=== PATIENT | female | born 1960 | race Caucasian/White ===

== ENCOUNTER 2016-06-29 11:10 | Inpatient (IN) | payer MEDICAID ==
[~2016-06-29] VITALS: Ht 165.1 cm; Wt 150.8 kg
[~2016-06-29 11:10] MED LIST: LANTUS100 U/ML SQ; MOTRIN 600600 MG/TAB PO; NORCO 325 MG-51 TAB PO; NOVOLOG 100U100 U/M1 SQ; PERCOCET 325 MG1 TA2 PO; PRINZIDE 12.5 M1 TA1 PO; ZOCOR 80MG80 MG PO
[2016-06-29 12:30] VITALS: BP 122/59; PULSE 83; TEMP 98.1
[2016-06-29] MEDS ORDERED: TOPROL XL 50MG50 MG PO (13:50)
[2016-06-29] MEDS ORDERED: LASIX 40MG TABL40 MG PO (13:51)
[2016-06-29] MEDS ORDERED: NORVASC2.5 MG PO (13:51)
[2016-06-29 17:38] VITALS: BP 131/55; PULSE 89; TEMP 99.2
[2016-06-29 20:58] VITALS: BP 150/75; PULSE 93; TEMP 98.3
[2016-06-30] VITALS (370 sets, daily range): BP systolic 126–151; BP diastolic 50–67; PULSE 74–90; TEMP 98–99.7; O2SAT 85–100
[2016-06-30 08:50] LABS: ADJUSTED CALCIUM 9.1 mg/dL (8.4-10.2); ALBUMIN 3.3 gm/dL (3.5-5.0); BILIRUBIN,TOTAL 0.5 mg/dL (0.0-1.0); CALCIUM 8.5 mg/dL (8.4-10.2); CREATININE, serum 2.6 mg/dL (0.52-1.25); TOTAL PROTEIN 6.7 gm/dL (6.4-8.2)
[2016-06-30 09:26] LABS: MAGNESIUM 2.1 mg/dL (1.6-2.3); PHOSPHOROUS 7.6 mg/dL (2.5-4.5)
[2016-06-30 09:53] LABS: ARTERIAL BLD GAS TCO2 CT 37.3; ARTERIAL BLOOD GAS HCO3 34.2 meq/L (22-26); ARTERIAL BLOOD GAS PO2 63.9 mmHg (80-100); ARTERIAL BLOOD GAS PO2T 63.9 (80-100); OXYHEMOGLOBIN 86.9 %
[2016-06-30 09:54] LABS: ALLEN TEST NO; ARTERIAL BLOOD GAS PHT 7.14 C (7.35-7.45); ARTERIAL BLOOD GAS pH 7.14 (7.35-7.45); ATS? YES
[2016-06-30 11:04] LABS: ARTERIAL BLD GAS O2 SATURATION 92.4 % (92-100); ARTERIAL BLD GAS TCO2 CT 39.7; ARTERIAL BLOOD GAS BASE EXCESS 4.4 (-2-2); ARTERIAL BLOOD GAS HCO3 36.4 meq/L (22-26); ARTERIAL BLOOD GAS PO2 74.2 mmHg (80-100); ARTERIAL BLOOD GAS PO2T 74.2 (80-100); OXYHEMOGLOBIN 90.5 %
[2016-06-30 11:05] LABS: ARTERIAL BLOOD GAS PHT 7.16 C (7.35-7.45); ARTERIAL BLOOD GAS pH 7.16 (7.35-7.45); ATS? YES
[2016-06-30 14:10] LABS: HEMATOCRIT 41.5 % (37.0-47.0); MEAN CELL VOLUME 93 fl (80.0-100.0); MEAN CORPUSCULAR HEMOGLOBIN 25 pg (27.0-31.0); MEAN CORPUSCULAR HGB CONC 27 g/dl (33.0-37.0); MEAN PLATELET VOLUME 11.1 fl (7.4-10.4); PLATELET COUNT 181 K/mm3 (130-400); RED BLOOD COUNT 4.46 M/mm3 (4.10-5.30); REDCELL DISTRIBUTION WIDTH-CV 17.6 % (11.5-14.5); WHITE BLOOD COUNT 11.7 K/mm3 (4.8-10.8)
[2016-06-30 14:36] LABS: ADD PATHOLOGY DIFF REVIEW NO
[2016-06-30 14:52] LABS: NEUTROPHILS 67 % (42.0-75.2)
[2016-06-30 14:53] LABS: ANISOCYTOSIS 1+; HYPOCHROMIA 1+; PLATELET ESTIMATE NORMAL (NORMAL)
[2016-06-30 14:58] LABS: BAND 11 % (0-10); EOSINOPHIL 1 % (0-4); TOTAL CELLS COUNTED 100
[2016-06-30 16:55] LABS: ARTERIAL BLD GAS O2 SATURATION 98.5 % (92-100); ARTERIAL BLD GAS TCO2 CT 32.6; ARTERIAL BLOOD GAS BASE EXCESS 5.5 (-2-2); ARTERIAL BLOOD GAS HCO3 31.1 meq/L (22-26); ARTERIAL BLOOD GAS PHT 7.42 C (7.35-7.45); ARTERIAL BLOOD GAS pH 7.42 (7.35-7.45); OXYHEMOGLOBIN 96.7 %
[2016-06-30 16:56] LABS: ARTERIAL BLOOD GAS PO2 128.7 mmHg (80-100); ARTERIAL BLOOD GAS PO2T 128.7 (80-100); ATS? NO
[2016-07-01] VITALS (766 sets, daily range): BP systolic 120–129; BP diastolic 54–66; PULSE 93–99; TEMP 98.2–100.5; O2SAT 82–99
[2016-07-01 00:45] LABS: BRONCH WASH FLUID MONONUCLEAR 100 % (0-75); BRONCH WASH POLY - PMN 0 % (0-25)
[2016-07-01 04:23] LABS: ARTERIAL BLD GAS O2 SATURATION 95.6 % (92-100); ARTERIAL BLD GAS TCO2 CT 29.4; ARTERIAL BLOOD GAS HCO3 28.2 meq/L (22-26); ARTERIAL BLOOD GAS PO2 79.7 mmHg (80-100); ARTERIAL BLOOD GAS pH 7.46 (7.35-7.45); OXYHEMOGLOBIN 94.7 %
[2016-07-01 04:24] LABS: ALLEN TEST NO; ATS? NO
[2016-07-01 05:31] LABS: MEAN CORPUSCULAR HGB CONC 30 g/dl (33.0-37.0); MEAN PLATELET VOLUME 10.6 fl (7.4-10.4); PLATELET COUNT 171 K/mm3 (130-400); RED BLOOD COUNT 4.37 M/mm3 (4.10-5.30); REDCELL DISTRIBUTION WIDTH-CV 17.7 % (11.5-14.5); WHITE BLOOD COUNT 12.8 K/mm3 (4.8-10.8)
[2016-07-01 05:43] LABS: HEMATOCRIT 36.2 % (37.0-47.0); HEMOGLOBIN 10.7 g/dl (12.5-16.0); MEAN CELL VOLUME 83 fl (80.0-100.0); MEAN CORPUSCULAR HEMOGLOBIN 24 pg (27.0-31.0)
[2016-07-01 05:44] LABS: ADD PATHOLOGY DIFF REVIEW NO
[2016-07-01 05:46] LABS: ADJUSTED CALCIUM 9.7 mg/dL (8.4-10.2); ALBUMIN 2.8 gm/dL (3.5-5.0); BILIRUBIN,TOTAL 0.6 mg/dL (0.0-1.0); CALCIUM 8.7 mg/dL (8.4-10.2); CREATININE, serum 2.49 mg/dL (0.52-1.25); MAGNESIUM 1.8 mg/dL (1.6-2.3); PHOSPHOROUS 4.8 mg/dL (2.5-4.5); POTASSIUM 3.5 mmol/L (3.4-5.0); TOTAL PROTEIN 6.1 gm/dL (6.4-8.2)
[2016-07-01 09:02] LABS: ARTERIAL BLD GAS O2 SATURATION 96.1 % (92-100); ARTERIAL BLD GAS TCO2 CT 29.5; ARTERIAL BLOOD GAS HCO3 28.2 meq/L (22-26); ARTERIAL BLOOD GAS PHT 7.46 C (7.35-7.45); ARTERIAL BLOOD GAS PO2 86.4 mmHg (80-100); ARTERIAL BLOOD GAS PO2T 86.4 (80-100); ARTERIAL BLOOD GAS pH 7.46 (7.35-7.45); OXYHEMOGLOBIN 95.1 %
[2016-07-01 09:03] LABS: ABG VENTILATOR TIDAL VOLUME 420 mL; ALLEN TEST NO; ATS? NO
[2016-07-01 09:41] LABS: ANISOCYTOSIS 2+; BAND 7 % (0-10); NEUTROPHILS 82 % (42.0-75.2); PLATELET ESTIMATE NORMAL (NORMAL); POLYCHROMASIA 1+; TOTAL CELLS COUNTED 100
[2016-07-02] VITALS (1079 sets, daily range): BP systolic 130–151; BP diastolic 57–71; PULSE 82–96; TEMP 98.4–101.4; O2SAT 88–99
[2016-07-02 05:03] LABS: ARTERIAL BLD GAS O2 SATURATION 92.4 % (92-100); ARTERIAL BLD GAS TCO2 CT 27.9; ARTERIAL BLOOD GAS BASE EXCESS 2.2 (-2-2); ARTERIAL BLOOD GAS HCO3 26.7 meq/L (22-26); ARTERIAL BLOOD GAS PHT 7.43 C (7.35-7.45); ARTERIAL BLOOD GAS PO2 69.4 mmHg (80-100); ARTERIAL BLOOD GAS PO2T 69.4 (80-100); ARTERIAL BLOOD GAS pH 7.43 (7.35-7.45); OXYHEMOGLOBIN 91.6 %
[2016-07-02 05:04] LABS: ATS? NO
[2016-07-02 06:15] LABS: BASO % 0.1 % (0.0-2.0); GRAN # 8.3 (1.4-6.5); GRAN % 87.2 % (42.2-75.2); LYMPH # 0.5 (1.2-3.4); LYMPH % 4.8 % (20.0-51.0); MEAN CELL VOLUME 83 fl (80.0-100.0); MEAN CORPUSCULAR HEMOGLOBIN 25 pg (27.0-31.0); MEAN CORPUSCULAR HGB CONC 30 g/dl (33.0-37.0); MEAN PLATELET VOLUME 10.5 fl (7.4-10.4); MONO # 0.7 (0.1-0.6); MONO % 6.9 % (1.7-9.3); PLATELET COUNT 168 K/mm3 (130-400); RED BLOOD COUNT 4.44 M/mm3 (4.10-5.30); REDCELL DISTRIBUTION WIDTH-CV 17.7 % (11.5-14.5); WHITE BLOOD COUNT 9.5 K/mm3 (4.8-10.8)
[2016-07-02 06:16] LABS: HEMOGLOBIN 10.9 g/dl (12.5-16.0)
[2016-07-02 06:41] LABS: ADJUSTED CALCIUM 9.7 mg/dL (8.4-10.2); BILIRUBIN,TOTAL 0.6 mg/dL (0.0-1.0); CALCIUM 8.9 mg/dL (8.4-10.2); CREATININE, serum 2.15 mg/dL (0.52-1.25); PHOSPHOROUS 6.4 mg/dL (2.5-4.5); POTASSIUM 3.7 mmol/L (3.4-5.0); TOTAL PROTEIN 6.3 gm/dL (6.4-8.2)
[2016-07-03] VITALS (822 sets, daily range): BP systolic 142–177; BP diastolic 57–77; PULSE 64–80; TEMP 97.1–98.7; O2SAT 67–100
[2016-07-03 05:38] LABS: ARTERIAL BLD GAS TCO2 CT 33.4; ARTERIAL BLOOD GAS BASE EXCESS 7.2 (-2-2); ARTERIAL BLOOD GAS PHT 7.46 C (7.35-7.45); ARTERIAL BLOOD GAS PO2 72.6 mmHg (80-100); ARTERIAL BLOOD GAS PO2T 72.6 (80-100); ARTERIAL BLOOD GAS pH 7.46 (7.35-7.45); OXYHEMOGLOBIN 91.5 %
[2016-07-03 05:41] LABS: ALLEN TEST NO
[2016-07-03 05:43] LABS: MEAN CELL VOLUME 84 fl (80.0-100.0); MEAN CORPUSCULAR HEMOGLOBIN 24 pg (27.0-31.0); MEAN CORPUSCULAR HGB CONC 29 g/dl (33.0-37.0); MEAN PLATELET VOLUME 10.4 fl (7.4-10.4); PLATELET COUNT 158 K/mm3 (130-400); RED BLOOD COUNT 4.53 M/mm3 (4.10-5.30); REDCELL DISTRIBUTION WIDTH-CV 17.4 % (11.5-14.5); WHITE BLOOD COUNT 6.5 K/mm3 (4.8-10.8)
[2016-07-03 05:47] LABS: ADD PATHOLOGY DIFF REVIEW NO
[2016-07-03 05:56] LABS: ADJUSTED CALCIUM 9.7 mg/dL (8.4-10.2); ALBUMIN 3.1 gm/dL (3.5-5.0); BILIRUBIN,TOTAL 0.5 mg/dL (0.0-1.0); CREATININE, serum 1.94 mg/dL (0.52-1.25); MAGNESIUM 1.9 mg/dL (1.6-2.3); PHOSPHOROUS 6.5 mg/dL (2.5-4.5); TOTAL PROTEIN 6.3 gm/dL (6.4-8.2)
[2016-07-03 10:41] LABS: BAND 3 % (0-10); NEUTROPHILS 86 % (42.0-75.2); TOTAL CELLS COUNTED 100
[2016-07-03 10:42] LABS: ANISOCYTOSIS 1+; HYPOCHROMIA 1+; MICROCYTOSIS 1+; OVALOCYTES 1+; PLATELET ESTIMATE NORMAL (NORMAL); TEAR DROP CELLS 1+; TOXIC GRANULATION PRESENT
[2016-07-04] VITALS (1179 sets, daily range): BP systolic 151–173; BP diastolic 57–69; PULSE 74–96; TEMP 98.1–99.5; O2SAT 86–99
[2016-07-04 02:30] LABS: ARTERIAL BLD GAS O2 SATURATION 91.9 % (92-100); ARTERIAL BLOOD GAS BASE EXCESS 9.7 (-2-2); ARTERIAL BLOOD GAS HCO3 35.5 meq/L (22-26); ARTERIAL BLOOD GAS pH 7.44 (7.35-7.45)
[2016-07-04 02:31] LABS: ALLEN TEST NO; ARTERIAL BLD GAS TCO2 CT 37.1; ATS? NO
[2016-07-04 06:22] LABS: ARTERIAL BLD GAS O2 SATURATION 92.1 % (92-100); ARTERIAL BLD GAS TCO2 CT 36.9; ARTERIAL BLOOD GAS BASE EXCESS 10.3 (-2-2); ARTERIAL BLOOD GAS HCO3 35.4 meq/L (22-26); ARTERIAL BLOOD GAS PHT 7.47 C (7.35-7.45); ARTERIAL BLOOD GAS pH 7.47 (7.35-7.45); OXYHEMOGLOBIN 91.5 %
[2016-07-04 06:23] LABS: ALLEN TEST NO; ATS? NO
[2016-07-04 06:25] LABS: BASO % 0.1 % (0.0-2.0); GRAN # 6.2 (1.4-6.5); GRAN % 83.6 % (42.2-75.2); HEMATOCRIT 40.5 % (37.0-47.0); LYMPH # 0.6 (1.2-3.4); MEAN CELL VOLUME 85 fl (80.0-100.0); MEAN CORPUSCULAR HEMOGLOBIN 24 pg (27.0-31.0); MEAN CORPUSCULAR HGB CONC 28 g/dl (33.0-37.0); MEAN PLATELET VOLUME 10.7 fl (7.4-10.4); MONO # 0.6 (0.1-0.6); MONO % 7.8 % (1.7-9.3); PLATELET COUNT 167 K/mm3 (130-400); RED BLOOD COUNT 4.75 M/mm3 (4.10-5.30); REDCELL DISTRIBUTION WIDTH-CV 17.6 % (11.5-14.5); WHITE BLOOD COUNT 7.4 K/mm3 (4.8-10.8)
[2016-07-04 06:41] LABS: CALCIUM 9.1 mg/dL (8.4-10.2); CREATININE, serum 1.75 mg/dL (0.52-1.25); POTASSIUM 3.9 mmol/L (3.4-5.0)
[2016-07-04 06:46] LABS: HEMOGLOBIN 11.5 g/dl (12.5-16.0); LYMPH % 7.7 % (20.0-51.0)
[2016-07-05] VITALS (1196 sets, daily range): BP systolic 124–160; BP diastolic 45–68; PULSE 74–99; TEMP 97.5–99.4; O2SAT 83–100
[2016-07-05 06:10] LABS: BASO % 0.1 % (0.0-2.0); GRAN # 5.8 (1.4-6.5); GRAN % 79.4 % (42.2-75.2); HEMATOCRIT 41.7 % (37.0-47.0); HEMOGLOBIN 11.6 g/dl (12.5-16.0); LYMPH # 0.7 (1.2-3.4); LYMPH % 9.6 % (20.0-51.0); MEAN CELL VOLUME 87 fl (80.0-100.0); MEAN CORPUSCULAR HEMOGLOBIN 24 pg (27.0-31.0); MEAN CORPUSCULAR HGB CONC 28 g/dl (33.0-37.0); MEAN PLATELET VOLUME 9.7 fl (7.4-10.4); MONO # 0.8 (0.1-0.6); MONO % 10.4 % (1.7-9.3); PLATELET COUNT 148 K/mm3 (130-400); RED BLOOD COUNT 4.79 M/mm3 (4.10-5.30); REDCELL DISTRIBUTION WIDTH-CV 17.4 % (11.5-14.5); WHITE BLOOD COUNT 7.3 K/mm3 (4.8-10.8)
[2016-07-05 06:22] LABS: CALCIUM 9.1 mg/dL (8.4-10.2); CREATININE, serum 1.66 mg/dL (0.52-1.25); POTASSIUM 4.2 mmol/L (3.4-5.0)
[2016-07-05 09:35] LABS: ARTERIAL BLD GAS O2 SATURATION 94.6 % (92-100); ARTERIAL BLD GAS TCO2 CT 36.7; ARTERIAL BLOOD GAS BASE EXCESS 9.4 (-2-2); ARTERIAL BLOOD GAS PHT 7.43 C (7.35-7.45); ARTERIAL BLOOD GAS PO2 81.3 mmHg (80-100); ARTERIAL BLOOD GAS PO2T 81.3 (80-100); ARTERIAL BLOOD GAS pH 7.43 (7.35-7.45); OXYHEMOGLOBIN 93.7 %
[2016-07-06] VITALS (1363 sets, daily range): BP systolic 125–158; BP diastolic 45–80; PULSE 68–114; TEMP 97.8–99.5; O2SAT 86–100
[2016-07-06 05:46] LABS: BASO % 0.1 % (0.0-2.0); EOS % 0.1 % (0-4.0); GRAN # 8.7 (1.4-6.5); GRAN % 83.8 % (42.2-75.2); HEMATOCRIT 43.1 % (37.0-47.0); LYMPH # 0.8 (1.2-3.4); LYMPH % 7.4 % (20.0-51.0); MEAN CELL VOLUME 88 fl (80.0-100.0); MEAN CORPUSCULAR HEMOGLOBIN 24 pg (27.0-31.0); MEAN CORPUSCULAR HGB CONC 27 g/dl (33.0-37.0); MEAN PLATELET VOLUME 10.6 fl (7.4-10.4); MONO # 0.8 (0.1-0.6); MONO % 8.1 % (1.7-9.3); PLATELET COUNT 147 K/mm3 (130-400); RED BLOOD COUNT 4.89 M/mm3 (4.10-5.30); REDCELL DISTRIBUTION WIDTH-CV 17.3 % (11.5-14.5); WHITE BLOOD COUNT 10.4 K/mm3 (4.8-10.8)
[2016-07-06 05:49] LABS: HEMOGLOBIN 11.7 g/dl (12.5-16.0)
[2016-07-06 05:58] LABS: CALCIUM 8.9 mg/dL (8.4-10.2); CREATININE, serum 1.56 mg/dL (0.52-1.25); POTASSIUM 4.7 mmol/L (3.4-5.0)
[2016-07-06 10:57] LABS: ARTERIAL BLD GAS O2 SATURATION 92.8 % (92-100); ARTERIAL BLD GAS TCO2 CT 40.8; ARTERIAL BLOOD GAS BASE EXCESS 11.2 (-2-2); ARTERIAL BLOOD GAS HCO3 38.7 meq/L (22-26); ARTERIAL BLOOD GAS PHT 7.39 C (7.35-7.45); ARTERIAL BLOOD GAS PO2 70.7 mmHg (80-100); ARTERIAL BLOOD GAS PO2T 70.7 (80-100); ARTERIAL BLOOD GAS pH 7.39 (7.35-7.45); OXYHEMOGLOBIN 91.6 %
[2016-07-06 10:59] LABS: ATS? NO
[2016-07-06 11:00] LABS: ARTERIAL BLD GAS O2 SATURATION 92.5 % (92-100); ARTERIAL BLD GAS TCO2 CT 37.9; ARTERIAL BLOOD GAS BASE EXCESS 8.5 (-2-2); ARTERIAL BLOOD GAS HCO3 35.9 meq/L (22-26); ARTERIAL BLOOD GAS PHT 7.36 C (7.35-7.45); ARTERIAL BLOOD GAS pH 7.36 (7.35-7.45); OXYHEMOGLOBIN 91.7 %
[2016-07-06 11:02] LABS: ATS? NO
[2016-07-06 16:01] LABS: ATS? NO
[2016-07-07] VITALS (1181 sets, daily range): BP systolic 151–167; BP diastolic 68–97; PULSE 86–111; TEMP 97.5–98.6; O2SAT 86–100
[2016-07-07 05:22] LABS: EOS # 0.1 (0.0-0.7); EOS % 0.5 % (0-4.0); GRAN # 7.1 (1.4-6.5); GRAN % 72.4 % (42.2-75.2); HEMATOCRIT 40.9 % (37.0-47.0); LYMPH # 1.5 (1.2-3.4); LYMPH % 15.7 % (20.0-51.0); MEAN CELL VOLUME 86 fl (80.0-100.0); MEAN CORPUSCULAR HEMOGLOBIN 24 pg (27.0-31.0); MEAN CORPUSCULAR HGB CONC 28 g/dl (33.0-37.0); MEAN PLATELET VOLUME 11.2 fl (7.4-10.4); MONO # 1.1 (0.1-0.6); MONO % 11.1 % (1.7-9.3); PLATELET COUNT 159 K/mm3 (130-400); RED BLOOD COUNT 4.74 M/mm3 (4.10-5.30); REDCELL DISTRIBUTION WIDTH-CV 17.1 % (11.5-14.5); WHITE BLOOD COUNT 9.8 K/mm3 (4.8-10.8)
[2016-07-07 05:27] LABS: HEMOGLOBIN 11.5 g/dl (12.5-16.0)
[2016-07-07 05:35] LABS: ADJUSTED CALCIUM 9.7 mg/dL (8.4-10.2); ALBUMIN 2.9 gm/dL (3.5-5.0); BILIRUBIN,TOTAL 0.8 mg/dL (0.0-1.0); CALCIUM 8.8 mg/dL (8.4-10.2); CREATININE, serum 1.48 mg/dL (0.52-1.25); POTASSIUM 4.1 mmol/L (3.4-5.0); TOTAL PROTEIN 5.8 gm/dL (6.4-8.2)
[2016-07-07 05:36] LABS: ALLEN TEST YES; ARTERIAL BLD GAS O2 SATURATION 93.3 % (92-100); ARTERIAL BLD GAS TCO2 CT 41.9; ARTERIAL BLOOD GAS BASE EXCESS 13.5 (-2-2); ARTERIAL BLOOD GAS HCO3 40.1 meq/L (22-26); ARTERIAL BLOOD GAS PO2 68.2 mmHg (80-100); ARTERIAL BLOOD GAS pH 7.45 (7.35-7.45); ATS? YES
[2016-07-08] VITALS (455 sets, daily range): BP systolic 124–146; BP diastolic 52–79; PULSE 93–108; TEMP 97.5–99.3; O2SAT 82–100
[2016-07-08 05:47] LABS: CALCIUM 8.6 mg/dL (8.4-10.2); CREATININE, serum 1.45 mg/dL (0.52-1.25); POTASSIUM 3.7 mmol/L (3.4-5.0)
[2016-07-09 00:18] VITALS: BP 149/79; PULSE 104; TEMP 97.6
[2016-07-09 04:10] VITALS: BP 140/72; PULSE 102; TEMP 98
[2016-07-09 07:12] LABS: CALCIUM 8.3 mg/dL (8.4-10.2); CREATININE, serum 1.31 mg/dL (0.52-1.25)
[2016-07-09 10:11] VITALS: BP 119/83; PULSE 101; TEMP 98.7
[2016-07-09 15:43] VITALS: BP 142/72; PULSE 112; TEMP 98.4
[2016-07-09 19:46] VITALS: BP 156/77; PULSE 102; TEMP 97.6
[2016-07-09 23:03] VITALS: BP 143/75; PULSE 110; TEMP 98
[2016-07-10 04:09] VITALS: BP 154/81; PULSE 104; TEMP 97.9
[2016-07-10 08:42] VITALS: BP 136/74; PULSE 104; TEMP 98.6
[2016-07-10] MEDS ORDERED: IPRATROPIUM BROM3 M1 IH ×2 (11:09→11:10)
[2016-07-10] MEDS ORDERED: LIPITOR 40MG TA40 MG PO (11:10)
[2016-07-10] MEDS ORDERED: APRESOLINE 25MG25 MG PO (11:10)
[2016-07-10] MEDS ORDERED: LOPRESSOR 225 MG/TAB PO (11:11)
[2016-07-10] MEDS ORDERED: ZESTRIL 10MG10 MG PO (11:11)
[2016-07-10] MEDS ORDERED: ASPIRIN 81M81 MG/TA2 PO (11:11)
[2016-07-10] MEDS ORDERED: LASIX 20MG TABL20 MG PO (11:12)
[2016-07-10] MEDS ORDERED: PROTONIX 40MG T40 MG PO (11:12)
[2016-07-10] MEDS ORDERED: PREDNISONE20 MG PO (11:13)
[2016-07-10] MEDS ORDERED: NOVOLOG FLEX100 U/ML SQ ×2 (11:15)
[2016-07-10] MEDS ORDERED: LANTUS SOLOS100 U/ML SQ (11:15)
[2016-07-10] MEDS ORDERED: K-DUR 10 MEQ T10 MEQ PO (11:16)
[2016-07-10 11:44] VITALS: BP 116/50; PULSE 94; TEMP 97.9
[2016-07-10 13:20] VITALS: BP 116/50; PULSE 94; TEMP 97.9
== END 2016-07-10 14:45 | disposition swing bed (61) | DRG 163 ==
LOC: ICU 11:10 → SURG 11:10 → ICU 06-30 11:51 → MEDICAL 07-08 14:03
PROVIDERS: Family Medicine; Internal Medicine Nephrology; Internal Medicine Pulmonary Disease
PROC: 0BH17EZ Insertion of Endotracheal Airway into Trachea, Via Natural or Artificial Opening (ICD-10-PCS; principal; 2016-06-29)
PROC: 0B958ZZ Drainage of Right Middle Lobe Bronchus, Via Natural or Artificial Opening Endoscopic (ICD-10-PCS; 2016-06-30)
PROC: 0B968ZZ Drainage of Right Lower Lobe Bronchus, Via Natural or Artificial Opening Endoscopic (ICD-10-PCS; 2016-06-30)
PROC: 0B9B8ZZ Drainage of Left Lower Lobe Bronchus, Via Natural or Artificial Opening Endoscopic (ICD-10-PCS; 2016-06-30)
PROC: 5A1955Z Respiratory Ventilation, Greater than 96 Consecutive Hours (ICD-10-PCS; 2016-06-30)
PROC: 0B968ZZ Drainage of Right Lower Lobe Bronchus, Via Natural or Artificial Opening Endoscopic (ICD-10-PCS; 2016-07-02)
PROC: 0B9B8ZZ Drainage of Left Lower Lobe Bronchus, Via Natural or Artificial Opening Endoscopic (ICD-10-PCS; 2016-07-02)
PROC: 0B968ZZ Drainage of Right Lower Lobe Bronchus, Via Natural or Artificial Opening Endoscopic (ICD-10-PCS; 2016-07-03)
DX: J15.211 Pneumonia due to Methicillin susceptible Staphylococcus aureus (principal); I50.33 Acute on chronic diastolic (congestive) heart failure; J96.01 Acute respiratory failure with hypoxia; J96.02 Acute respiratory failure with hypercapnia; I13.0 Hypertensive heart and chronic kidney disease with heart failure and stage 1 through stage 4 chronic kidney disease, or unspecified chronic kidney disease; N18.4 Chronic kidney disease, stage 4 (severe); Z68.43 Body mass index [BMI] 50.0-59.9, adult; N17.9 Acute kidney failure, unspecified; E87.0 Hyperosmolality and hypernatremia; J69.0 Pneumonitis due to inhalation of food and vomit; E11.21 Type 2 diabetes mellitus with diabetic nephropathy; E11.65 Type 2 diabetes mellitus with hyperglycemia; E66.01 Morbid (severe) obesity due to excess calories; Z85.528 Personal history of other malignant neoplasm of kidney; Z79.4 Long term (current) use of insulin; E87.5 Hyperkalemia; Z90.5 Acquired absence of kidney; F17.210 Nicotine dependence, cigarettes, uncomplicated; I27.2 Other secondary pulmonary hypertension
CPT/HCPCS: 99222-AI; 99232-AI; 99233-AI; 99239; C1751; C9113; J0330; J0692; J1644; J1815; J1956; J2060; J2250; J2704; J2920; J2930; J3010; J3370; J3480; J7050; J7512

== ENCOUNTER → 2016-07-14 | Outpatient (REF) ==
[~2016-07-14] MED LIST changes: +APRESOLINE 25MG25 MG PO; +ASPIRIN 81M81 MG/TA2 PO; +IPRATROPIUM BROM3 M1 IH; +K-DUR 10 MEQ T10 MEQ PO; +LANTUS SOLOS100 U/ML SQ; +LASIX 20MG TABL20 MG PO; +LASIX 40MG TABL40 MG PO; +LIPITOR 40MG TA40 MG PO; +LOPRESSOR 225 MG/TAB PO; +NORVASC2.5 MG PO; +NOVOLOG FLEX100 U/ML SQ; +PREDNISONE20 MG PO; +PROTONIX 40MG T40 MG PO; +TOPROL XL 50MG50 MG PO; +ZESTRIL 10MG10 MG PO
[2016-07-14 12:28] LABS: THYROID STIMULATING HORMONE 0.148 uIU/mL (0.465-4.680)
== END ==
LOC: ZLAB.WCH 10:39
PROVIDERS: Internal Medicine
DX: Z01.89 Encounter for other specified special examinations (principal)

== ENCOUNTER → 2016-08-26 | Outpatient (REF) ==
[2016-08-26 11:40] LABS: TOTAL IRON BINDING CAPACITY 273 ug/dL (265-497)
[2016-08-26 12:04] LABS: FERRITIN 114 ng/mL (11-264)
== END ==
LOC: ZLAB.WCH 05:49
PROVIDERS: Internal Medicine
DX: Z01.89 Encounter for other specified special examinations (principal)

== ENCOUNTER → 2016-10-01 | Outpatient (REF) ==
[2016-10-01 12:06] LABS: THYROID STIMULATING HORMONE 0.157 uIU/mL (0.465-4.680)
== END ==
LOC: ZLAB.WCH 11:03
PROVIDERS: Internal Medicine Nephrology
DX: Z01.89 Encounter for other specified special examinations (principal)

== ENCOUNTER → 2016-11-16 | Outpatient (REF) ==
[2016-11-16 19:56] LABS: THYROID STIMULATING HORMONE 0.251 uIU/mL (0.465-4.680)
== END ==
LOC: ZLAB.WCH 18:36
PROVIDERS: Internal Medicine
DX: Z01.89 Encounter for other specified special examinations (principal)

== ENCOUNTER 2017-04-13 11:50 | Inpatient (IN) | payer MEDICAID ==
[2017-04-13] VITALS (408 sets, daily range): BP systolic 152–165; BP diastolic 69–79; PULSE 90–101; TEMP 97–99; O2SAT 87–100
[~2017-04-13] VITALS: Ht 165.1 cm; Wt 147.5 kg
[~2017-04-13 11:50] MED LIST changes: -APRESOLINE50 MG PO; -DESOXIMETASONE0.25% TP; -LOPRESSOR100 MG PO; -MIRALAX PA17 GM/Dose PO; -NYSTATIN POWDER30 GM TOP; -PLAVIX 75MG TAB75 MG PO; -PULMICORT0.5 MG/2 M IH; -VITAMIN D 50,1.25 MG PO
[2017-04-13] MEDS ORDERED: PULMICORT0.5 MG/2 M IH (12:49)
[2017-04-13] MEDS ORDERED: APRESOLINE50 MG PO (12:50)
[2017-04-13] MEDS ORDERED: LANTUS100 U/ML SQ (12:55)
[2017-04-13] MEDS ORDERED: LOPRESSOR100 MG PO (12:59)
[2017-04-13] MEDS ORDERED: NORCO 325 MG-51 TAB PO (13:01)
[2017-04-13] MEDS ORDERED: NYSTATIN POWDER30 GM TOP (13:04)
[2017-04-13] MEDS ORDERED: PLAVIX 75MG TAB75 MG PO (13:05)
[2017-04-13] MEDS ORDERED: DESOXIMETASONE0.25% TP ×2 (13:06→13:15)
[2017-04-13] MEDS ORDERED: VITAMIN D 50,1.25 MG PO (13:08)
[2017-04-13] MEDS ORDERED: MIRALAX PA17 GM/Dose PO (13:12)
[2017-04-13 13:53] LABS: ARTERIAL BLD GAS O2 SATURATION 92.6 % (92-100); ARTERIAL BLD GAS TCO2 CT 25.5; ARTERIAL BLOOD GAS BASE EXCESS -1.4 (-2-2); ARTERIAL BLOOD GAS HCO3 24.1 meq/L (22-26); ARTERIAL BLOOD GAS PO2 68.4 mmHg (80-100); ARTERIAL BLOOD GAS pH 7.36 (7.35-7.45); OXYHEMOGLOBIN 91.6 %
[2017-04-13 13:54] LABS: ALLEN TEST YES; ALLENS TEST RESULT PASS; ATS? YES
[2017-04-13 15:56] LABS: INFLUENZA A NEGATIVE; INFLUENZA B NEGATIVE
[2017-04-14] VITALS (444 sets, daily range): BP systolic 132–165; BP diastolic 57–78; PULSE 74–96; TEMP 97–98.3; O2SAT 76–100
[2017-04-14 05:53] LABS: MEAN CELL VOLUME 85 fl (80.0-100.0); MEAN CORPUSCULAR HGB CONC 31 g/dl (33.0-37.0); MEAN PLATELET VOLUME 10.9 fl (7.4-10.4); PLATELET COUNT 189 K/mm3 (130-400); RED BLOOD COUNT 3.72 M/mm3 (4.10-5.30)
[2017-04-14 05:57] LABS: HEMATOCRIT 31.5 % (37.0-47.0); HEMOGLOBIN 9.6 g/dl (12.5-16.0); MEAN CORPUSCULAR HEMOGLOBIN 26 pg (27.0-31.0)
[2017-04-14 05:58] LABS: ADD PATHOLOGY DIFF REVIEW NO
[2017-04-14 06:06] LABS: CALCIUM 8.9 mg/dL (8.4-10.2); CREATININE, serum 2.14 mg/dL (0.52-1.25); POTASSIUM 4.6 mmol/L (3.4-5.0)
[2017-04-14 06:08] LABS: BAND 3 % (0-10); EOSINOPHIL 2 % (0-4); LYMPHOCYTE 9 % (20.0-51.0); NEUTROPHILS 84 % (42.0-75.2); ROULEAUX 1+; TOTAL CELLS COUNTED 100; TOXIC GRANULATION PRESENT
[2017-04-14 06:09] LABS: POLYCHROMASIA 1+
[2017-04-14 06:10] LABS: ANISOCYTOSIS 1+; HYPOCHROMIA 1+; MICROCYTOSIS 1+; POIKILOCYTOSIS 1+; STOMATOCYTE 1+
[2017-04-15 03:39] VITALS: BP 147/79; PULSE 82; TEMP 98.3
[2017-04-15 06:51] LABS: CALCIUM 8.9 mg/dL (8.4-10.2); CREATININE, serum 2.11 mg/dL (0.52-1.25); MAGNESIUM 1.7 mg/dL (1.6-2.3); POTASSIUM 4.5 mmol/L (3.4-5.0)
[2017-04-15 07:28] VITALS: BP 161/71; PULSE 73; TEMP 98.2
[2017-04-15 11:22] VITALS: BP 155/54; PULSE 73; TEMP 98.1
[2017-04-15 15:02] VITALS: BP 136/56; PULSE 75; TEMP 98.1
[2017-04-15 19:25] VITALS: BP 155/66; PULSE 73; TEMP 97.8
[2017-04-16 00:19] VITALS: BP 172/83; PULSE 69; TEMP 97.7
[2017-04-16 04:09] VITALS: BP 128/43; PULSE 64; TEMP 97.4
[2017-04-16 06:23] LABS: MEAN CELL VOLUME 86 fl (80.0-100.0); MEAN CORPUSCULAR HGB CONC 30 g/dl (33.0-37.0); MEAN PLATELET VOLUME 10.6 fl (7.4-10.4); PLATELET COUNT 185 K/mm3 (130-400); RED BLOOD COUNT 3.61 M/mm3 (4.10-5.30); WHITE BLOOD COUNT 11.2 K/mm3 (4.8-10.8)
[2017-04-16 06:24] LABS: HEMATOCRIT 30.9 % (37.0-47.0); HEMOGLOBIN 9.4 g/dl (12.5-16.0); MEAN CORPUSCULAR HEMOGLOBIN 26 pg (27.0-31.0)
[2017-04-16 06:25] LABS: ADD PATHOLOGY DIFF REVIEW NO
[2017-04-16 06:50] LABS: CALCIUM 8.6 mg/dL (8.4-10.2); CREATININE, serum 2.06 mg/dL (0.52-1.25); MAGNESIUM 1.8 mg/dL (1.6-2.3); POTASSIUM 4.1 mmol/L (3.4-5.0)
[2017-04-16 07:02] LABS: BAND 2 % (0-10); LYMPHOCYTE 33 % (20.0-51.0); METAMYELOCYTE 3 % (0-0); NEUTROPHILS 57 % (42.0-75.2); PLATELET ESTIMATE NORMAL (NORMAL); TOTAL CELLS COUNTED 100
[2017-04-16] MEDS ORDERED: TRADJENTA5 MG PO (07:25)
[2017-04-16] MEDS ORDERED: LEVEMIR FLEX100 U/ML SQ (07:26)
[2017-04-16] MEDS ORDERED: NOVOLOG FLEX100 U/ML SQ (07:26)
[2017-04-16 07:32] VITALS: BP 167/69; PULSE 65; TEMP 97.3
[2017-04-16] MEDS ORDERED: HYDRALAZINE HC100 MG PO (08:52)
[2017-04-16] MEDS ORDERED: PREDNISONE20 MG PO (08:59)
[2017-04-16] MEDS ORDERED: JANUVIA25 MG PO (09:46)
== END 2017-04-16 11:29 | disposition home or self-care (01) | DRG 189 ==
LOC: ICU 11:50 → MEDICAL 11:50
PROVIDERS: Internal Medicine; Nurse Practitioner Family
DX: J96.21 Acute and chronic respiratory failure with hypoxia (principal); J44.1 Chronic obstructive pulmonary disease with (acute) exacerbation; I50.30 Unspecified diastolic (congestive) heart failure; E66.2 Morbid (severe) obesity with alveolar hypoventilation; N17.9 Acute kidney failure, unspecified; Z68.43 Body mass index [BMI] 50.0-59.9, adult; J96.22 Acute and chronic respiratory failure with hypercapnia; N18.9 Chronic kidney disease, unspecified; E11.65 Type 2 diabetes mellitus with hyperglycemia; E78.5 Hyperlipidemia, unspecified; Z85.528 Personal history of other malignant neoplasm of kidney; Z90.5 Acquired absence of kidney; Z79.4 Long term (current) use of insulin; Z87.891 Personal history of nicotine dependence; Z99.81 Dependence on supplemental oxygen
CPT/HCPCS: 99223-AI; 99232-AI; 99239; J0696; J1644; J1815; J2930; J7030; J7512

== ENCOUNTER → 2017-04-13 | Outpatient (REF) ==
[~2017-04-13] MED LIST changes: +APRESOLINE50 MG PO; +DESOXIMETASONE0.25% TP; +LOPRESSOR100 MG PO; +MIRALAX PA17 GM/Dose PO; +NYSTATIN POWDER30 GM TOP; +PLAVIX 75MG TAB75 MG PO; +PULMICORT0.5 MG/2 M IH; +VITAMIN D 50,1.25 MG PO
== END ==
LOC: ZLAB.WCH 18:03
DX: Z01.89 Encounter for other specified special examinations (principal)

== ENCOUNTER → 2017-05-20 | Outpatient (REF) ==
[~2017-05-20] MED LIST changes: +APRESOLINE50 MG PO; +DESOXIMETASONE0.25% TP; +HYDRALAZINE HC100 MG PO; +JANUVIA25 MG PO; +LEVEMIR FLEX100 U/ML SQ; +LOPRESSOR100 MG PO; +MIRALAX PA17 GM/Dose PO; +NYSTATIN POWDER30 GM TOP; +PLAVIX 75MG TAB75 MG PO; +PULMICORT0.5 MG/2 M IH; +TRADJENTA5 MG PO; +VITAMIN D 50,1.25 MG PO
[2017-05-20 18:38] LABS: IRON,SERUM 52 ug/dL (35-150)
[2017-05-20 18:47] LABS: TOTAL IRON BINDING CAPACITY 291 ug/dL (265-497)
[2017-05-20 19:14] LABS: FERRITIN 42 ng/mL (11-264)
== END ==
LOC: ZLAB.WCH 18:07
PROVIDERS: Internal Medicine
DX: Z01.89 Encounter for other specified special examinations (principal)

== ENCOUNTER → 2017-05-25 | Outpatient (REF) | LOC: ZLAB.WCH 18:05 | DX: Z01.89 Encounter for other specified special examinations (principal) ==

== ENCOUNTER 2017-06-08 17:10 | Inpatient (IN) | payer MEDICAID ==
[2017-06-08] VITALS (239 sets, daily range): BP systolic 123–149; BP diastolic 54–79; PULSE 81–86; TEMP 98–98.8; O2SAT 95–100
[~2017-06-08] VITALS: Ht 165.1 cm; Wt 148.0 kg
[2017-06-08] MEDS ORDERED: LASIX 20MG TABL20 MG PO (18:15)
[2017-06-08 21:33] LABS: ARTERIAL BLD GAS O2 SATURATION 97.1 % (92-100); ARTERIAL BLD GAS TCO2 CT 25.4; ARTERIAL BLOOD GAS PCO2 46.3 mmHg (35-45); ARTERIAL BLOOD GAS pH 7.33 (7.35-7.45)
[2017-06-09] VITALS (1052 sets, daily range): BP systolic 116–142; BP diastolic 7–75; PULSE 71–84; TEMP 97.6–98.9; O2SAT 88–100
[2017-06-09] MEDS ORDERED: DESYREL 100MG100 MG PO (02:39)
[2017-06-09] MEDS ORDERED: MEDROL 4MG DOSPA4 MG PO (02:40)
[2017-06-09] MEDS ORDERED: ANORO IH (02:41)
[2017-06-09] MEDS ORDERED: FERROUS SU325 MG/TAB PO (02:42)
[2017-06-09 05:49] LABS: MEAN CELL VOLUME 87 fl (80.0-100.0); MEAN CORPUSCULAR HGB CONC 29 g/dl (33.0-37.0); MEAN PLATELET VOLUME 10.2 fl (7.4-10.4); PLATELET COUNT 161 K/mm3 (130-400); RED BLOOD COUNT 3.28 M/mm3 (4.10-5.30); REDCELL DISTRIBUTION WIDTH-CV 15.9 % (11.5-14.5)
[2017-06-09 05:51] LABS: HEMATOCRIT 28.6 % (37.0-47.0); HEMOGLOBIN 8.4 g/dl (12.5-16.0); MEAN CORPUSCULAR HEMOGLOBIN 26 pg (27.0-31.0)
[2017-06-09 06:00] LABS: CALCIUM 8.2 mg/dL (8.4-10.2); CREATININE, serum 2.42 mg/dL (0.52-1.25); MAGNESIUM 1.7 mg/dL (1.6-2.3)
[2017-06-09 06:19] LABS: BAND 1 % (0-10); LYMPHOCYTE 4 % (20.0-51.0); NEUTROPHILS 93 % (42.0-75.2); POLYCHROMASIA 1+; ROULEAUX 2+
[2017-06-09 06:20] LABS: HYPOCHROMIA 1+; MICROCYTOSIS 1+; POIKILOCYTOSIS 1+
[2017-06-09 06:21] LABS: ANISOCYTOSIS 1+
[2017-06-09 06:24] LABS: ARTERIAL BLOOD GAS BASE EXCESS -4.1 (-2-2)
[2017-06-09 17:40] LABS: MAGNESIUM 1.7 mg/dL (1.6-2.3); PHOSPHOROUS 5.8 mg/dL (2.5-4.5); POTASSIUM 4.7 mmol/L (3.4-5.0)
[2017-06-10] VITALS (1097 sets, daily range): BP systolic 128–163; BP diastolic 57–87; PULSE 62–71; TEMP 97–97.9; O2SAT 82–100
[2017-06-10 05:54] LABS: MEAN CELL VOLUME 87 fl (80.0-100.0); MEAN CORPUSCULAR HGB CONC 30 g/dl (33.0-37.0); MEAN PLATELET VOLUME 10.7 fl (7.4-10.4); PLATELET COUNT 168 K/mm3 (130-400); RED BLOOD COUNT 3.31 M/mm3 (4.10-5.30); REDCELL DISTRIBUTION WIDTH-CV 15.9 % (11.5-14.5)
[2017-06-10 05:58] LABS: ARTERIAL BLD GAS O2 SATURATION 97.9 % (92-100); ARTERIAL BLD GAS TCO2 CT 22.2; ARTERIAL BLOOD GAS BASE EXCESS -5.4 (-2-2); ARTERIAL BLOOD GAS HCO3 20.9 meq/L (22-26); ARTERIAL BLOOD GAS pH 7.29 (7.35-7.45)
[2017-06-10 05:59] LABS: ARTERIAL BLOOD GAS PO2 130.6 mmHg (80-100)
[2017-06-10 06:06] LABS: HEMATOCRIT 28.7 % (37.0-47.0); HEMOGLOBIN 8.5 g/dl (12.5-16.0); MEAN CORPUSCULAR HEMOGLOBIN 26 pg (27.0-31.0)
[2017-06-10 06:08] LABS: CALCIUM 7.9 mg/dL (8.4-10.2); CREATININE, serum 2.62 mg/dL (0.52-1.25); MAGNESIUM 1.8 mg/dL (1.6-2.3); POTASSIUM 5.2 mmol/L (3.4-5.0)
[2017-06-10 07:52] LABS: ANISOCYTOSIS 1+; BAND 49 % (0-10); HYPOCHROMIA 1+; LYMPHOCYTE 11 % (20.0-51.0); NEUTROPHILS 38 % (42.0-75.2); PLATELET ESTIMATE NORMAL (NORMAL)
[2017-06-11] VITALS (555 sets, daily range): BP systolic 135–164; BP diastolic 60–88; PULSE 60–70; TEMP 97–98.7; O2SAT 89–100
[2017-06-11 08:22] LABS: BASO % 0.1 % (0.0-2.0); GRAN % 83.1 % (42.2-75.2); LYMPH # 0.8 (1.2-3.4); LYMPH % 7.9 % (20.0-51.0); MEAN CELL VOLUME 86 fl (80.0-100.0); MEAN CORPUSCULAR HGB CONC 30 g/dl (33.0-37.0); MEAN PLATELET VOLUME 10.4 fl (7.4-10.4); MONO # 0.6 (0.1-0.6); MONO % 6.4 % (1.7-9.3); PLATELET COUNT 182 K/mm3 (130-400); RED BLOOD COUNT 3.58 M/mm3 (4.10-5.30); REDCELL DISTRIBUTION WIDTH-CV 15.6 % (11.5-14.5)
[2017-06-11 08:23] LABS: HEMATOCRIT 30.8 % (37.0-47.0); HEMOGLOBIN 9.1 g/dl (12.5-16.0); MEAN CORPUSCULAR HEMOGLOBIN 25 pg (27.0-31.0)
[2017-06-11 08:32] LABS: ALBUMIN 3.1 gm/dL (3.5-5.0); BILIRUBIN,TOTAL 0.2 mg/dL (0.0-1.0); CALCIUM 8.4 mg/dL (8.4-10.2); CREATININE, serum 2.43 mg/dL (0.52-1.25)
[2017-06-12] VITALS (8 sets, daily range): BP systolic 129–154; BP diastolic 48–82; PULSE 60–71; TEMP 97–98.1
[2017-06-12 07:28] LABS: MEAN CELL VOLUME 86 fl (80.0-100.0); MEAN CORPUSCULAR HGB CONC 30 g/dl (33.0-37.0); MEAN PLATELET VOLUME 11.5 fl (7.4-10.4); PLATELET COUNT 173 K/mm3 (130-400); RED BLOOD COUNT 3.47 M/mm3 (4.10-5.30); REDCELL DISTRIBUTION WIDTH-CV 15.7 % (11.5-14.5)
[2017-06-12 07:38] LABS: HEMATOCRIT 29.8 % (37.0-47.0); HEMOGLOBIN 8.9 g/dl (12.5-16.0); MEAN CORPUSCULAR HEMOGLOBIN 26 pg (27.0-31.0)
[2017-06-12 07:40] LABS: ALBUMIN 2.9 gm/dL (3.5-5.0); BILIRUBIN,TOTAL 0.2 mg/dL (0.0-1.0); CALCIUM 8.2 mg/dL (8.4-10.2); CREATININE, serum 2.57 mg/dL (0.52-1.25); POTASSIUM 4.9 mmol/L (3.4-5.0); TOTAL PROTEIN 5.8 gm/dL (6.4-8.2)
[2017-06-12 09:17] LABS: BAND 6 % (0-10); LYMPHOCYTE 6 % (20.0-51.0); NEUTROPHILS 80 % (42.0-75.2); PLATELET ESTIMATE NORMAL (NORMAL)
[2017-06-12 09:18] LABS: HYPOCHROMIA 3+
[2017-06-13 03:09] VITALS: BP 149/65; PULSE 65; TEMP 97
[2017-06-13 07:42] LABS: MEAN CELL VOLUME 85 fl (80.0-100.0); MEAN CORPUSCULAR HGB CONC 30 g/dl (33.0-37.0); MEAN PLATELET VOLUME 10.9 fl (7.4-10.4); PLATELET COUNT 153 K/mm3 (130-400); RED BLOOD COUNT 3.34 M/mm3 (4.10-5.30); REDCELL DISTRIBUTION WIDTH-CV 15.5 % (11.5-14.5)
[2017-06-13 07:48] LABS: HEMATOCRIT 28.4 % (37.0-47.0); HEMOGLOBIN 8.6 g/dl (12.5-16.0); MEAN CORPUSCULAR HEMOGLOBIN 26 pg (27.0-31.0)
[2017-06-13 07:56] LABS: ALBUMIN 2.8 gm/dL (3.5-5.0); BILIRUBIN,TOTAL 0.1 mg/dL (0.0-1.0); CALCIUM 8.5 mg/dL (8.4-10.2); CREATININE, serum 2.5 mg/dL (0.52-1.25); TOTAL PROTEIN 5.4 gm/dL (6.4-8.2)
[2017-06-13 08:10] VITALS: BP 134/61; PULSE 58; TEMP 97.9
[2017-06-13 09:09] LABS: BAND 2 % (0-10); LYMPHOCYTE 31 % (20.0-51.0); METAMYELOCYTE 1 % (0-0); NEUTROPHILS 58 % (42.0-75.2); PLATELET ESTIMATE NORMAL (NORMAL)
[2017-06-13 09:10] LABS: HYPOCHROMIA 3+
[2017-06-13] MEDS ORDERED: LEVEMIR FLEX100 U/ML SQ (15:00)
[2017-06-13] MEDS ORDERED: NOVOLOG FLEX100 U/ML SQ (15:01)
[2017-06-13] MEDS ORDERED: PREDNISONE20 MG PO (15:09)
== END 2017-06-13 16:38 | disposition home or self-care (01) | DRG 193 ==
LOC: ICU 17:10 → MEDICAL 06-11 11:18 → ICU 06-11 11:18 → MEDICAL 06-13 16:38
PROVIDERS: Internal Medicine; Internal Medicine Pulmonary Disease
PROC: 02HV33Z Insertion of Infusion Device into Superior Vena Cava, Percutaneous Approach (ICD-10-PCS; principal; 2017-06-09)
DX: J10.1 Influenza due to other identified influenza virus with other respiratory manifestations (principal); J96.21 Acute and chronic respiratory failure with hypoxia; Z68.43 Body mass index [BMI] 50.0-59.9, adult; I13.0 Hypertensive heart and chronic kidney disease with heart failure and stage 1 through stage 4 chronic kidney disease, or unspecified chronic kidney disease; I50.32 Chronic diastolic (congestive) heart failure; E87.4 Mixed disorder of acid-base balance; N17.9 Acute kidney failure, unspecified; E66.01 Morbid (severe) obesity due to excess calories; N18.9 Chronic kidney disease, unspecified; E11.22 Type 2 diabetes mellitus with diabetic chronic kidney disease; E11.65 Type 2 diabetes mellitus with hyperglycemia; E11.21 Type 2 diabetes mellitus with diabetic nephropathy; Z85.520 Personal history of malignant carcinoid tumor of kidney; J44.9 Chronic obstructive pulmonary disease, unspecified; Z79.4 Long term (current) use of insulin; E87.5 Hyperkalemia; G89.29 Other chronic pain; I27.22 Pulmonary hypertension due to left heart disease; Z87.891 Personal history of nicotine dependence; D64.9 Anemia, unspecified
CPT/HCPCS: 99223-AI; 99232-AI; 99233-AI; 99239; C1751; J0692; J1644; J1815; J1956; J2920; J2930; J7030; J7120; J7512

== ENCOUNTER → 2017-06-18 | Outpatient (REF) ==
[~2017-06-18] MED LIST changes: +ANORO IH; +DESYREL 100MG100 MG PO; +FERROUS SU325 MG/TAB PO; +MEDROL 4MG DOSPA4 MG PO
[2017-06-18 19:50] LABS: IRON,SERUM 39 ug/dL (35-150)
[2017-06-18 19:59] LABS: TOTAL IRON BINDING CAPACITY 246 ug/dL (265-497)
[2017-06-18 20:28] LABS: FERRITIN 62 ng/mL (11-264)
== END ==
LOC: ZLAB.WCH 19:31
PROVIDERS: Internal Medicine
DX: Z01.89 Encounter for other specified special examinations (principal)

== ENCOUNTER → 2017-08-31 | Outpatient (REF) ==
[2017-08-31 15:27] LABS: IRON,SERUM 53 ug/dL (35-150)
[2017-08-31 15:36] LABS: TOTAL IRON BINDING CAPACITY 285 ug/dL (265-497)
[2017-08-31 16:05] LABS: FERRITIN 50 ng/mL (11-264)
== END ==
LOC: ZLAB.WCH 14:58
PROVIDERS: Internal Medicine
DX: Z01.89 Encounter for other specified special examinations (principal)

== ENCOUNTER 2017-09-13 09:40 | Inpatient (IN) | payer MEDICAID ==
[~2017-09-13] VITALS: Ht 162.6 cm; Wt 137.6 kg
[2017-09-13 10:46] VITALS: BP 143/53; PULSE 81; TEMP 97.8
[2017-09-13] MEDS ORDERED: NOVOLOG FLEX100 U/ML SQ (10:56)
[2017-09-13] MEDS ORDERED: LASIX 20MG TABL20 MG PO (11:04)
[2017-09-13 16:47] VITALS: BP 122/48; PULSE 79; TEMP 97.6
[2017-09-13 17:36] LABS: CALCIUM 7.8 mg/dL (8.4-10.2); POTASSIUM 4.3 mmol/L (3.4-5.0)
[2017-09-13 17:39] LABS: CREATININE, serum 4.47 mg/dL (0.52-1.25)
[2017-09-13 20:13] VITALS: BP 138/58; PULSE 78; TEMP 97.7
[2017-09-13 23:13] VITALS: BP 141/59; PULSE 79; TEMP 97.9
[2017-09-14 00:01] LABS: BUDDING YEAST Present /hpf; MUCOUS Present /lpf; PH 5 (5-8); SQUAMOUS EPITHELIAL 20-50 /hpf; URINE APPEARANCE Cloudy; URINE BACTERIA Many /hpf; URINE BILIRUBIN Negative (NEGATIVE); URINE BLOOD 2+ (NEGATIVE); URINE COLOR Yellow; URINE GLUCOSE 1+ (NEGATIVE); URINE KETONE Negative (NEGATIVE); URINE LEUKOCYTE ESTERASE 1+ (NEGATIVE); URINE NITRATE Negative (NEGATIVE); URINE PROTEIN(semi-quant) 2+ (NEGATIVE); URINE UROBILINOGEN Negative (NEGATIVE); URINE WBC 20-50 /hpf
[2017-09-14 00:07] LABS: COLLECTION METHOD CLEAN CATCH
[2017-09-14 00:26] LABS: URINE PROTEIN:CREAT RATIO 3.68 (0.00-0.14)
[2017-09-14 04:14] VITALS: BP 128/62; PULSE 79; TEMP 98.1
[2017-09-14 07:09] LABS: CALCIUM 8.1 mg/dL (8.4-10.2); MAGNESIUM 1.5 mg/dL (1.6-2.3); POTASSIUM 4.2 mmol/L (3.4-5.0)
[2017-09-14 07:11] LABS: MEAN CELL VOLUME 84 fl (80.0-100.0); MEAN CORPUSCULAR HGB CONC 30 g/dl (33.0-37.0); MEAN PLATELET VOLUME 10.7 fl (7.4-10.4); PLATELET COUNT 160 K/mm3 (130-400); RED BLOOD COUNT 3.33 M/mm3 (4.10-5.30); REDCELL DISTRIBUTION WIDTH-CV 16.9 % (11.5-14.5)
[2017-09-14 07:14] LABS: HEMATOCRIT 27.8 % (37.0-47.0); HEMOGLOBIN 8.4 g/dl (12.5-16.0); MEAN CORPUSCULAR HEMOGLOBIN 25 pg (27.0-31.0)
[2017-09-14 07:16] LABS: CREATININE, serum 4.55 mg/dL (0.52-1.25)
[2017-09-14 08:38] LABS: BAND 12 % (0-10); EOSINOPHIL 4 % (0-4); LYMPHOCYTE 31 % (20.0-51.0); METAMYELOCYTE 3 % (0-0); NEUTROPHILS 49 % (42.0-75.2)
[2017-09-14 08:39] LABS: PLATELET ESTIMATE NORMAL (NORMAL)
[2017-09-14 08:51] VITALS: BP 114/40; PULSE 74; TEMP 98.1
[2017-09-14 10:51] VITALS: BP 137/51; PULSE 69; TEMP 98
[2017-09-14 15:13] VITALS: BP 132/59; PULSE 74; TEMP 97.7
[2017-09-14 20:09] VITALS: BP 135/56; PULSE 71; TEMP 97.8
[2017-09-14 22:25] VITALS: BP 146/50; PULSE 74; TEMP 97.9
[2017-09-15 03:33] VITALS: BP 132/51; PULSE 65; TEMP 97.9
[2017-09-15 07:04] LABS: MEAN CELL VOLUME 83 fl (80.0-100.0); MEAN CORPUSCULAR HGB CONC 31 g/dl (33.0-37.0); MEAN PLATELET VOLUME 10.7 fl (7.4-10.4); PLATELET COUNT 163 K/mm3 (130-400); RED BLOOD COUNT 3.16 M/mm3 (4.10-5.30); REDCELL DISTRIBUTION WIDTH-CV 16.8 % (11.5-14.5)
[2017-09-15 07:10] LABS: HEMATOCRIT 26.3 % (37.0-47.0); HEMOGLOBIN 8.1 g/dl (12.5-16.0); MEAN CORPUSCULAR HEMOGLOBIN 26 pg (27.0-31.0)
[2017-09-15 07:27] LABS: CALCIUM 8.6 mg/dL (8.4-10.2); POTASSIUM 4.1 mmol/L (3.4-5.0)
[2017-09-15 07:33] LABS: CREATININE, serum 4.16 mg/dL (0.52-1.25)
[2017-09-15 07:45] VITALS: BP 142/53; PULSE 66; TEMP 98.7
[2017-09-15 08:57] LABS: ANISOCYTOSIS 1+; BAND 2 % (0-10); LYMPHOCYTE 31 % (20.0-51.0); NEUTROPHILS 61 % (42.0-75.2); PLATELET ESTIMATE NORMAL (NORMAL)
[2017-09-15 08:58] LABS: OVALOCYTES 1+
[2017-09-15] MEDS ORDERED: LASIX 20MG TABL20 MG PO (11:44)
[2017-09-15] MEDS ORDERED: LEVEMIR FLEX100 U/ML SQ (11:45)
[2017-09-15] MEDS ORDERED: NOVOLOG FLEX100 U/ML SQ (11:45)
[2017-09-15 13:08] VITALS: BP 151/55; PULSE 75; TEMP 97.5
== END 2017-09-15 15:55 | disposition home health service (06) | DRG 683 ==
LOC: MEDICAL 09:40
PROVIDERS: Internal Medicine; Nurse Practitioner Family; Physician Assistant
DX: N17.9 Acute kidney failure, unspecified (principal); I13.0 Hypertensive heart and chronic kidney disease with heart failure and stage 1 through stage 4 chronic kidney disease, or unspecified chronic kidney disease; I50.32 Chronic diastolic (congestive) heart failure; Z68.42 Body mass index [BMI] 45.0-49.9, adult; E87.2 Acidosis; E11.22 Type 2 diabetes mellitus with diabetic chronic kidney disease; E11.649 Type 2 diabetes mellitus with hypoglycemia without coma; N18.9 Chronic kidney disease, unspecified; E78.5 Hyperlipidemia, unspecified; E66.01 Morbid (severe) obesity due to excess calories; D63.1 Anemia in chronic kidney disease; J44.9 Chronic obstructive pulmonary disease, unspecified; R19.7 Diarrhea, unspecified; L29.9 Pruritus, unspecified; Z90.5 Acquired absence of kidney; Z85.528 Personal history of other malignant neoplasm of kidney; Z79.4 Long term (current) use of insulin
CPT/HCPCS: 99223-AI; 99232-AI; 99239; G8987-GO; G8988-GO; J0881-EA-EB-EC; J1644; J1815; J7030

== ENCOUNTER → 2017-11-26 | Outpatient (REF) ==
[2017-11-26 15:14] LABS: FERRITIN 28 ng/mL (11-264)
[2017-11-26 15:31] LABS: IRON,SERUM 53 ug/dL (35-150)
[2017-11-26 15:41] LABS: TOTAL IRON BINDING CAPACITY 352 ug/dL (265-497)
== END ==
LOC: ZLAB.WCH 14:28
PROVIDERS: Internal Medicine
DX: Z01.89 Encounter for other specified special examinations (principal)

== ENCOUNTER → 2017-12-31 | Outpatient (REF) ==
[2017-12-31 16:27] LABS: IRON,SERUM 45 ug/dL (35-150)
[2017-12-31 16:37] LABS: TOTAL IRON BINDING CAPACITY 334 ug/dL (265-497)
[2017-12-31 17:03] LABS: FERRITIN 30 ng/mL (11-264)
== END ==
LOC: ZLAB.WCH 16:15
PROVIDERS: Internal Medicine
DX: Z01.89 Encounter for other specified special examinations (principal)

== ENCOUNTER → 2018-03-31 | Outpatient (REF) ==
[2018-03-31 16:54] LABS: IRON,SERUM 50 ug/dL (35-150)
[2018-03-31 17:03] LABS: TOTAL IRON BINDING CAPACITY 337 ug/dL (265-497)
[2018-03-31 17:31] LABS: FERRITIN 45 ng/mL (11-264)
== END ==
LOC: ZLAB.WCH 16:43
PROVIDERS: Internal Medicine
DX: Z01.89 Encounter for other specified special examinations (principal)

== ENCOUNTER → 2018-07-14 | Outpatient (REF) | LOC: ZLAB.WCH 16:00 | DX: Z01.89 Encounter for other specified special examinations (principal) ==

== ENCOUNTER → 2018-09-20 | Outpatient (REF) | LOC: ZLAB.WCH 09:43 | DX: Z01.89 Encounter for other specified special examinations (principal) ==

== ENCOUNTER → 2018-10-20 | Outpatient (CLI) | payer MEDICARE | LOC: COL.VAS 11:00 | DX: N18.5 Chronic kidney disease, stage 5 (principal) | CPT/HCPCS: G0365 ==

== ENCOUNTER → 2018-11-02 | Outpatient (CLI) | payer MEDICARE | LOC: MC.RAD 08:12 | DX: R92.0 Mammographic microcalcification found on diagnostic imaging of breast (principal); N63.10 Unspecified lump in the right breast, unspecified quadrant ==

== ENCOUNTER 2019-01-13 21:36 | Inpatient (IN) | payer MEDICARE ==
[~2019-01-13] VITALS: Ht 162.6 cm; Wt 152.1 kg
[2019-01-14] VITALS (7 sets, daily range): BP systolic 124–146; BP diastolic 45–59; PULSE 68–81; TEMP 97.6–98.5
[2019-01-14 03:14] LABS: ALBUMIN 3.6 gm/dL (3.5-5.0); BILIRUBIN,TOTAL 0.3 mg/dL (0.0-1.0); CALCIUM 8.4 mg/dL (8.4-10.2); CREATININE, serum 5.86 (0.52-1.25); POTASSIUM 5.1 mmol/L (3.4-5.0); TOTAL PROTEIN 6.8 gm/dL (6.4-8.2)
[2019-01-14 03:14] LABS: COLLECTION METHOD CLEAN CATCH
[2019-01-14 03:15] LABS: HEMATOCRIT 25.5 % (37.0-47.0); HEMOGLOBIN 7.9 g/dl (12.5-16.0); MEAN CELL VOLUME 87 fl (80.0-100.0); MEAN CORPUSCULAR HEMOGLOBIN 27 pg (27.0-31.0); MEAN CORPUSCULAR HGB CONC 31 g/dl (33.0-37.0); MEAN PLATELET VOLUME 10.1 fl (7.4-10.4); PLATELET COUNT 187 K/mm3 (130-400); RED BLOOD COUNT 2.93 M/mm3 (4.10-5.30)
[2019-01-14 03:16] LABS: EOSINOPHIL 3 % (0-4); INR 0.9 (0.8-3.0); LYMPHOCYTE 20 % (20.0-51.0); MYELOCYTE 1 % (0-0); NEUTROPHILS 72 % (42.0-75.2); PLATELET ESTIMATE NORMAL (NORMAL); PROTHROMBIN TIME 10.7 SECONDS (9.7-12.8)
[2019-01-14 03:17] LABS: PH 5 (5-8); SQUAMOUS EPITHELIAL 0-2 /hpf; URINE APPEARANCE Clear; URINE BACTERIA Many /hpf; URINE BILIRUBIN Negative (NEGATIVE); URINE BLOOD 1+ (NEGATIVE); URINE COLOR Straw; URINE GLUCOSE 2+ (NEGATIVE); URINE KETONE Negative (NEGATIVE); URINE LEUKOCYTE ESTERASE Negative (NEGATIVE); URINE NITRATE Negative (NEGATIVE); URINE PROTEIN(semi-quant) 3+ (NEGATIVE); URINE UROBILINOGEN Negative (NEGATIVE)
[2019-01-14] MEDS ORDERED: NOVOLOG 100U100 U/M1 SQ (06:16)
[2019-01-14] MEDS ORDERED: LEVEMIR100 U/ML SQ (06:18)
[2019-01-14] MEDS ORDERED: NORVASC 5MG5 MG/TAB PO (06:23)
[2019-01-14] MEDS ORDERED: DEMADEX 20MG20 M1 PO (06:24)
[2019-01-14] MEDS ORDERED: ASPIRIN 81M81 MG/TA2 PO (06:25)
[2019-01-14] MEDS ORDERED: TOPROL XL100 MG PO (06:35)
[2019-01-14 16:38] LABS: URINE PROTEIN:CREAT RATIO 6.64 (0.00-0.14)
[2019-01-15 03:28] VITALS: BP 123/48; PULSE 72; TEMP 97.7
[2019-01-15 05:58] LABS: MEAN CELL VOLUME 88 fl (80.0-100.0); MEAN CORPUSCULAR HGB CONC 30 g/dl (33.0-37.0); MEAN PLATELET VOLUME 10.4 fl (7.4-10.4); PLATELET COUNT 168 K/mm3 (130-400); RED BLOOD COUNT 2.67 M/mm3 (4.10-5.30); REDCELL DISTRIBUTION WIDTH-CV 15.3 % (11.5-14.5)
[2019-01-15 06:02] LABS: HEMATOCRIT 23.4 % (37.0-47.0); MEAN CORPUSCULAR HEMOGLOBIN 26 pg (27.0-31.0)
[2019-01-15 06:06] LABS: ALBUMIN 3.2 gm/dL (3.5-5.0); CALCIUM 8.5 mg/dL (8.4-10.2); POTASSIUM 4.8 mmol/L (3.4-5.0)
[2019-01-15 06:08] LABS: CREATININE, serum 5.37 (0.52-1.25)
[2019-01-15 06:15] LABS: ANISOCYTOSIS 1+; EOSINOPHIL 1 % (0-4); HYPOCHROMIA 3+; LYMPHOCYTE 19 % (20.0-51.0); MYELOCYTE 1 % (0-0); NEUTROPHILS 72 % (42.0-75.2); PLATELET ESTIMATE NORMAL (NORMAL)
[2019-01-15 08:36] VITALS: BP 119/37; PULSE 73; TEMP 97.3
[2019-01-15 12:53] VITALS: BP 150/54; PULSE 74; TEMP 97.7
[2019-01-15 16:48] VITALS: BP 157/61; PULSE 77; TEMP 97.6
[2019-01-15 20:06] VITALS: BP 159/51; PULSE 81; TEMP 98.2
[2019-01-16] VITALS (10 sets, daily range): BP systolic 115–143; BP diastolic 51–65; PULSE 71–82; TEMP 97.5–98.7
[2019-01-16 05:44] LABS: BASO % 0.3 % (0.0-2.0); EOS # 0.2 (0.0-0.7); EOS % 2.7 % (0-4.0); GRAN % 63.9 % (42.2-75.2); LYMPH # 1.7 (1.2-3.4); LYMPH % 21.9 % (20.0-51.0); MEAN CELL VOLUME 87 fl (80.0-100.0); MEAN CORPUSCULAR HGB CONC 30 g/dl (33.0-37.0); MEAN PLATELET VOLUME 10.6 fl (7.4-10.4); MONO # 0.8 (0.1-0.6); MONO % 9.7 % (1.7-9.3); PLATELET COUNT 164 K/mm3 (130-400); RED BLOOD COUNT 2.78 M/mm3 (4.10-5.30); REDCELL DISTRIBUTION WIDTH-CV 15.4 % (11.5-14.5)
[2019-01-16 05:48] LABS: HEMATOCRIT 24.3 % (37.0-47.0); HEMOGLOBIN 7.2 g/dl (12.5-16.0); MEAN CORPUSCULAR HEMOGLOBIN 26 pg (27.0-31.0)
[2019-01-16 05:55] LABS: ALBUMIN 3.3 gm/dL (3.5-5.0); CALCIUM 9.3 mg/dL (8.4-10.2); CREATININE, serum 5.15 (0.52-1.25); PHOSPHOROUS 7.7 mg/dL (2.5-4.5); POTASSIUM 4.4 mmol/L (3.4-5.0)
[2019-01-17 00:32] LABS: HEPATITIS B CORE AB,TOTAL Negative (()); HEPATITIS B SURFACE ANTIBODY <2.0 (()); HEPATITIS B SURFACE ANTIGEN Negative (Negative); HEPATITIS C VIRUS ANTIBODY Negative (Negative)
[2019-01-17 04:21] VITALS: BP 122/40; PULSE 72; TEMP 98.2
[2019-01-17 05:55] LABS: KAPPA FREE LIGHT CHAIN-SERUM 76.31 mg/L (()); KAPPA LAMBDA RATIO 2.71 ratio (()); LAMDA FREE LIGHT CHAIN SERUM 28.16 mg/L (())
[2019-01-17 08:20] VITALS: BP 151/62; PULSE 72; TEMP 97.6
[2019-01-17 10:48] VITALS: BP 151/49; PULSE 73; TEMP 97.6
[2019-01-17 13:34] LABS: MEAN CELL VOLUME 87 fl (80.0-100.0); MEAN CORPUSCULAR HGB CONC 30 g/dl (33.0-37.0); MEAN PLATELET VOLUME 10.1 fl (7.4-10.4); PLATELET COUNT 161 K/mm3 (130-400); RED BLOOD COUNT 2.89 M/mm3 (4.10-5.30); REDCELL DISTRIBUTION WIDTH-CV 15.1 % (11.5-14.5)
[2019-01-17 13:35] LABS: HEMATOCRIT 25.2 % (37.0-47.0); HEMOGLOBIN 7.5 g/dl (12.5-16.0); MEAN CORPUSCULAR HEMOGLOBIN 26 pg (27.0-31.0)
[2019-01-17 13:43] LABS: ALBUMIN 3.5 gm/dL (3.5-5.0); CALCIUM 9.7 mg/dL (8.4-10.2); PHOSPHOROUS 5.6 mg/dL (2.5-4.5); POTASSIUM 4.3 mmol/L (3.4-5.0)
[2019-01-17 13:46] LABS: CREATININE, serum 4.21 (0.52-1.25)
[2019-01-17 13:48] LABS: EOSINOPHIL 2 % (0-4); LYMPHOCYTE 21 % (20.0-51.0); NEUTROPHILS 74 % (42.0-75.2)
[2019-01-17 13:49] LABS: OVALOCYTES 1+; PLATELET ESTIMATE NORMAL (NORMAL)
[2019-01-17 15:51] VITALS: BP 147/58; PULSE 72; TEMP 98.5
[2019-01-17 19:21] VITALS: BP 153/67; PULSE 77; TEMP 97.5
[2019-01-17 23:22] VITALS: BP 156/60; PULSE 75; TEMP 98.5
[2019-01-18 03:56] VITALS: BP 150/63; PULSE 76; TEMP 98
[2019-01-18 06:11] LABS: MEAN CELL VOLUME 88 fl (80.0-100.0); MEAN CORPUSCULAR HGB CONC 30 g/dl (33.0-37.0); MEAN PLATELET VOLUME 10.4 fl (7.4-10.4); PLATELET COUNT 171 K/mm3 (130-400); REDCELL DISTRIBUTION WIDTH-CV 15.1 % (11.5-14.5)
[2019-01-18 06:20] LABS: ALBUMIN 3.3 gm/dL (3.5-5.0); CALCIUM 9.9 mg/dL (8.4-10.2); PHOSPHOROUS 6.4 mg/dL (2.5-4.5); POTASSIUM 4.2 mmol/L (3.4-5.0)
[2019-01-18 06:21] LABS: CREATININE, serum 3.94 (0.52-1.25)
[2019-01-18 06:30] LABS: HEMATOCRIT 25.4 % (37.0-47.0); HEMOGLOBIN 7.5 g/dl (12.5-16.0); MEAN CORPUSCULAR HEMOGLOBIN 26 pg (27.0-31.0)
[2019-01-18 07:33] VITALS: BP 151/60; PULSE 72; TEMP 97.8
[2019-01-18 07:54] LABS: BAND 1 % (0-10); EOSINOPHIL 2 % (0-4); LYMPHOCYTE 9 % (20.0-51.0); NEUTROPHILS 86 % (42.0-75.2)
[2019-01-18 07:56] LABS: ANISOCYTOSIS 1+; HYPOCHROMIA 1+; PLATELET ESTIMATE NORMAL (NORMAL)
[2019-01-18 12:57] VITALS: BP 157/64; PULSE 73; TEMP 97.6
[2019-01-18] MEDS ORDERED: PHOSLO667 MG PO (14:46)
== END 2019-01-18 16:55 | disposition home health service (06) | DRG 674 ==
LOC: MEDICAL 21:36
PROVIDERS: ADMIT Internal Medicine Nephrology
PROC: 0JH63XZ Insertion of Tunneled Vascular Access Device into Chest Subcutaneous Tissue and Fascia, Percutaneous Approach (ICD-10-PCS; principal; 2019-01-16)
PROC: 02HV33Z Insertion of Infusion Device into Superior Vena Cava, Percutaneous Approach (ICD-10-PCS; 2019-01-16)
PROC: 5A1D70Z Performance of Urinary Filtration, Intermittent, Less than 6 Hours Per Day (ICD-10-PCS; 2019-01-17)
DX: N17.9 Acute kidney failure, unspecified (principal); I13.2 Hypertensive heart and chronic kidney disease with heart failure and with stage 5 chronic kidney disease, or end stage renal disease; I50.32 Chronic diastolic (congestive) heart failure; J96.11 Chronic respiratory failure with hypoxia; J96.12 Chronic respiratory failure with hypercapnia; N18.5 Chronic kidney disease, stage 5; E11.22 Type 2 diabetes mellitus with diabetic chronic kidney disease; D63.1 Anemia in chronic kidney disease; E66.01 Morbid (severe) obesity due to excess calories; J44.9 Chronic obstructive pulmonary disease, unspecified; E78.5 Hyperlipidemia, unspecified; R53.81 Other malaise; E11.319 Type 2 diabetes mellitus with unspecified diabetic retinopathy without macular edema; G89.29 Other chronic pain; M54.9 Dorsalgia, unspecified; G47.30 Sleep apnea, unspecified; E11.40 Type 2 diabetes mellitus with diabetic neuropathy, unspecified; Z79.4 Long term (current) use of insulin; Z85.528 Personal history of other malignant neoplasm of kidney; Z90.5 Acquired absence of kidney; Z99.81 Dependence on supplemental oxygen; Z79.02 Long term (current) use of antithrombotics/antiplatelets; Z79.51 Long term (current) use of inhaled steroids; Z79.82 Long term (current) use of aspirin; Z87.891 Personal history of nicotine dependence
CPT/HCPCS: C1876; J0881; J1644; J1815; J2250; J3010; J7030

== ENCOUNTER 2019-03-27 07:56 | Outpatient (CLI) | payer MEDICARE ==
[2019-03-27] VITALS (7 sets, daily range): BP systolic 137–163; BP diastolic 57–77; PULSE 67–82; TEMP 99.4
[~2019-03-27] VITALS: Ht 162.6 cm; Wt 145.0 kg
[~2019-03-27 07:56] MED LIST changes: +DEMADEX 20MG20 M1 PO; +LEVEMIR100 U/ML SQ; +NORVASC 5MG5 MG/TAB PO; +PHOSLO667 MG PO; +TOPROL XL100 MG PO
[2019-03-27] MEDS ORDERED: LIPITOR 40MG TA40 MG PO (08:29)
[2019-03-27] MEDS ORDERED: PROTONIX 40MG T40 MG PO (08:31)
[2019-03-27] MEDS ORDERED: PHOSLO667 MG PO (08:32)
[2019-03-27 10:11] LABS: MEAN CELL VOLUME 90 fl (80.0-100.0); MEAN CORPUSCULAR HGB CONC 30 g/dl (33.0-37.0); MEAN PLATELET VOLUME 10.6 fl (7.4-10.4); PLATELET COUNT 189 K/mm3 (130-400); RED BLOOD COUNT 3.62 M/mm3 (4.10-5.30); REDCELL DISTRIBUTION WIDTH-CV 16.1 % (11.5-14.5)
[2019-03-27 10:15] LABS: HEMATOCRIT 32.7 % (37.0-47.0); HEMOGLOBIN 9.8 g/dl (12.5-16.0); MEAN CORPUSCULAR HEMOGLOBIN 27 pg (27.0-31.0)
--- NOTE | 2019-03-27 10:15 | NUR ---
Pt returned to EU 10 per cart s/p BMBx. Pt resting well, sister at bedside.
--- NOTE | 2019-03-27 11:40 | NUR ---
Pt has ambulated, voided and shelli PO intake s n/v. PIV removed with catheter intact.
--- NOTE | 2019-03-27 11:50 | NUR ---
Pt discharged per w/c by nurse with sister.
[2019-03-27 12:54] LABS: BAND 12 % (0-10); EOSINOPHIL 1 % (0-4); LYMPHOCYTE 21 % (20.0-51.0); METAMYELOCYTE 1 % (0-0); MYELOCYTE 1 % (0-0); NEUTROPHILS 54 % (42.0-75.2); PLATELET ESTIMATE NORMAL (NORMAL); TEAR DROP CELLS 1+
[2019-03-27 12:55] LABS: ANISOCYTOSIS 1+
== END 2019-03-27 12:05 | disposition home or self-care (01) ==
LOC: SDCO 07:56
PROVIDERS: Pathology Anatomic Pathology & Clinical Pathology
DX: D47.2 Monoclonal gammopathy (principal); D63.1 Anemia in chronic kidney disease; E78.00 Pure hypercholesterolemia, unspecified; E11.22 Type 2 diabetes mellitus with diabetic chronic kidney disease; I13.0 Hypertensive heart and chronic kidney disease with heart failure and stage 1 through stage 4 chronic kidney disease, or unspecified chronic kidney disease; I50.9 Heart failure, unspecified; N18.9 Chronic kidney disease, unspecified; J44.9 Chronic obstructive pulmonary disease, unspecified; G47.33 Obstructive sleep apnea (adult) (pediatric); E78.5 Hyperlipidemia, unspecified; M19.90 Unspecified osteoarthritis, unspecified site; G89.29 Other chronic pain; M54.9 Dorsalgia, unspecified; Z99.2 Dependence on renal dialysis; Z90.710 Acquired absence of both cervix and uterus; Z79.82 Long term (current) use of aspirin; Z79.4 Long term (current) use of insulin
CPT/HCPCS: J2704; J7030

== ENCOUNTER 2019-05-22 12:10 | Outpatient (CLI) | payer MEDICARE, OTHER ==
[2019-05-22] VITALS (7 sets, daily range): BP systolic 160–204; BP diastolic 72–102; PULSE 76–86; TEMP 98.3
[~2019-05-22] VITALS: Ht 162.7 cm; Wt 184.0 kg
[2019-05-22] MEDS ORDERED: TYLENOL 500MG500 MG PO (13:49)
[2019-05-22] MEDS ORDERED: AURYXIA1 GM PO (13:50)
--- NOTE | 2019-05-22 14:22 | NUR ---
SEE MERGE FOR MEDICATION ADMINISTRATION TIMES AND INTRA/POST PROCEDURE SEDATION ASSESSMENTS.
--- NOTE | 2019-05-22 14:56 | NUR ---
Report from Dandre MENESES. Pt alert and oriented, denies pain at this time. Left forearm site with bandaid CD&I. VSS at baseline
--- NOTE | 2019-05-22 16:09 | NUR ---
1000 mg Tylenol given po per pt request. INT discontinued intact. VSS baseline
--- NOTE | 2019-05-22 16:18 | NUR ---
Discharge instructions given. Transferred to private car by libby
== END 2019-05-22 16:21 | disposition home or self-care (01) ==
LOC: COL.CAR 12:10
DX: T82.818A Embolism due to vascular prosthetic devices, implants and grafts, initial encounter (principal); Z90.5 Acquired absence of kidney; Z90.722 Acquired absence of ovaries, bilateral; Z87.891 Personal history of nicotine dependence
CPT/HCPCS: J1644; J2250; J3010

== ENCOUNTER 2019-06-06 10:40 | Observation (INO) | payer MEDICARE ==
[~2019-06-06] VITALS: Ht 165.1 cm; Wt 147.6 kg
[2019-06-06] VITALS (171 sets, daily range): BP systolic 150–165; BP diastolic 63–94; PULSE 76–80; TEMP 98–98.4; O2SAT 89–100
[~2019-06-06 10:40] MED LIST changes: +AURYXIA1 GM PO; -PULMICORT0.5 MG/2 M IH; +PULMICORT180 MCG/Ac IH; +TYLENOL 500MG500 MG PO
--- NOTE | 2019-06-06 12:45 | NUR ---
Pt arrived via EMS, AAOx4, VSS, 100% on BiPap, pt wishes to try nasal cannula - pt tolerating 2LNC well with SpO2>98% with no dyspnea or use of accessory muscles. TDC to right chest site clean, dry, minor redness at insertion site, and sutures not intact. RAC IV CDI flushes without difficulty. Limb alert and fall alert bands attached. Pt's 2 daughters at bedside ([id number]) stating pt "looks a lot better than she did this morning". MD Mariano notified at 3098
[2019-06-06] MEDS ORDERED: BENADRYL25 M2 PO (14:04)
[2019-06-06 15:33] LABS: BASO % 0.3 % (0.0-2.0); EOS % 0.5 % (0-4.0); GRAN # 6.9 (1.4-6.5); GRAN % 77.9 % (42.2-75.2); LYMPH # 1.2 (1.2-3.4); LYMPH % 13.3 % (20.0-51.0); MEAN CELL VOLUME 95 fl (80.0-100.0); MEAN CORPUSCULAR HGB CONC 31 g/dl (33.0-37.0); MEAN PLATELET VOLUME 10.5 fl (7.4-10.4); MONO # 0.6 (0.1-0.6); MONO % 6.6 % (1.7-9.3); PLATELET COUNT 157 K/mm3 (130-400); RED BLOOD COUNT 2.99 M/mm3 (4.10-5.30); REDCELL DISTRIBUTION WIDTH-CV 16.2 % (11.5-14.5)
[2019-06-06 15:34] LABS: HEMATOCRIT 28.5 % (37.0-47.0); HEMOGLOBIN 8.7 g/dl (12.5-16.0); MEAN CORPUSCULAR HEMOGLOBIN 29 pg (27.0-31.0)
[2019-06-06 15:49] LABS: ALBUMIN 3.5 gm/dL (3.5-5.0); BILIRUBIN,TOTAL 0.3 mg/dL (0.0-1.0); CALCIUM 8.4 mg/dL (8.4-10.2); CREATININE, serum 4.41 (0.52-1.25); POTASSIUM 4.8 mmol/L (3.4-5.0); TOTAL PROTEIN 6.4 gm/dL (6.4-8.2)
[2019-06-06 15:58] LABS: PH 5 (5-8); SQUAMOUS EPITHELIAL None Seen /hpf; URINE APPEARANCE Clear; URINE BACTERIA None Seen /hpf; URINE BILIRUBIN Negative (NEGATIVE); URINE BLOOD 1+ (NEGATIVE); URINE COLOR Straw; URINE GLUCOSE 3+ (NEGATIVE); URINE KETONE Negative (NEGATIVE); URINE LEUKOCYTE ESTERASE Negative (NEGATIVE); URINE NITRATE Negative (NEGATIVE); URINE PROTEIN(semi-quant) 2+ (NEGATIVE); URINE UROBILINOGEN Negative (NEGATIVE)
[2019-06-06 16:11] LABS: COLLECTION METHOD CLEAN CATCH
[2019-06-07 00:12] VITALS: BP 141/68; PULSE 75; TEMP 98.1
[2019-06-07 04:18] VITALS: BP 146/70; PULSE 68
[2019-06-07 05:43] LABS: ARTERIAL BLD GAS O2 SATURATION 93.6 % (92-100); ARTERIAL BLOOD GAS BASE EXCESS -5.4 (-2-2); ARTERIAL BLOOD GAS HCO3 19.8 meq/L (22-26); ARTERIAL BLOOD GAS PCO2 37.8 mmHg (35-45); ARTERIAL BLOOD GAS PO2 73.3 mmHg (80-100); ARTERIAL BLOOD GAS pH 7.34 (7.35-7.45)
[2019-06-07 06:20] LABS: MEAN CELL VOLUME 95 fl (80.0-100.0); MEAN CORPUSCULAR HGB CONC 30 g/dl (33.0-37.0); PLATELET COUNT 166 K/mm3 (130-400); RED BLOOD COUNT 3.03 M/mm3 (4.10-5.30); REDCELL DISTRIBUTION WIDTH-CV 16.2 % (11.5-14.5)
[2019-06-07 06:23] LABS: HEMATOCRIT 28.9 % (37.0-47.0); HEMOGLOBIN 8.7 g/dl (12.5-16.0); MEAN CORPUSCULAR HEMOGLOBIN 29 pg (27.0-31.0)
[2019-06-07 06:33] LABS: ALBUMIN 3.5 gm/dL (3.5-5.0); BILIRUBIN,TOTAL 0.4 mg/dL (0.0-1.0); CALCIUM 8.6 mg/dL (8.4-10.2); CREATININE, serum 4.43 (0.52-1.25); POTASSIUM 4.8 mmol/L (3.4-5.0); TOTAL PROTEIN 6.3 gm/dL (6.4-8.2)
[2019-06-07 06:49] LABS: BAND 5 % (0-10); LYMPHOCYTE 10 % (20.0-51.0); METAMYELOCYTE 3 % (0-0); MYELOCYTE 1 % (0-0); NEUTROPHILS 81 % (42.0-75.2); OVALOCYTES 1+
[2019-06-07 06:50] LABS: PLATELET ESTIMATE NORMAL (NORMAL)
--- NOTE | 2019-06-07 07:15 | NUR ---
Report received from ZAIRA Ghotra.
--- NOTE | 2019-06-07 08:00 | NUR ---
Pt sitting up on side of bed eating breakfast. Denies any pain. States she is feeling better today. VSS. Discussed plan of care with pt r/t medications, dr el and plans for dialysis today. Pt verbalized understanding. CAll light in reach.
[2019-06-07 08:11] VITALS: BP 123/84; PULSE 104; TEMP 98.3
[2019-06-07 08:12] VITALS: BP 132/76; PULSE 77; TEMP 98.3
--- NOTE | 2019-06-07 08:50 | NUR ---
Echo done at bedside.
--- NOTE | 2019-06-07 10:47 | NUR ---
Initial visit; Patient thanked Certified Technician for looking in on her and offering God's blessings. Patient has received Holy Communion yesterday by [facility].
[2019-06-07 12:00] VITALS: BP 145/70; PULSE 81; TEMP 98.1
--- NOTE | 2019-06-07 12:15 | NUR ---
Pt transferred to [facility] room 16 for dialysis via wheelchair. Pt transferred to chair with standy by assist. Steady gait. Pt denies any pain at this time. Pt will eat lunch after dialysis. Blood sugar will be checked and insulin given when pt is ready for lunch tray.
--- NOTE | 2019-06-07 15:44 | NUR ---
INSPECTOR TYPE student met with the patient to discuss discharge plan. The patient lives alone in [place]. The patient has a walker, if needed and reports independence with ADLs. The patient's PCP is Dr. Vanegas and patient receives medications from [facility] with no difficulties, she has them delivered. The patient has advanced directives in the EMR. The patient will return home at discharge with one of her daughters, Neha providing transportation. There are no addtional needs at this time.
[2019-06-07] MEDS ORDERED: PREDNISONE20 MG PO (15:47)
--- NOTE | 2019-06-07 15:55 | NUR ---
Pt arrived back to ICU bed 3 from dialysis via wheelchair. Stand by assist back to bed. Pt sitting on side of bed. VSS. Pt lunch tray set up. Discussed discharge orders received with pt. Call light in reach.
[2019-06-07 16:00] VITALS: BP 125/60; PULSE 79; TEMP 97.8
--- NOTE | 2019-06-07 17:10 | NUR ---
Discussed discharge paperwork with pt. Explained discharge orders, medications, follow up appointment with Dr Vanegas and education with pt. Answered pt's questions to her satisfaction. Pt signed discharge paperwork.
--- NOTE | 2019-06-07 17:10 | NUR ---
Follow up appointment with Dr sena on Jun 13 at 1000.
--- NOTE | 2019-06-07 17:25 | NUR ---
Pt discharged from ICU bed 3. Pt left unit via wheelchair to private vehicle driven by daughter.
== END 2019-06-07 17:25 | disposition home or self-care (01) ==
LOC: ICU 10:40
PROVIDERS: ADMIT Student in an Organized Health Care Education/Training Program
DX: J96.22 Acute and chronic respiratory failure with hypercapnia (principal); J44.9 Chronic obstructive pulmonary disease, unspecified; G47.33 Obstructive sleep apnea (adult) (pediatric); I25.10 Atherosclerotic heart disease of native coronary artery without angina pectoris; I13.2 Hypertensive heart and chronic kidney disease with heart failure and with stage 5 chronic kidney disease, or end stage renal disease; E11.22 Type 2 diabetes mellitus with diabetic chronic kidney disease; N18.6 End stage renal disease; I50.30 Unspecified diastolic (congestive) heart failure; E78.5 Hyperlipidemia, unspecified; G89.29 Other chronic pain; M54.9 Dorsalgia, unspecified; E66.01 Morbid (severe) obesity due to excess calories; D63.1 Anemia in chronic kidney disease; D47.2 Monoclonal gammopathy; I08.1 Rheumatic disorders of both mitral and tricuspid valves; E21.3 Hyperparathyroidism, unspecified; Z79.4 Long term (current) use of insulin; Z90.5 Acquired absence of kidney; Z99.81 Dependence on supplemental oxygen; Z90.722 Acquired absence of ovaries, bilateral; Z87.891 Personal history of nicotine dependence
CPT/HCPCS: G0378; G0379; J1644; J1815; J2916; J2930; J7030; J7512; Q5105

== ENCOUNTER 2019-06-17 16:08 | Inpatient (IN) | payer MEDICARE ==
[~2019-06-17] VITALS: Ht 162.6 cm; Wt 152.0 kg
[~2019-06-17 16:08] MED LIST changes: +BENADRYL25 M2 PO
[2019-06-17] MEDS ORDERED: PREDNISONE20 MG PO (16:36)
[2019-06-17 17:19] LABS: HEMOGLOBIN 11.2 g/dl (12.5-16.0); MEAN CELL VOLUME 94 fl (80.0-100.0); MEAN CORPUSCULAR HEMOGLOBIN 29 pg (27.0-31.0); MEAN CORPUSCULAR HGB CONC 31 g/dl (33.0-37.0); MEAN PLATELET VOLUME 10.8 fl (7.4-10.4); PLATELET COUNT 165 K/mm3 (130-400); RED BLOOD COUNT 3.89 M/mm3 (4.10-5.30); REDCELL DISTRIBUTION WIDTH-CV 15.8 % (11.5-14.5)
[2019-06-17 17:22] LABS: HEMATOCRIT 36.7 % (37.0-47.0)
[2019-06-17 17:30] LABS: ALBUMIN 3.9 gm/dL (3.5-5.0); BILIRUBIN,TOTAL 0.8 mg/dL (0.0-1.0); CREATININE, serum 2.97 (0.52-1.25); POTASSIUM 4.1 mmol/L (3.4-5.0); TOTAL PROTEIN 7.2 gm/dL (6.4-8.2)
[2019-06-17 17:43] LABS: TROPONIN-I 0.036 ng/mL (0.000-0.035)
[2019-06-17 18:52] LABS: BAND 14 % (0-10); LYMPHOCYTE 7 % (20.0-51.0); NEUTROPHILS 77 % (42.0-75.2)
[2019-06-17 18:57] LABS: HEMOGLOBIN 10.3 g/dl (12.5-16.0); MEAN CELL VOLUME 93 fl (80.0-100.0); MEAN CORPUSCULAR HEMOGLOBIN 29 pg (27.0-31.0); MEAN CORPUSCULAR HGB CONC 31 g/dl (33.0-37.0); PLATELET COUNT 162 K/mm3 (130-400); RED BLOOD COUNT 3.62 M/mm3 (4.10-5.30); REDCELL DISTRIBUTION WIDTH-CV 15.7 % (11.5-14.5)
[2019-06-17 18:57] LABS: PLATELET ESTIMATE NORMAL (NORMAL); TOXIC GRANULATION PRESENT
[2019-06-17 18:58] LABS: ANISOCYTOSIS 1+; HYPOCHROMIA 3+
[2019-06-17 19:55] LABS: HEMATOCRIT 33.7 % (37.0-47.0)
[2019-06-17] MEDS ORDERED: CELEBREX 200MG200 MG PO (20:53)
[2019-06-17] MEDS ORDERED: NYSTATIN POWDER15 GM TOP (20:54)
[2019-06-17 22:06] LABS: BAND 17 % (0-10); LYMPHOCYTE 2 % (20.0-51.0); NEUTROPHILS 77 % (42.0-75.2); PLATELET ESTIMATE NORMAL (NORMAL)
[2019-06-17 22:08] LABS: ANISOCYTOSIS 1+; HYPOCHROMIA 3+
[2019-06-17 22:16] VITALS: BP 119/44; PULSE 81; TEMP 98.6
--- NOTE | 2019-06-18 00:45 | NUR ---
PT is resting peacefully in bed with her BiPap on and her eyes closed. PT shows no s/s of pain and no s/s of distress noted. Will continue to monitor.
[2019-06-18 04:25] VITALS: BP 107/57; PULSE 87; TEMP 98.7
--- NOTE | 2019-06-18 04:45 | NUR ---
PT resting peacefully in bed with BiPap on and no s/s of distress noted. PT opens eyes as this press writer enters room. PT denies needs/wants at this time. Will continue to monitor.
--- NOTE | 2019-06-18 07:02 | NUR ---
PT report given to Brandin MENESES. PT had an episode of A-Fib with RVR at 0642 reported from telemetry. Pt resting in bed with BiPap on. PT states that she is ready to come off BiPap and start her day so this creative writer removed the Bipap mask. PT has difficulty talking D/T her sore throat. PT resting peacefully with no s/s of distress. PT denies chest pain, chest pressure, palpitations, SOA, or trouble breathing.
[2019-06-18 07:42] VITALS: BP 146/64; PULSE 84; TEMP 98.5
--- NOTE | 2019-06-18 09:54 | NUR ---
Pt awake and alert upon entry this morning, has C/O sore throat and shoulder pain, tolerable at this time, shift assessments complete, left Pt call light in reach, bed in lowest position.
[2019-06-18 12:07] LABS: COLLECTION METHOD CLEAN CATCH
[2019-06-18 12:20] VITALS: BP 133/59; PULSE 84; TEMP 99.2
[2019-06-18 12:52] LABS: BUDDING YEAST Present /hpf; PH 5 (5-8); SQUAMOUS EPITHELIAL 20-50 /hpf; URINE APPEARANCE Turbid; URINE BACTERIA Occasional /hpf; URINE BILIRUBIN Negative (NEGATIVE); URINE BLOOD 2+ (NEGATIVE); URINE COLOR Amber; URINE GLUCOSE 2+ (NEGATIVE); URINE KETONE Negative (NEGATIVE); URINE LEUKOCYTE ESTERASE 2+ (NEGATIVE); URINE NITRATE Negative (NEGATIVE); URINE PROTEIN(semi-quant) 3+ (NEGATIVE); URINE RBC >50 /hpf; URINE UROBILINOGEN Negative (NEGATIVE)
[2019-06-18 16:03] VITALS: BP 139/56; PULSE 82; TEMP 98
--- NOTE | 2019-06-18 18:08 | NUR ---
Pt has been resting in the bed today, has been up to the bedside commode several times during the day, Pt is a 2+ assist to the commode, has had C/O of pain during the day in her shoulder and left hand, , Pt has not been eating well, blood glucose readings have been high, VS have remained stable.
[2019-06-18 19:59] VITALS: BP 132/62; PULSE 79; TEMP 98.2
[2019-06-18 23:24] VITALS: BP 116/56; PULSE 76; TEMP 98.4
[2019-06-19 04:17] VITALS: BP 128/57; PULSE 81; TEMP 98.3
--- NOTE | 2019-06-19 06:00 | NUR ---
Patient has been doing well most the night. She slept most the night. Had increased pain at the beginning of the shift but minimal complaints since getting dilauded. Assiste with keeping her left arm elevated and repositioned as needed for comfort. No complaints of nausea this shift. No other changes at this time. Call light within reach.
[2019-06-19 06:33] LABS: BASO % 0.1 % (0.0-2.0); EOS # 0.1 (0.0-0.7); EOS % 0.4 % (0-4.0); GRAN % 83.7 % (42.2-75.2); LYMPH # 1.4 (1.2-3.4); MEAN CELL VOLUME 96 fl (80.0-100.0); MEAN CORPUSCULAR HGB CONC 30 g/dl (33.0-37.0); MEAN PLATELET VOLUME 11.3 fl (7.4-10.4); MONO # 1.1 (0.1-0.6); MONO % 6.4 % (1.7-9.3); PLATELET COUNT 168 K/mm3 (130-400); RED BLOOD COUNT 3.09 M/mm3 (4.10-5.30); REDCELL DISTRIBUTION WIDTH-CV 16.3 % (11.5-14.5)
[2019-06-19 06:47] LABS: HEMATOCRIT 29.7 % (37.0-47.0); HEMOGLOBIN 8.9 g/dl (12.5-16.0); MEAN CORPUSCULAR HEMOGLOBIN 29 pg (27.0-31.0)
[2019-06-19 06:55] LABS: CALCIUM 8.7 mg/dL (8.4-10.2); CREATININE, serum 6.78 (0.52-1.25); PHOSPHOROUS 6.7 mg/dL (2.5-4.5); POTASSIUM 4.1 mmol/L (3.4-5.0)
[2019-06-19 07:28] VITALS: BP 140/58; PULSE 83; TEMP 97.8
--- NOTE | 2019-06-19 10:04 | NUR ---
REPORT WAS RECIEVED FROM FISH NET STRINGER ABOUT PATIENT. PATIENT GOT DILAUTID X1 THROUGHOUT THE FISH NET STRINGER. PATIENT IS ASLEEP IN BED AT REPORT BUT AWOKEN TO TELL HER MY NAME. DURING ASSESSMENT, NO COMPLAINS OF DIZZINESS, SHORTNESS OF BREATH, NAUSEA, OR VOMITING. TOOK MORNING PILLS WITHOUT DIFFICULTY. LEVIMIR WAS GIVEN TO PATIENT BUT NOT THE NOVOLOG DUE TO A BLOOD GLUCOSE OF 100. PATIENT IS NOW RESTING IN BED.
--- NOTE | 2019-06-19 10:45 | NUR ---
SW met with the patient to discuss discharge plan. The patient lives alone in [place]. She states that her daughter, Anjana Mary (ph#[phone]), lives across the [place] from her. She reports independence with ADLs and has a FWW, nocturnal oxygen, and a trilogy from [facility]. The patient's PCP is Dr. Raimundo Vanegas and she receives her medications at [facility]. She reports no diffulties obtaining her meds. The patient's advanced directives are in EMR. Her DPOA-HC is her daughter, Sophia, and the alternate is her other daughter, Kaden. The patient reports that she has some concerns about her mobility. LEANDRO to request for PT/OT to be ordered. LEANDRO to continue to follow.
--- NOTE | 2019-06-19 10:55 | NUR ---
REPOSITIONED PATIENT TO HER LEFT SIDE. PATIENT DENIED THE NEED FOR THE BATHROOM AT THIS TIME.
[2019-06-19 11:32] VITALS: BP 127/52; PULSE 78; TEMP 98.2
--- NOTE | 2019-06-19 15:30 | NUR ---
PATIENT IS IN DIALYSIS AT THIS TIME.
--- NOTE | 2019-06-19 16:45 | NUR ---
DIALYSIS NURSE CALLED AND GAVE THIS NURSE REPORT THAT THEY TOOK OFF 3200 ML OF FLUID DURING HER RUN. SHE WOULD LIKE TO HAVE A WEIGHT CHECK DONE, COULD BE IN THE AM. PATIENT WILL BE RETURNING BACK TO THE UNIT SOON.
--- NOTE | 2019-06-19 17:33 | NUR ---
PATIENT WENT TO DIALYSIS TODAY AND THEY REMOVED 3200 ML OF FLUIDS. DIALYSIS NURSE WOULD LIKE A WEIGHT RECHECK AT SOME POINT BETWEEN NOW AND THE AM. SHE HAS AN EXTERNAL FEMALE CATETHER IN PLACE TO HELP WITH INCONTINENCE. PATIENTS BLOOD GLUCOSE WAS 81 SO THIS NURSE IS NOT COMFORTABLE GIVING HER 32 UNITS OF INSULIN AT THIS TIME. PATIENT WAS GIVEN SOME ORANGE JUICE AND GRAGHM CRACKERS WITH PEANUT BUTTER TO HELP BEFORE DINNER ARRIVES. PATIENT WAS GIVEN FRESH WATER. PATIENT HAS NO OTHER COMPLAINTS AT THIS TIME AND CALL LIGHT WITHIN REACH.
--- NOTE | 2019-06-19 18:45 | NUR ---
PT report received from Von MENESES. PT is resting in bed peacefully with no s/s of distress noted. PT requests to be repositioned in bed which this designer/writer and von MENESES perform. PT states that she is having some pain in her legs and requests that she be given her IV dialudid with her evening medications. PT states she does not need medication immediately and would prefer to wait so that her pain is resolved when she tries to sleep later. Will continue to monitor.
[2019-06-19 19:49] VITALS: BP 141/59; PULSE 88; TEMP 99.3
--- NOTE | 2019-06-19 20:30 | NUR ---
PT presents in bed with tv on and resting peacefully. PT continues to require assistance for repositioning and states that she is uncomfortable turned to her left and requests to have huyen wremoved from under her rightside and repositioned to her back which this service writer advisor assisted with another staff member due to assist x2. PT is A&Ox4, is able to make and needs known, shows no s/s of distress. Call light is on her chest and bedside table is at her side. Will continue to monitor.
[2019-06-19 23:28] VITALS: BP 125/55; PULSE 89; TEMP 100.3
--- NOTE | 2019-06-20 02:49 | NUR ---
PT resting in bed peacefully with her eyes closed and wearing her home BiPap. No s.s of distress nor pain noted. Will continue to monitor.
[2019-06-20 03:05] VITALS: BP 137/50; PULSE 87; TEMP 100.2
[2019-06-20 06:39] LABS: BASO % 0.2 % (0.0-2.0); EOS # 0.1 (0.0-0.7); EOS % 0.4 % (0-4.0); GRAN # 14.2 (1.4-6.5); GRAN % 83.1 % (42.2-75.2); LYMPH # 1.3 (1.2-3.4); LYMPH % 7.6 % (20.0-51.0); MEAN CELL VOLUME 97 fl (80.0-100.0); MEAN CORPUSCULAR HGB CONC 30 g/dl (33.0-37.0); MEAN PLATELET VOLUME 10.9 fl (7.4-10.4); MONO # 1.3 (0.1-0.6); MONO % 7.8 % (1.7-9.3); PLATELET COUNT 187 K/mm3 (130-400); RED BLOOD COUNT 3.11 M/mm3 (4.10-5.30); REDCELL DISTRIBUTION WIDTH-CV 16.3 % (11.5-14.5)
--- NOTE | 2019-06-20 06:40 | NUR ---
PT resting in bed with eyes closed. When woken up for am meds PT denies wants/needs or pain at this time.
[2019-06-20 06:46] LABS: HEMATOCRIT 30.1 % (37.0-47.0); HEMOGLOBIN 8.9 g/dl (12.5-16.0); MEAN CORPUSCULAR HEMOGLOBIN 29 pg (27.0-31.0)
[2019-06-20 06:50] LABS: ALBUMIN 3.1 gm/dL (3.5-5.0); CALCIUM 8.8 mg/dL (8.4-10.2); CREATININE, serum 5.76 (0.52-1.25); PHOSPHOROUS 5.9 mg/dL (2.5-4.5); POTASSIUM 4.4 mmol/L (3.4-5.0)
[2019-06-20 07:15] VITALS: BP 126/59; PULSE 85; TEMP 97.9
[2019-06-20 16:22] VITALS: BP 129/63; PULSE 91; TEMP 97.8
--- NOTE | 2019-06-20 16:32 | NUR ---
SW met with the patient to present Medicare.gov's list of SNFs in the patient's geographical location. The patient's first choice is [facility], second choice is [facility], and third choice [facility]. Referrals sent. Awaiting responses.
--- NOTE | 2019-06-20 19:15 | NUR ---
Received report from Haleigh. Seen patient awake, sitting on bed. She is alert and oriented. States she has some pain on her right leg and shoulder but a bit tolerable. She has INT on her right forearm. With dialysis catheter on right chest and fistula on left forearm.
--- NOTE | 2019-06-20 19:58 | NUR ---
PT WENT TO DIALYSIS AND TOOK 3300MLS OFF, PT STATED HAD LEG CRAMPING AND WAS UNABLE TO TOLERATE ANYMORE. THIS NURSE HELP PTS NOVOLOG THIS SHIFT DUE TO BLOOD SUGAR LEVELS BEING AROUND 100'S ADMINISTERED LEVIEMR, DID INFORM PROVIDER ABOUT THIS THIS AM. HAS NEEDED PAIN MEDS TODAY AND ADMINISTERED, DUE TO RT SHOULDER PAIN AND CONTINUED PAIN IN THERT LEG WELL.
[2019-06-20 22:04] VITALS: BP 135/59; PULSE 99; TEMP 98.4
--- NOTE | 2019-06-20 23:00 | NUR ---
Changed patient's brief and underpad. Applied external catheter. Repositioned patient as well.
[2019-06-21 03:29] VITALS: BP 133/56; PULSE 87; TEMP 99.9
--- NOTE | 2019-06-21 03:30 | NUR ---
Patient complains of pain on her sholuder with pain score of 8/10. Dilaudid PRN given.
[2019-06-21 07:01] LABS: MEAN CELL VOLUME 97 fl (80.0-100.0); MEAN CORPUSCULAR HGB CONC 29 g/dl (33.0-37.0); MEAN PLATELET VOLUME 10.6 fl (7.4-10.4); PLATELET COUNT 217 K/mm3 (130-400); RED BLOOD COUNT 3.25 M/mm3 (4.10-5.30); REDCELL DISTRIBUTION WIDTH-CV 16.5 % (11.5-14.5)
[2019-06-21 07:12] LABS: HEMATOCRIT 31.4 % (37.0-47.0); HEMOGLOBIN 9.1 g/dl (12.5-16.0); MEAN CORPUSCULAR HEMOGLOBIN 28 pg (27.0-31.0)
[2019-06-21 07:14] LABS: ALBUMIN 3.4 gm/dL (3.5-5.0); CALCIUM 9.2 mg/dL (8.4-10.2); PHOSPHOROUS 8.1 mg/dL (2.5-4.5); POTASSIUM 4.8 mmol/L (3.4-5.0)
--- NOTE | 2019-06-21 07:16 | NUR ---
Endorsed patient to [facility]. Patient still on trilogy machine. Repositioned patient. Still complains of right shoulder pain.
[2019-06-21 07:20] LABS: CREATININE, serum 5.77 (0.52-1.25)
[2019-06-21 07:26] VITALS: BP 148/68; PULSE 96; TEMP 98.5
--- NOTE | 2019-06-21 07:30 | NUR ---
Assessment completed as charted. Patient found sleeping in bed with Trilogy on and on 2 liters of oxygen. Patient on room air while awake and oxygen saturation is 95 percent. Telemetry on. Dialysis catheter in right subclavian covered my gauze. No bleeding or redness at site. INT in right atecubital, no bleeding or redness at site. Edema and weakness in right upper extremity. Bilateral 2+ pitting edema in lower extremities. Dry skin on bilaterally on upper and lower extremities.atient rates pain in right shoulder and both legs as 4/10. Patient states that she has been feeling really stiff lately.
[2019-06-21 08:03] LABS: ANISOCYTOSIS 1+; BAND 7 % (0-10); LYMPHOCYTE 7 % (20.0-51.0); METAMYELOCYTE 2 % (0-0); NEUTROPHILS 74 % (42.0-75.2); PLATELET ESTIMATE NORMAL (NORMAL)
[2019-06-21 08:04] LABS: HYPOCHROMIA 2+; OVALOCYTES 1+; TEAR DROP CELLS 1+
--- NOTE | 2019-06-21 08:43 | NUR ---
SHIFT REPORT RECEIVED FROM DENYS CAMPAIGN DIRECTOR RN. PT AWAKE, RESTING IN BED WITH LEFT ARM PROPPED ON PILLOWS TO RELIEVE SHOULDER PAIN. PT STATES A PAIN LEVEL OF 3 IN LEFT SHOULDER AND RIGHT LEG, WHICH IS TOLERABLE FOR HER. SHE DOES NOT WANT ANY PAIN MEDS AT THIS TIME. NEWLY CREATED L WRIST FISTULA PALPATED AND ASCULTATED; NO COMPLICATIONS. SKIN ASSESSMENT REVEALED GENERALIZED SCABS ON EXTREMITIES DUE TO CHRONIC PSORIASIS. PLEASE REVIEW SHIFT ASSESSMENT; NO CONCERNS AT THIS MOMENT.
--- NOTE | 2019-06-21 09:42 | NUR ---
Vi, at [facility], reports that they are unable to accept the patient. SW awaiting [facility] and [facility] screen. SW to update the patient.
[2019-06-21 11:20] VITALS: BP 147/71; PULSE 100; TEMP 97.8
[2019-06-21 12:59] LABS: COLLECTION METHOD CLEAN CATCH
[2019-06-21 13:10] LABS: BUDDING YEAST Present /hpf; MUCOUS Present /lpf; PH 5 (5-8); URINE APPEARANCE Cloudy; URINE BACTERIA Rare /hpf; URINE BILIRUBIN Negative (NEGATIVE); URINE BLOOD Negative (NEGATIVE); URINE COLOR Amber; URINE GLUCOSE Negative (NEGATIVE); URINE KETONE Negative (NEGATIVE); URINE LEUKOCYTE ESTERASE Negative (NEGATIVE); URINE NITRATE Negative (NEGATIVE); URINE PROTEIN(semi-quant) Negative (NEGATIVE); URINE RBC None Seen /hpf; URINE UROBILINOGEN Negative (NEGATIVE)
--- NOTE | 2019-06-21 15:52 | NUR ---
Pt has been resting throughout the day; Physical therapy session this afternoon involved dangling on edge of bed, standing and lef lifts on edge of bed. Pt preferred to eat lunch sitting on the side of bed. Pt has tolerated movement well today, stating a tolerable pain level of 3. No further concerns noted.
[2019-06-21 16:32] VITALS: BP 139/62; PULSE 79; TEMP 98.2
--- NOTE | 2019-06-21 18:50 | NUR ---
PT report given at bedside by Beatriz MENESES. PT is resting in bed peacefully at this time with no s/s of distress and no wants/needs. Will continue to monitor.
--- NOTE | 2019-06-21 20:02 | NUR ---
PT reports that she did not like dinner and is noted to have not eaten anything. PT offered snacks or that this health underwriter would check for a sandwich but PT refuses stating that she will just wait for her HS meds and go to sleep. Will continue to monitor.
--- NOTE | 2019-06-21 20:45 | NUR ---
PT presents in bed with SCD in place and TV on. PT recognizes this engineering writer from previous shifts and smiles and returns greeting saying "well it looks like I am still here!" PT appears to be in positive sprits with no s/s of distress noted. PT requires assistance for repositioning and this engineering writer and other staff turn PT to her leftside with a pillow under her rightside of trunk. PT asks about her pain medication and is concerned that she will not be able to get the relief she needs to sleep well. Education provided on ordered medication of Ultram and APAP, as well as Trazodone PRN. PT states that she periodically takes Trtazodone at home and after talking to this engineering writer PT decided that she will take a PRN dose at HS to help her sleep. PT call light is within reach and prior to this engineering writer leaving room makes sure that her bedside table with her glasses, phone and beverage are within reach. Will continue to monitor.
[2019-06-21 20:52] VITALS: BP 143/68; PULSE 88; TEMP 98.7
[2019-06-22 00:09] VITALS: BP 142/58; PULSE 85; TEMP 99
--- NOTE | 2019-06-22 01:43 | NUR ---
PT is noted to be resting peacefully in bed with her eyes closed and wearing Bi-Pap with no s/s of distress noted. Will contine to monitor.
[2019-06-22 04:13] VITALS: BP 149/64; PULSE 91; TEMP 97.9
--- NOTE | 2019-06-22 04:16 | NUR ---
PT remains in bed with eyes closed and wearing her home Bi-Pap with no s/s of distress noted. Will continue to monitor.
--- NOTE | 2019-06-22 06:12 | NUR ---
PT easily aroused for AM meds. PT mary lou ordered Protonix and this casualty underwriter helped PT put her home BiPapa mask back on and PT closed eyes and was resting peacefully with no s/s of distress as this casualty underwriter left room. Will continue to monitor.
[2019-06-22 07:28] VITALS: BP 153/73; PULSE 90; TEMP 98.3
[2019-06-22 08:09] LABS: MEAN CELL VOLUME 96 fl (80.0-100.0); MEAN CORPUSCULAR HGB CONC 29 g/dl (33.0-37.0); MEAN PLATELET VOLUME 10.7 fl (7.4-10.4); PLATELET COUNT 219 K/mm3 (130-400); RED BLOOD COUNT 3.05 M/mm3 (4.10-5.30); REDCELL DISTRIBUTION WIDTH-CV 16.7 % (11.5-14.5)
[2019-06-22 08:14] LABS: HEMATOCRIT 29.4 % (37.0-47.0); HEMOGLOBIN 8.6 g/dl (12.5-16.0); MEAN CORPUSCULAR HEMOGLOBIN 28 pg (27.0-31.0)
[2019-06-22 08:19] LABS: ALBUMIN 3.3 gm/dL (3.5-5.0); CALCIUM 8.9 mg/dL (8.4-10.2); POTASSIUM 4.9 mmol/L (3.4-5.0)
[2019-06-22 08:25] LABS: CREATININE, serum 7.01 (0.52-1.25); PHOSPHOROUS 10.6 mg/dL (2.5-4.5)
[2019-06-22 08:54] LABS: ANISOCYTOSIS 1+; BAND 20 % (0-10); EOSINOPHIL 1 % (0-4); LYMPHOCYTE 12 % (20.0-51.0); NEUTROPHILS 58 % (42.0-75.2); PLATELET ESTIMATE NORMAL (NORMAL)
--- NOTE | 2019-06-22 09:29 | NUR ---
Pt sitting up in the recliner upon entry, no C/O pain at this time, shift assessments complete, left Pt call light in reach.
--- NOTE | 2019-06-22 13:52 | NUR ---
Patient is currently at [facility]. Reported off with Primary Nurse,
--- NOTE | 2019-06-22 13:54 | NUR ---
Primary nurse was assisted with [phone] [facility] AD[facility] student Liz Davis and [facility] instructor Elida Fox RN-.
--- NOTE | 2019-06-22 15:34 | NUR ---
LEANDRO met with the patient to update on status of referrals. The patient reports that she has been getting letters from Medicaid and is unsure if she has been approved for it or not. LEANDRO consulted Financial Counselor, Sina. Adam, at [facility], reports that they are awaiting approval from the patient's insurance ([facility] LEANDRO then received a phone call from Nakia at [facility]. Nakai reports that their physician is still reviewing the request. Nakia requests that LEANDRO fax updated notes to her tomorrow morning. . Reference#[id number]. LEANDRO faxed updates to Adam at [facility]. LEANDRO to continue to follow.
[2019-06-22 16:11] VITALS: BP 140/64; PULSE 106; TEMP 98.2
--- NOTE | 2019-06-22 18:28 | NUR ---
Pt resting in the room since returning this afternoon from dialysis, reported 3,000ml removed during, no other issues noted today, VS have remained stable.
--- NOTE | 2019-06-22 19:00 | NUR ---
PT report received from Brandin MENESES at bedside. PT is resting in bed with TV on and denies needs/wants at this time. PT shows no s/s of distress and is noted to be wearing SCDs to bilat L.E. PT has call light on her chest and bedside table at her side with beverage and her phone within reach. Will continue to monitor.
[2019-06-22 19:35] VITALS: BP 146/77; PULSE 105; TEMP 100
--- NOTE | 2019-06-22 20:00 | NUR ---
PT request to be repositioned at this time and is turned to her leftside. Pt states that she is "doing ok" and has no other wants/needs at this time. PT call light placed within reach after repositioning. PT is A&Ox4 and states that after receiving her HS meds she would like to have her home Bi-Pap put on so she can go to sleep for the night. Will continue to monitor.
--- NOTE | 2019-06-22 23:22 | NUR ---
PT resting in bed peacefully with eyes closed and Bi-Pap in place. PT is noted to have call light within reach and opens her eyes when this technical writer enters room. PT request that she be repositioned higher up in bed and this technical writer and Roxie MENESES reposition PT. This technical writer notices that PT is now lying on her back and PT reports that she had asked PLATE GLASS GRINDER to remove the pillows under her rightside when PLATE GLASS GRINDER made last rounds about half hour ago. No s/s of distress noted. Will continue to monitor.
[2019-06-22 23:46] VITALS: BP 135/61; PULSE 100; TEMP 97.7
[2019-06-23 04:29] VITALS: BP 137/67; PULSE 94; TEMP 98.4
[2019-06-23 06:28] LABS: MEAN CELL VOLUME 96 fl (80.0-100.0); MEAN CORPUSCULAR HGB CONC 29 g/dl (33.0-37.0); MEAN PLATELET VOLUME 10.7 fl (7.4-10.4); PLATELET COUNT 244 K/mm3 (130-400); RED BLOOD COUNT 3.27 M/mm3 (4.10-5.30); REDCELL DISTRIBUTION WIDTH-CV 16.5 % (11.5-14.5)
[2019-06-23 06:37] LABS: ALBUMIN 3.3 gm/dL (3.5-5.0); CALCIUM 8.9 mg/dL (8.4-10.2); PHOSPHOROUS 8.8 mg/dL (2.5-4.5); POTASSIUM 4.6 mmol/L (3.4-5.0)
[2019-06-23 06:41] LABS: HEMATOCRIT 31.3 % (37.0-47.0); HEMOGLOBIN 9.1 g/dl (12.5-16.0); MEAN CORPUSCULAR HEMOGLOBIN 28 pg (27.0-31.0)
[2019-06-23 06:42] LABS: CREATININE, serum 5.13 (0.52-1.25)
[2019-06-23 07:20] VITALS: BP 148/76; PULSE 96; TEMP 98
--- NOTE | 2019-06-23 07:50 | NUR ---
PT report given to Brandin MENESES at bedside. PT has been resting peacefully throughout the night and was easily aroused for 0400 VS. PT has no s/s of distress noted.
[2019-06-23 08:01] LABS: ANISOCYTOSIS 1+; BAND 14 % (0-10); HYPOCHROMIA 2+; LYMPHOCYTE 10 % (20.0-51.0); METAMYELOCYTE 1 % (0-0); NEUTROPHILS 71 % (42.0-75.2); NUCLEATED RED BLOOD CELL 1 (0-6); OVALOCYTES 1+
--- NOTE | 2019-06-23 08:57 | NUR ---
Pt awake and alert upon entry, no C/O pain at this time, shift assessment complete, left Pt call light in reach bed in lowest position.
--- NOTE | 2019-06-23 09:11 | NUR ---
LEANDRO faxed updates to Nakia at [facility].
[2019-06-23 11:50] VITALS: BP 154/81; PULSE 103; TEMP 97.8
[2019-06-23] MEDS ORDERED: AMOXICILLIN/CLA1 TA1 PO (13:51)
[2019-06-23] MEDS ORDERED: TOPROL XL 50MG50 MG PO (13:52)
--- NOTE | 2019-06-23 14:03 | NUR ---
Reported off to Primary Nurse
--- NOTE | 2019-06-23 14:06 | NUR ---
Primary nurse was assisted with [phone] patient care by [employer] [employer] student Liz Davis and [facility] instructor Elida Fox RN-.
--- NOTE | 2019-06-23 14:51 | NUR ---
Nakia, at [facility], contacted LEANDRO to inform that they have approved the patient's stay at [facility]. Adam, at [facility], then contacted SW to inform they received approval and are able to accept. LEANDRO informed the patient and she is agreeable to [facility]. The patient is to discharge today, 06/23, to [facility] for a skilled stay. Transportation was scheduled at 1530, via AV. LEANDRO informed the patient's RN. The patient's RN informed the patient. The patient requested that LEANDRO contact and inform her daughter, Neha. LEANDRO attempted to contact Neha. LEANDRO left her a voicemail. LEANDRO also presented and explained the IM form the patient. The patient verbalized understanding, signed, and she was provided a copy. No additional needs at this time.
--- NOTE | 2019-06-23 15:35 | NUR ---
Pt transferred to [facility], Pt picked up by their transportation department and transported.
== END 2019-06-23 15:35 | DRG 314 ==
LOC: COL.ER 16:08 → MEDICAL 19:13
PROVIDERS: Family Medicine; ADMIT Internal Medicine Nephrology
PROC: 5A1D70Z Performance of Urinary Filtration, Intermittent, Less than 6 Hours Per Day (ICD-10-PCS; principal; 2019-06-19)
DX: I95.9 Hypotension, unspecified (principal); N18.6 End stage renal disease; I12.0 Hypertensive chronic kidney disease with stage 5 chronic kidney disease or end stage renal disease; J96.12 Chronic respiratory failure with hypercapnia; J96.11 Chronic respiratory failure with hypoxia; I50.32 Chronic diastolic (congestive) heart failure; J44.9 Chronic obstructive pulmonary disease, unspecified; D63.1 Anemia in chronic kidney disease; E11.22 Type 2 diabetes mellitus with diabetic chronic kidney disease; J20.9 Acute bronchitis, unspecified; K21.9 Gastro-esophageal reflux disease without esophagitis; G89.29 Other chronic pain; M79.642 Pain in left hand; G47.33 Obstructive sleep apnea (adult) (pediatric); E78.5 Hyperlipidemia, unspecified; M54.9 Dorsalgia, unspecified; L40.9 Psoriasis, unspecified; E66.01 Morbid (severe) obesity due to excess calories; E86.0 Dehydration; R53.81 Other malaise; Z79.4 Long term (current) use of insulin; Z99.2 Dependence on renal dialysis; Z90.5 Acquired absence of kidney; Z85.528 Personal history of other malignant neoplasm of kidney; Z87.891 Personal history of nicotine dependence
CPT/HCPCS: G0378; J1170; J1200; J1644; J1815; J2916; J3010; J7030; Q5105

== ENCOUNTER 2019-06-26 00:24 | Day surgery (SDC) | payer MEDICARE ==
[2019-06-26] VITALS (13 sets, daily range): BP systolic 104–146; BP diastolic 51–81; PULSE 72–77; TEMP 99
[~2019-06-26] VITALS: Ht 162.6 cm; Wt 145.5 kg
[~2019-06-26 00:24] MED LIST changes: +AMOXICILLIN/CLA1 TA1 PO; +CELEBREX 200MG200 MG PO; +NYSTATIN POWDER15 GM TOP
[2019-06-26 00:47] LABS: MEAN CELL VOLUME 95 fl (80.0-100.0); MEAN CORPUSCULAR HGB CONC 30 g/dl (33.0-37.0); MEAN PLATELET VOLUME 10.4 fl (7.4-10.4); PLATELET COUNT 307 K/mm3 (130-400); PROTHROMBIN TIME 12.2 SECONDS (9.7-12.8); RED BLOOD COUNT 3.39 M/mm3 (4.10-5.30); REDCELL DISTRIBUTION WIDTH-CV 16.1 % (11.5-14.5)
[2019-06-26 00:49] LABS: HEMATOCRIT 32.3 % (37.0-47.0); HEMOGLOBIN 9.6 g/dl (12.5-16.0); MEAN CORPUSCULAR HEMOGLOBIN 28 pg (27.0-31.0)
[2019-06-26 00:53] LABS: ALBUMIN 3.3 gm/dL (3.5-5.0); BILIRUBIN,TOTAL 0.7 mg/dL (0.0-1.0); CALCIUM 8.4 mg/dL (8.4-10.2); CREATININE, serum 5.31 (0.52-1.25)
[2019-06-26 01:06] LABS: TROPONIN-I 0.079 ng/mL (0.000-0.035)
[2019-06-26 01:35] LABS: ANISOCYTOSIS 1+; BAND 14 % (0-10); EOSINOPHIL 2 % (0-4); HYPOCHROMIA 2+; LYMPHOCYTE 9 % (20.0-51.0); METAMYELOCYTE 3 % (0-0); NEUTROPHILS 63 % (42.0-75.2); PLATELET ESTIMATE NORMAL (NORMAL)
[2019-06-26 01:36] LABS: OVALOCYTES 1+
[2019-06-26 01:37] LABS: SPHEROCYTE 1+
--- NOTE | 2019-06-26 14:39 | NUR ---
SEE MERGE DOCUMENTATION FOR MEDICATION ADMINISTRATION TIMES AND INTRA/POST PROCEDURE SEDATION ASSESSMENTS. POSITIVE BARBEAU.
[2019-06-26] MEDS ORDERED: IMDUR 30MG30 MG/TAB PO (15:18)
[2019-06-26] MEDS ORDERED: ASPIRIN 81M81 MG/TA2 PO (15:18)
--- NOTE | 2019-06-26 15:26 | NUR ---
Pt to express from cardiac catheterization technologist accompanied by sister and daughter. pt is awake and alert, p,w,d, with reg and unlabored resps. TR band to rt wrist looks good, no bleeding or hematoma, 12 cc in band, band is lined up appropriately, cms is intact. wctm.pt aware of poc.
--- NOTE | 2019-06-26 21:10 | NUR ---
Pt escorted to visitor entrance in wheelchair where she is met by transport from [facility]. dc instructions in hand. pt has done well during recovery... she was able to get up to bs commode 2 x during her recovery with assist x 1. She did have some dinner. Air was removed gradually from band with the air removed from band at 1845. pt was monitored after removing band until time of departure at 2109. site continued to look good without bleeding or hematoma. dressed with a bandaid. Pt did sleep well for several hours after band was removed. report was called to Gemini RN and Evie RN at [facility] at 2036. pt verbalized understanding of dc/rx instructions, she will use splint to help prevent using rt arm too much overnight. her IV to was dc'd with cath intact, dressing applied.
== END 2019-06-26 21:10 | disposition home or self-care (01) ==
LOC: COL.ER 00:24 → COL.CAR 09:26
PROVIDERS: Emergency Medicine
DX: I20.9 Angina pectoris, unspecified (principal); I13.2 Hypertensive heart and chronic kidney disease with heart failure and with stage 5 chronic kidney disease, or end stage renal disease; I50.30 Unspecified diastolic (congestive) heart failure; N18.6 End stage renal disease; D63.1 Anemia in chronic kidney disease; Z99.2 Dependence on renal dialysis; G47.33 Obstructive sleep apnea (adult) (pediatric); E11.22 Type 2 diabetes mellitus with diabetic chronic kidney disease; Z79.4 Long term (current) use of insulin; E78.5 Hyperlipidemia, unspecified; J44.9 Chronic obstructive pulmonary disease, unspecified; J96.10 Chronic respiratory failure, unspecified whether with hypoxia or hypercapnia; L40.9 Psoriasis, unspecified; E66.01 Morbid (severe) obesity due to excess calories; Z87.891 Personal history of nicotine dependence; Z79.899 Other long term (current) drug therapy; N18.9 Chronic kidney disease, unspecified; Z90.5 Acquired absence of kidney; G89.29 Other chronic pain; M54.9 Dorsalgia, unspecified; D47.2 Monoclonal gammopathy; I27.20 Pulmonary hypertension, unspecified
CPT/HCPCS: A9540; A9567; J1644; J1940; J2250; J2270; J2405; J3010; Q9967

== ENCOUNTER → 2019-08-22 | Outpatient (CLI) | payer MEDICARE ==
[~2019-08-22] MED LIST changes: +IMDUR 30MG30 MG/TAB PO
== END ==
LOC: ZCOL.LAB 15:01
DX: Z11.59 Encounter for screening for other viral diseases (principal); N18.6 End stage renal disease

== ENCOUNTER → 2019-10-06 | Outpatient (CLI) | payer MEDICARE ==
[~2019-10-06] MED LIST changes: +ASPIRIN E.C. 8181 MG PO; +D3-5050000 IU PO; +FERRO-TIME325 MG PO; +NYSTATIN CREAM15 GM TP; +TOPICORT CREAM15 GM TP
== END ==
LOC: COL.LAB 08:00 → COL.RAD 10-11 12:00
DX: Z20.828 Contact with and (suspected) exposure to other viral communicable diseases (principal)

== ENCOUNTER 2019-10-07 07:50 | Inpatient (IN) | payer MEDICARE ==
[~2019-10-07] VITALS: Ht 160 cm; Wt 138.0 kg
[~2019-10-07 07:50] MED LIST changes: -NYSTATIN CREAM15 GM TP; -TOPICORT CREAM15 GM TP
[2019-10-07 08:37] LABS: BASO % 0.2 % (0.0-2.0); EOS # 0.1 (0.0-0.7); EOS % 1.2 % (0-4.0); GRAN # 7.1 (1.4-6.5); GRAN % 78.8 % (42.2-75.2); HEMATOCRIT 37.8 % (37.0-47.0); HEMOGLOBIN 11.3 g/dl (12.5-16.0); LYMPH # 1.2 (1.2-3.4); LYMPH % 13.7 % (20.0-51.0); MEAN CELL VOLUME 94 fl (80.0-100.0); MEAN CORPUSCULAR HEMOGLOBIN 28 pg (27.0-31.0); MEAN CORPUSCULAR HGB CONC 30 g/dl (33.0-37.0); MEAN PLATELET VOLUME 10.3 fl (7.4-10.4); MONO # 0.5 (0.1-0.6); MONO % 5.7 % (1.7-9.3); PLATELET COUNT 162 K/mm3 (130-400); RED BLOOD COUNT 4.04 M/mm3 (4.10-5.30); REDCELL DISTRIBUTION WIDTH-CV 14.6 % (11.5-14.5)
[2019-10-07 08:45] LABS: ALBUMIN 3.8 gm/dL (3.5-5.0); BILIRUBIN,TOTAL 0.6 mg/dL (0.0-1.0); CREATININE, serum 5.13 (0.52-1.25); MAGNESIUM 1.4 mg/dL (1.6-2.3); PHOSPHOROUS 7.4 mg/dL (2.5-4.5); POTASSIUM 5.2 mmol/L (3.4-5.0)
[2019-10-07 09:04] LABS: TROPONIN-I 0.042 ng/mL (0.000-0.035)
[2019-10-07] MEDS ORDERED: TOPICORT CREAM15 GM TP (11:29)
[2019-10-07] MEDS ORDERED: NYSTATIN CREAM15 GM TP (11:30)
--- NOTE | 2019-10-07 17:16 | NUR ---
PATIENT ASSESSMENT COMPLETED. SHE C/O RIGHT HIP PAIN AND HEADACHE. PRN MEDICATIONS WILL BE GIVEN.
[2019-10-07 17:32] VITALS: BP 153/96; PULSE 88; TEMP 98.4
[2019-10-07 21:06] VITALS: BP 150/63; PULSE 83; TEMP 97.5
[2019-10-07 23:55] VITALS: BP 136/44; PULSE 65; TEMP 98.6
[2019-10-08 05:14] VITALS: BP 129/42; PULSE 65; TEMP 98.7
--- NOTE | 2019-10-08 06:10 | NUR ---
PATIENT HAD A GOOD NIGHT. SHE TOOK HER HS PILLS WITH NO PROBLEMS AND WORE HER TRIOLOGY TO SLEPT. SHE WAS ALERT AND ORIENTATED. CLEAR BUT DIMINISHED BREATH SOUNDS. PATIENT DID NOT URINATE THROUGH THE SHIFT. DENIES ANY NEEDS AT THIS TIME. WILL REPORT OFF TO DAY SHIFT.
--- NOTE | 2019-10-08 08:14 | NUR ---
PATIENT ASSESSMENT COMPLETED SHE HAS A HEADACHE STARTING ABOVE THE RIGHT EYE. PRN TYLENOL GIVEN. NO OTHER NEEDS AT THIS TIME.
[2019-10-08 08:21] VITALS: BP 139/56; PULSE 95; TEMP 98.1
[2019-10-08 12:27] VITALS: BP 140/66; PULSE 64; TEMP 98.1
--- NOTE | 2019-10-08 14:26 | NUR ---
NOTIFIED RADIOLGY MANAGER CATH LAB ABOUT NEW ORDER FOR TUNNELED DIALYSIS CVC REMOVAL. SHE WAS ABLE TO NOTIFIED DR. PATEL ABOUT THIS CONSULT VIA TEXT. PUBLIC OPINION SURVEY TAKER YONY IS NOTIFIED ALSO. I ALSO HAVE MADE A HANDWRITTEN NOTE TO FOLLOW UP IN THE MORNING TO MAKE SURE ISOTOPE TECHNICIAN IS AWARE OF THE ORDER
[2019-10-08 16:42] VITALS: BP 153/60; PULSE 66; TEMP 97.7
--- NOTE | 2019-10-08 18:12 | NUR ---
PATIENT UP IN CHAIR. SHE DENIES PAIN OR OTHER NEEDS AT THIS TIME. MOVES AROUND THE ROOM INDEPENDENTLY
--- NOTE | 2019-10-08 18:55 | NUR ---
Pt REPORT RECEIVED FROM INO MENESES AT BEDSIDE. Pt IS IN RECLINER WATCHING TV PEACEFULLY WITH CALL LIGHT WITHIN REACH. WILL CONTINUE TO MONITOR.
[2019-10-08 19:27] VITALS: BP 129/53; PULSE 68; TEMP 97.9
[2019-10-08 23:22] VITALS: BP 125/56; PULSE 61; TEMP 98.9
--- NOTE | 2019-10-09 02:07 | NUR ---
Pt spent most of the evening sitting in her recliner and entertaining herself with the television and her personal entertainment items. At HS Pt moved to her bed and notified this chief writer that she needed assistance with her CPAP. When this chief writer entered room Pt was noted to be wearing CPAP with oxygen noted to be bleeding into the mask. Pt asks "did I do it right?" to which this chief writer replies "yes ma'am it's perfect." Pt has been resting in bed with eyes closed since this time with no s/s of distress noted. Pt consent was reviewed and signed for the removal of her tunneled dialysis catheter in the morning with Pt stating that she is aware of the procedure and has no questions at this time. Pt remains in stable condition with no s/s of distress noted with call light within reach. Will continue to monitor.
[2019-10-09 03:28] VITALS: BP 126/36; PULSE 63; TEMP 98.4
--- NOTE | 2019-10-09 04:45 | NUR ---
Pt HAS REFUSED USE OF HER SCDs THIS SHIFT
--- NOTE | 2019-10-09 06:29 | NUR ---
Pt resting in bed with eyes open and no s/s of distress noted. Call light within reach and no s/s of distress noted. Will give bedside report to dayshift RN.
[2019-10-09 07:09] LABS: BASO % 0.5 % (0.0-2.0); EOS # 0.1 (0.0-0.7); GRAN # 5.2 (1.4-6.5); GRAN % 60.3 % (42.2-75.2); HEMATOCRIT 37.1 % (37.0-47.0); HEMOGLOBIN 10.9 g/dl (12.5-16.0); LYMPH # 2.3 (1.2-3.4); LYMPH % 26.4 % (20.0-51.0); MEAN CELL VOLUME 95 fl (80.0-100.0); MEAN CORPUSCULAR HEMOGLOBIN 28 pg (27.0-31.0); MEAN CORPUSCULAR HGB CONC 29 g/dl (33.0-37.0); MEAN PLATELET VOLUME 10.5 fl (7.4-10.4); MONO # 0.9 (0.1-0.6); MONO % 10.9 % (1.7-9.3); PLATELET COUNT 198 K/mm3 (130-400); RED BLOOD COUNT 3.91 M/mm3 (4.10-5.30); REDCELL DISTRIBUTION WIDTH-CV 14.9 % (11.5-14.5)
[2019-10-09 07:18] VITALS: BP 149/57; PULSE 62; TEMP 98.2
[2019-10-09 07:22] LABS: ALBUMIN 3.7 gm/dL (3.5-5.0); BILIRUBIN,TOTAL 0.6 mg/dL (0.0-1.0); CREATININE, serum 4.51 (0.52-1.25); POTASSIUM 4.3 mmol/L (3.4-5.0); TOTAL PROTEIN 6.7 gm/dL (6.4-8.2)
--- NOTE | 2019-10-09 10:39 | NUR ---
Assessment complete. Patient sitting up in recliner at this time. States she is feeling a little bit better. She is aware of her POC at this time. Denies pain or shortness of breath. Dialysis catheter was removed at bedside side is dressed with gauze, free of bleeding or drainage. IV site CD&I, flushed well. No other needs were expressed at thsi time. Call light is in reach.
--- NOTE | 2019-10-09 12:14 | NUR ---
First visit from the catalyst operator gasoline. No needs right now.
[2019-10-09 13:28] VITALS: BP 135/68; PULSE 62; TEMP 98.2
--- NOTE | 2019-10-09 14:30 | NUR ---
Discharge today, 10/08. SW met with the patient to complete initial intake. The patient lives alone in [place]. The patient uses 2L of oxygen at night and is independent with ADLs. The patient's PCP is Dr. Vanegas and patient receives medications from [facility] with no difficulties. They deliver, if needed. The patient has advanced directives in the EMR. The patient plans to go home at discharge. The patient is a readmit, SW conducted a readmission patient interview. The patient had a follow up appointment with her PCP after her last admission but she missed it and rescheduled it for 10/15. The patient states she made her own appointment. The patient discharged home with no services. The patient was provided education on her diagnosis and medications. The patient did not have to fill prescriptions at discharge and she does take her medications as prescribed. There are no additional needs at this time.
--- NOTE | 2019-10-09 16:08 | NUR ---
Pt has had no needs today. She has been stable, she is currently just waiting to see Dr. Romano for discharge. Continuing to [facility]. Call light is in reach.
--- NOTE | 2019-10-09 18:05 | NUR ---
pt left the floor at this time. Discharge instructions were discussed. No further questions or concerns. Call light is in reach.
== END 2019-10-09 18:06 | disposition home or self-care (01) | DRG 640 ==
LOC: COL.ER 07:50 → MEDICAL 08:27
PROVIDERS: Emergency Medicine; ADMIT Internal Medicine Nephrology
PROC: 5A09357 Assistance with Respiratory Ventilation, Less than 24 Consecutive Hours, Continuous Positive Airway Pressure (ICD-10-PCS; principal; 2019-10-07)
PROC: 5A1D70Z Performance of Urinary Filtration, Intermittent, Less than 6 Hours Per Day (ICD-10-PCS; 2019-10-07)
DX: E87.70 Fluid overload, unspecified (principal); J96.01 Acute respiratory failure with hypoxia; N18.6 End stage renal disease; J44.1 Chronic obstructive pulmonary disease with (acute) exacerbation; I12.0 Hypertensive chronic kidney disease with stage 5 chronic kidney disease or end stage renal disease; G89.29 Other chronic pain; E11.22 Type 2 diabetes mellitus with diabetic chronic kidney disease; E66.01 Morbid (severe) obesity due to excess calories; I16.0 Hypertensive urgency; G47.30 Sleep apnea, unspecified; M54.9 Dorsalgia, unspecified; Z79.82 Long term (current) use of aspirin; Z87.891 Personal history of nicotine dependence; Z91.15 Patient's noncompliance with renal dialysis
CPT/HCPCS: J1644; J1815; J1940; J2405; J2916; J7030; Q5105

== ENCOUNTER 2019-10-18 08:29 | Outpatient (CLI) | payer MEDICARE ==
[~2019-10-18] VITALS: Ht 160 cm; Wt 140.7 kg
[~2019-10-18 08:29] MED LIST changes: +NYSTATIN CREAM15 GM TP; +TOPICORT CREAM15 GM TP
[2019-10-18 09:23] VITALS: BP 136/66; PULSE 66; TEMP 98.4
--- NOTE | 2019-10-18 11:58 | NUR ---
SEE MERGE DOCMENTATION FOR MEDICATION ADMINISTRATION TIMES AND INTRA/POST PROCEDURE SEDATION ASSESSMENTS.
[2019-10-18 12:58] VITALS: BP 156/73; PULSE 73
[2019-10-18 13:30] VITALS: BP 170/76; PULSE 70
[2019-10-18 14:00] VITALS: BP 161/67; PULSE 67
--- NOTE | 2019-10-18 14:30 | NUR ---
Pt is ready for departure, pt has remained awake and alert, pwd since her return from cath lab manager. Dressings to her tunnel cath have remained clean and dry. iv is dc'd, cath intact. pt denied questions about dc or follow up. Pt was escorted to exit via wheelchair.
== END 2019-10-18 14:30 | disposition home or self-care (01) ==
LOC: COL.CAR 08:29
DX: T82.898A Other specified complication of vascular prosthetic devices, implants and grafts, initial encounter (principal); N18.6 End stage renal disease; Z90.5 Acquired absence of kidney; Z90.722 Acquired absence of ovaries, bilateral; Z87.891 Personal history of nicotine dependence
CPT/HCPCS: J0690; J1644; J2250; J3010

== ENCOUNTER 2020-03-19 04:35 | Inpatient (IN) | payer MEDICARE ==
[~2020-03-19] VITALS: Ht 160 cm; Wt 131.7 kg
[2020-03-19 04:56] LABS: ARTERIAL BLD GAS O2 SATURATION 96.3 % (92-100); ARTERIAL BLD GAS TCO2 CT 22.5; ARTERIAL BLOOD GAS BASE EXCESS -10.2 (-2-2); ARTERIAL BLOOD GAS HCO3 20.4 meq/L (22-26); ARTERIAL BLOOD GAS PO2 103.3 mmHg (80-100)
[2020-03-19 04:57] LABS: ARTERIAL BLOOD GAS PCO2 69.5 mmHg (35-45); ARTERIAL BLOOD GAS pH 7.09 (7.35-7.45)
[2020-03-19 05:10] LABS: BASO # 0.1 (0.0-0.2); BASO % 0.4 % (0.0-2.0); EOS # 0.2 (0.0-0.7); EOS % 1.5 % (0-4.0); GRAN # 10.1 (1.4-6.5); HEMATOCRIT 37.6 % (37.0-47.0); HEMOGLOBIN 11.3 g/dl (12.5-16.0); LYMPH # 2.4 (1.2-3.4); LYMPH % 17.8 % (20.0-51.0); MEAN CELL VOLUME 100 fl (80.0-100.0); MEAN CORPUSCULAR HEMOGLOBIN 30 pg (27.0-31.0); MEAN CORPUSCULAR HGB CONC 30 g/dl (33.0-37.0); MEAN PLATELET VOLUME 10.2 fl (7.4-10.4); MONO # 0.7 (0.1-0.6); MONO % 5.3 % (1.7-9.3); PLATELET COUNT 225 K/mm3 (130-400); RED BLOOD COUNT 3.75 M/mm3 (4.10-5.30); REDCELL DISTRIBUTION WIDTH-CV 14.1 % (11.5-14.5)
[2020-03-19 05:19] LABS: PARTIAL THROMBOPLASTIN TIME 40.1 SECONDS (26.0-37.0)
[2020-03-19 05:24] LABS: ALBUMIN 4.2 gm/dL (3.5-5.0); BILIRUBIN,TOTAL 0.4 mg/dL (0.0-1.0); C-REACTIVE PROTEIN 1.2 mg/dL (0.0-0.9); CALCIUM 8.7 mg/dL (8.4-10.2); CREATININE, serum 6.07 (0.52-1.25); TOTAL PROTEIN 7.1 gm/dL (6.4-8.2)
[2020-03-19 05:29] LABS: POTASSIUM 5.9 mmol/L (3.4-5.0)
[2020-03-19 05:32] LABS: TROPONIN-I 0.029 ng/mL (0.000-0.035)
[2020-03-19 06:20] LABS: ARTERIAL BLD GAS O2 SATURATION 98.6 % (92-100); ARTERIAL BLOOD GAS BASE EXCESS -8.1 (-2-2); ARTERIAL BLOOD GAS HCO3 20.3 meq/L (22-26); ARTERIAL BLOOD GAS PCO2 55.3 mmHg (35-45); ARTERIAL BLOOD GAS PO2 149.9 mmHg (80-100); ARTERIAL BLOOD GAS pH 7.18 (7.35-7.45)
[2020-03-19 15:40] VITALS: BP 154/90; PULSE 75; TEMP 98.6
[2020-03-19] MEDS ORDERED: RENVELA800 MG PO (15:51)
[2020-03-19 17:05] VITALS: BP 148/88; PULSE 76; TEMP 98.6
[2020-03-19 20:00] VITALS: BP 125/58; PULSE 73; TEMP 98.5
[2020-03-19 22:16] VITALS: BP 147/64; PULSE 84; TEMP 97.9
[2020-03-20 04:00] VITALS: BP 146/61; PULSE 59; TEMP 98.4
[2020-03-20 07:45] LABS: BASO % 0.6 % (0.0-2.0); EOS # 0.2 (0.0-0.7); EOS % 2.1 % (0-4.0); GRAN # 4.1 (1.4-6.5); GRAN % 58.4 % (42.2-75.2); LYMPH % 28.2 % (20.0-51.0); MEAN CELL VOLUME 98 fl (80.0-100.0); MEAN CORPUSCULAR HGB CONC 30 g/dl (33.0-37.0); MEAN PLATELET VOLUME 10.1 fl (7.4-10.4); MONO # 0.7 (0.1-0.6); MONO % 10.3 % (1.7-9.3); PLATELET COUNT 157 K/mm3 (130-400); RED BLOOD COUNT 3.12 M/mm3 (4.10-5.30); REDCELL DISTRIBUTION WIDTH-CV 14.2 % (11.5-14.5)
[2020-03-20 07:57] LABS: HEMOGLOBIN 9.2 g/dl (12.5-16.0); MEAN CORPUSCULAR HEMOGLOBIN 29 pg (27.0-31.0)
[2020-03-20 07:58] LABS: ALBUMIN 3.6 gm/dL (3.5-5.0); BILIRUBIN,TOTAL 0.6 mg/dL (0.0-1.0); CALCIUM 8.6 mg/dL (8.4-10.2); CREATININE, serum 5.09 (0.52-1.25); HEMATOCRIT 30.5 % (37.0-47.0); POTASSIUM 4.6 mmol/L (3.4-5.0); TOTAL PROTEIN 6.2 gm/dL (6.4-8.2)
[2020-03-20 08:43] VITALS: BP 152/72; PULSE 62; TEMP 98.3
[2020-03-20 12:18] VITALS: BP 164/68; PULSE 66; TEMP 98.4
[2020-03-20 17:12] VITALS: BP 160/64; PULSE 64; TEMP 97.6
[2020-03-20 20:36] VITALS: BP 138/78; PULSE 70; TEMP 98.3
[2020-03-21] VITALS (7 sets, daily range): BP systolic 122–175; BP diastolic 62–84; PULSE 61–82; TEMP 98–98.8
[2020-03-21 13:18] LABS: BASO % 0.4 % (0.0-2.0); EOS # 0.1 (0.0-0.7); EOS % 1.8 % (0-4.0); GRAN # 4.2 (1.4-6.5); GRAN % 57.3 % (42.2-75.2); LYMPH # 2.2 (1.2-3.4); LYMPH % 30.7 % (20.0-51.0); MEAN CELL VOLUME 97 fl (80.0-100.0); MEAN CORPUSCULAR HGB CONC 31 g/dl (33.0-37.0); MEAN PLATELET VOLUME 9.7 fl (7.4-10.4); MONO # 0.7 (0.1-0.6); MONO % 9.3 % (1.7-9.3); PLATELET COUNT 161 K/mm3 (130-400); RED BLOOD COUNT 3.12 M/mm3 (4.10-5.30); REDCELL DISTRIBUTION WIDTH-CV 13.9 % (11.5-14.5)
[2020-03-21 13:20] LABS: HEMATOCRIT 30.2 % (37.0-47.0); HEMOGLOBIN 9.4 g/dl (12.5-16.0); MEAN CORPUSCULAR HEMOGLOBIN 30 pg (27.0-31.0)
[2020-03-21 13:49] LABS: ALBUMIN 3.6 gm/dL (3.5-5.0); BILIRUBIN,TOTAL 0.4 mg/dL (0.0-1.0); CALCIUM 8.4 mg/dL (8.4-10.2); CREATININE, serum 6.22 (0.52-1.25); POTASSIUM 5.4 mmol/L (3.4-5.0); TOTAL PROTEIN 6.3 gm/dL (6.4-8.2)
[2020-03-22 00:40] VITALS: BP 128/62; PULSE 56; TEMP 98.3
[2020-03-22 03:53] VITALS: BP 124/59; PULSE 58; TEMP 97
[2020-03-22 09:44] VITALS: BP 123/64; PULSE 60; TEMP 97.7
[2020-03-22 12:43] VITALS: BP 162/58; PULSE 66; TEMP 97.6
== END 2020-03-22 13:30 | disposition home or self-care (01) | DRG 640 ==
LOC: COL.ER 04:35 → PEDS 07:51
PROVIDERS: Emergency Medicine; ADMIT Internal Medicine Nephrology
PROC: 5A1D70Z Performance of Urinary Filtration, Intermittent, Less than 6 Hours Per Day (ICD-10-PCS; principal; 2020-03-19)
DX: E87.70 Fluid overload, unspecified (principal); N18.6 End stage renal disease; J96.22 Acute and chronic respiratory failure with hypercapnia; J96.21 Acute and chronic respiratory failure with hypoxia; I13.0 Hypertensive heart and chronic kidney disease with heart failure and stage 1 through stage 4 chronic kidney disease, or unspecified chronic kidney disease; I16.1 Hypertensive emergency; I50.32 Chronic diastolic (congestive) heart failure; N25.81 Secondary hyperparathyroidism of renal origin; J44.9 Chronic obstructive pulmonary disease, unspecified; G47.30 Sleep apnea, unspecified; E66.01 Morbid (severe) obesity due to excess calories; E11.22 Type 2 diabetes mellitus with diabetic chronic kidney disease; E78.5 Hyperlipidemia, unspecified; E87.5 Hyperkalemia; D63.1 Anemia in chronic kidney disease; Z99.2 Dependence on renal dialysis; Z79.4 Long term (current) use of insulin; Z87.891 Personal history of nicotine dependence
CPT/HCPCS: J1644; J1815; J7030; Q5105

== ENCOUNTER 2020-06-11 21:40 | Inpatient (IN) | payer MEDICARE ==
[~2020-06-11] VITALS: Ht 162.6 cm; Wt 145.0 kg
[~2020-06-11 21:40] MED LIST changes: +DEMADEX100 MG PO; +DESYREL DIVIDO150 M1 PO; +RENVELA800 MG PO; +TOPROL XL 25MG25 MG PO
[2020-06-11 22:00] LABS: BASO % 0.4 % (0.0-2.0); EOS # 0.1 (0.0-0.7); EOS % 1.2 % (0-4.0); GRAN # 5.9 (1.4-6.5); GRAN % 73.7 % (42.2-75.2); HEMOGLOBIN 11.2 g/dl (12.5-16.0); LYMPH # 1.2 (1.2-3.4); LYMPH % 14.7 % (20.0-51.0); MEAN CELL VOLUME 97 fl (80.0-100.0); MEAN CORPUSCULAR HEMOGLOBIN 30 pg (27.0-31.0); MEAN CORPUSCULAR HGB CONC 31 g/dl (33.0-37.0); MONO # 0.7 (0.1-0.6); PLATELET COUNT 178 K/mm3 (130-400); RED BLOOD COUNT 3.75 M/mm3 (4.10-5.30); REDCELL DISTRIBUTION WIDTH-CV 13.9 % (11.5-14.5)
[2020-06-11 22:01] LABS: HEMATOCRIT 36.3 % (37.0-47.0)
[2020-06-11 22:11] LABS: BILIRUBIN,TOTAL 0.4 mg/dL (0.0-1.0); CALCIUM 8.6 mg/dL (8.4-10.2); CREATININE, serum 3.98 (0.52-1.25); POTASSIUM 4.4 mmol/L (3.4-5.0)
[2020-06-11 22:26] LABS: TROPONIN-I 0.122 ng/mL (0.000-0.035)
[2020-06-11 23:02] LABS: PROTHROMBIN TIME 11.1 SECONDS (9.7-12.8)
[2020-06-11 23:05] LABS: PARTIAL THROMBOPLASTIN TIME 35.2 SECONDS (26.0-37.0)
[2020-06-12] VITALS (7 sets, daily range): BP systolic 139–170; BP diastolic 53–79; PULSE 74–91; TEMP 97.6–98.1
[2020-06-13] VITALS (13 sets, daily range): BP systolic 120–165; BP diastolic 28–80; PULSE 53–93; TEMP 97.5–98.5
[2020-06-13 13:11] LABS: BASO % 0.2 % (0.0-2.0); EOS # 0.1 (0.0-0.7); EOS % 0.5 % (0-4.0); GRAN # 7.1 (1.4-6.5); GRAN % 75.4 % (42.2-75.2); HEMOGLOBIN 10.9 g/dl (12.5-16.0); LYMPH # 1.5 (1.2-3.4); LYMPH % 15.4 % (20.0-51.0); MEAN CELL VOLUME 96 fl (80.0-100.0); MEAN CORPUSCULAR HEMOGLOBIN 30 pg (27.0-31.0); MEAN CORPUSCULAR HGB CONC 31 g/dl (33.0-37.0); MEAN PLATELET VOLUME 10.1 fl (7.4-10.4); MONO # 0.8 (0.1-0.6); PLATELET COUNT 168 K/mm3 (130-400); RED BLOOD COUNT 3.62 M/mm3 (4.10-5.30); REDCELL DISTRIBUTION WIDTH-CV 13.8 % (11.5-14.5)
[2020-06-13 13:12] LABS: HEMATOCRIT 34.9 % (37.0-47.0)
[2020-06-13 13:13] LABS: ALBUMIN 3.8 gm/dL (3.5-5.0); CALCIUM 8.9 mg/dL (8.4-10.2); CREATININE, serum 5.43 (0.52-1.25); POTASSIUM 4.9 mmol/L (3.4-5.0)
[2020-06-13 13:26] LABS: TROPONIN-I 12.9 ng/mL (0.000-0.035)
[2020-06-14] VITALS (14 sets, daily range): BP systolic 122–185; BP diastolic 56–115; PULSE 65–76; TEMP 98.1–98.6
[2020-06-14] MEDS ORDERED: TOPROL XL 50MG50 MG PO (10:48)
[2020-06-14] MEDS ORDERED: IMDUR 60MG60 MG/TAB PO (10:48)
[2020-06-14] MEDS ORDERED: RANEXA 500MG T500 MG PO (10:48)
== END 2020-06-14 15:49 | disposition home or self-care (01) | DRG 280 ==
LOC: COL.ER 21:40 → SURG 22:48
PROVIDERS: Emergency Medicine; Internal Medicine Nephrology; ADMIT Internal Medicine Cardiovascular Disease
PROC: 5A1D70Z Performance of Urinary Filtration, Intermittent, Less than 6 Hours Per Day (ICD-10-PCS; principal; 2020-06-13)
PROC: 4A023N7 Measurement of Cardiac Sampling and Pressure, Left Heart, Percutaneous Approach (ICD-10-PCS; 2020-06-14)
PROC: B2111ZZ Fluoroscopy of Multiple Coronary Arteries using Low Osmolar Contrast (ICD-10-PCS; 2020-06-14)
DX: I21.4 Non-ST elevation (NSTEMI) myocardial infarction (principal); N18.6 End stage renal disease; I12.0 Hypertensive chronic kidney disease with stage 5 chronic kidney disease or end stage renal disease; I13.2 Hypertensive heart and chronic kidney disease with heart failure and with stage 5 chronic kidney disease, or end stage renal disease; I50.30 Unspecified diastolic (congestive) heart failure; G89.29 Other chronic pain; M54.9 Dorsalgia, unspecified; D63.1 Anemia in chronic kidney disease; E78.5 Hyperlipidemia, unspecified; I16.0 Hypertensive urgency; E66.01 Morbid (severe) obesity due to excess calories; Z20.828 Contact with and (suspected) exposure to other viral communicable diseases; E11.22 Type 2 diabetes mellitus with diabetic chronic kidney disease; Z90.722 Acquired absence of ovaries, bilateral; Z90.5 Acquired absence of kidney; Z87.891 Personal history of nicotine dependence; Z99.2 Dependence on renal dialysis
CPT/HCPCS: A9500; A9540; A9567; G0378; J1644; J1815; J2250; J2785; J3010; J7030; Q9967

== ENCOUNTER 2020-06-18 09:39 | Observation (INO) | payer MEDICARE ==
[~2020-06-18] VITALS: Ht 162.6 cm; Wt 141.8 kg
[~2020-06-18 09:39] MED LIST changes: +IMDUR 60MG60 MG/TAB PO; +RANEXA 500MG T500 MG PO
[2020-06-18 10:19] LABS: BASO % 0.3 % (0.0-2.0); EOS # 0.1 (0.0-0.7); EOS % 0.8 % (0-4.0); GRAN # 7.9 (1.4-6.5); GRAN % 81.4 % (42.2-75.2); HEMATOCRIT 35.1 % (37.0-47.0); HEMOGLOBIN 10.7 g/dl (12.5-16.0); LYMPH % 10.8 % (20.0-51.0); MEAN CELL VOLUME 96 fl (80.0-100.0); MEAN CORPUSCULAR HEMOGLOBIN 29 pg (27.0-31.0); MEAN CORPUSCULAR HGB CONC 31 g/dl (33.0-37.0); MEAN PLATELET VOLUME 10.3 fl (7.4-10.4); MONO # 0.6 (0.1-0.6); MONO % 6.1 % (1.7-9.3); PLATELET COUNT 189 K/mm3 (130-400); RED BLOOD COUNT 3.65 M/mm3 (4.10-5.30); REDCELL DISTRIBUTION WIDTH-CV 13.6 % (11.5-14.5)
[2020-06-18 10:21] LABS: ARTERIAL BLD GAS O2 SATURATION 99.2 % (92-100); ARTERIAL BLD GAS TCO2 CT 23.1; ARTERIAL BLOOD GAS BASE EXCESS -3.7 (-2-2); ARTERIAL BLOOD GAS HCO3 21.8 meq/L (22-26); ARTERIAL BLOOD GAS PCO2 41.4 mmHg (35-45); ARTERIAL BLOOD GAS PO2 207.2 mmHg (80-100); ARTERIAL BLOOD GAS pH 7.34 (7.35-7.45)
[2020-06-18 10:33] LABS: BILIRUBIN,TOTAL 0.7 mg/dL (0.0-1.0); C-REACTIVE PROTEIN 5.7 mg/dL (0.0-0.9); CALCIUM 8.9 mg/dL (8.4-10.2); CREATININE, serum 6.77 (0.52-1.25); MAGNESIUM 1.9 mg/dL (1.6-2.3); TOTAL PROTEIN 7.1 gm/dL (6.4-8.2)
[2020-06-18 10:48] LABS: POTASSIUM 6.6 mmol/L (3.4-5.0)
[2020-06-18 10:49] LABS: TROPONIN-I 3.69 ng/mL (0.000-0.035)
[2020-06-18 11:08] LABS: COLLECTION METHOD CLEAN CATCH
[2020-06-18 11:38] LABS: MUCOUS Present /lpf; PH 5 (5-8); SQUAMOUS EPITHELIAL 0-2 /hpf; URINE APPEARANCE Cloudy; URINE BACTERIA Rare /hpf; URINE BILIRUBIN Negative (NEGATIVE); URINE BLOOD 1+ (NEGATIVE); URINE COLOR Yellow; URINE GLUCOSE 2+ (NEGATIVE); URINE KETONE Negative (NEGATIVE); URINE LEUKOCYTE ESTERASE Negative (NEGATIVE); URINE NITRATE Negative (NEGATIVE); URINE PROTEIN(semi-quant) 2+ (NEGATIVE); URINE UROBILINOGEN Negative (NEGATIVE)
--- NOTE | 2020-06-18 18:23 | NUR ---
Pt currently in dialysis, initial assessments complete.
[2020-06-18 19:24] VITALS: BP 131/69; PULSE 102; TEMP 98.2
[2020-06-18 23:08] VITALS: BP 120/88; PULSE 99; TEMP 97.8
[2020-06-19 03:42] VITALS: BP 135/61; PULSE 69; TEMP 97.5
--- NOTE | 2020-06-19 04:25 | NUR ---
Freq rounding done on pt overnight. Resp even and unlabored with bipap at HS. Dr Hughes restarted home med last night along with sliding scale for insulin. Consulting dr messina this am per order. US of gallbladder today. POC discussed with pt. Dialysis done yesturday.
[2020-06-19 07:08] VITALS: BP 137/60; PULSE 70; TEMP 97.1
--- NOTE | 2020-06-19 08:00 | NUR ---
Pt resting in bed. Assessment as charted. C-Pap on, RT here to complete breathing tx. Breath sounds diminished @ bases. No SOB @ rest. Telemetry on. Rt. internal jugular vein cathether intact, no redness noted. Bilat lower extremities non-pitting edema. Dry/ scaly skin noted to entire body. Pt denies pain.
--- NOTE | 2020-06-19 08:45 | NUR ---
Rt. internal jugular vein catheter removed by receiver/laborer. Drsg site CDI. Pt assisted up to chair, no SOB noted. Pt denies pain.
[2020-06-19 11:17] VITALS: BP 124/52; PULSE 66; TEMP 97.6
--- NOTE | 2020-06-19 12:17 | NUR ---
First visit from the plug stitcher. No needs right now.
[2020-06-19 13:00] LABS: BASO % 0.2 % (0.0-2.0); EOS % 0.2 % (0-4.0); GRAN % 73.8 % (42.2-75.2); HEMATOCRIT 33.9 % (37.0-47.0); HEMOGLOBIN 10.1 g/dl (12.5-16.0); LYMPH # 1.5 (1.2-3.4); LYMPH % 14.1 % (20.0-51.0); MEAN CELL VOLUME 97 fl (80.0-100.0); MEAN CORPUSCULAR HEMOGLOBIN 29 pg (27.0-31.0); MEAN CORPUSCULAR HGB CONC 30 g/dl (33.0-37.0); MEAN PLATELET VOLUME 10.3 fl (7.4-10.4); MONO # 1.2 (0.1-0.6); MONO % 10.9 % (1.7-9.3); PLATELET COUNT 239 K/mm3 (130-400); RED BLOOD COUNT 3.49 M/mm3 (4.10-5.30); REDCELL DISTRIBUTION WIDTH-CV 13.7 % (11.5-14.5)
[2020-06-19 13:13] LABS: ALBUMIN 3.9 gm/dL (3.5-5.0); CALCIUM 9.2 mg/dL (8.4-10.2); CREATININE, serum 5.69 (0.52-1.25); PHOSPHOROUS 6.2 mg/dL (2.5-4.5); POTASSIUM 5.3 mmol/L (3.4-5.0)
[2020-06-19 16:32] VITALS: BP 135/54; PULSE 69; TEMP 97.6
--- NOTE | 2020-06-19 18:38 | NUR ---
Pt dfischarged to home, discussed discharge packet with Pt.
--- NOTE | 2020-06-20 10:39 | NUR ---
(late entry 06/19) The patient is a readmit. Housekeeper Nanny met with the patient to complete intake. The patient lives alone in [place]. Her daughter lives nearby. The patient has a walker, shower chair, home oxygen at 2L, and trilogy. The patient's PCP is Dr. Vanegas and the patient [facility]. The patient has advanced directives. The patient plans to return home at discharge with her daughter providing transporation. SW discussed readmission with the patient. The patient's follow up appointment with Dr. Vanegas is this Wednesday, 06/21. The patient has a cadiology appointment on 06/26. She reports she has been taking her medications as prescribed. The patient discharged on 06/19.
== END 2020-06-19 18:39 | disposition home or self-care (01) ==
LOC: COL.ER 09:39 → MEDICAL 13:09
PROVIDERS: Emergency Medicine; ADMIT Internal Medicine Nephrology
DX: J96.92 Respiratory failure, unspecified with hypercapnia (principal); E11.22 Type 2 diabetes mellitus with diabetic chronic kidney disease; I13.2 Hypertensive heart and chronic kidney disease with heart failure and with stage 5 chronic kidney disease, or end stage renal disease; N18.6 End stage renal disease; E78.5 Hyperlipidemia, unspecified; E66.01 Morbid (severe) obesity due to excess calories; G47.33 Obstructive sleep apnea (adult) (pediatric); J44.9 Chronic obstructive pulmonary disease, unspecified; Z99.2 Dependence on renal dialysis; Z79.4 Long term (current) use of insulin; I50.30 Unspecified diastolic (congestive) heart failure; D63.1 Anemia in chronic kidney disease; E21.3 Hyperparathyroidism, unspecified; Z79.82 Long term (current) use of aspirin; Z87.891 Personal history of nicotine dependence; Z20.822 Contact with and (suspected) exposure to COVID-19
CPT/HCPCS: G0378; J0456; J0696; J1644; J1815; J2930; J7030; J7050; Q5105; Q9967

== ENCOUNTER 2020-08-02 21:16 | Emergency (ER) | payer MEDICARE ==
[~2020-08-02] VITALS: Ht 162.6 cm; Wt 130.0 kg
[~2020-08-02 21:16] MED LIST changes: +NORCO 325 MG-7.1 TAB PO
[2020-08-02 21:19] VITALS: TEMP 97.6
[2020-08-02 21:41] LABS: BASO % 0.3 % (0.0-2.0); EOS # 0.2 (0.0-0.7); EOS % 2.7 % (0-4.0); GRAN # 4.9 (1.4-6.5); GRAN % 68.2 % (42.2-75.2); LYMPH # 1.3 (1.2-3.4); LYMPH % 18.2 % (20.0-51.0); MEAN CELL VOLUME 94 fl (80.0-100.0); MEAN CORPUSCULAR HGB CONC 30 g/dl (33.0-37.0); MEAN PLATELET VOLUME 11.2 fl (7.4-10.4); MONO # 0.7 (0.1-0.6); MONO % 9.8 % (1.7-9.3); PLATELET COUNT 166 K/mm3 (130-400); RED BLOOD COUNT 3.39 M/mm3 (4.10-5.30)
[2020-08-02 21:43] LABS: HEMOGLOBIN 9.6 g/dl (12.5-16.0); MEAN CORPUSCULAR HEMOGLOBIN 28 pg (27.0-31.0)
[2020-08-02 21:45] LABS: POTASSIUM 4.1 mmol/L (3.4-5.0)
[2020-08-02 21:46] LABS: ALBUMIN 3.7 gm/dL (3.5-5.0); CALCIUM 8.6 mg/dL (8.4-10.2); CREATININE, serum 3.85 (0.52-1.25)
[2020-08-02 22:00] LABS: TROPONIN-I 0.088 ng/mL (0.000-0.035)
[2020-08-03 00:44] VITALS: BP 167/71; PULSE 79
[2021-01-11] MEDS ORDERED: AURYXIA1 GM PO (17:32)
[2021-01-22] MEDS ORDERED: PLAVIX 75MG TAB75 MG PO (16:42)
[2021-01-22] MEDS ORDERED: ULTRAM 50MG TAB50 MG PO (16:43)
[2021-01-22] MEDS ORDERED: TOPROL XL 25MG25 MG PO (16:43)
[2021-01-22] MEDS ORDERED: DEMADEX100 MG PO (16:45)
== END 2020-08-03 00:52 | disposition home or self-care (01) ==
LOC: COL.ER 21:16
PROVIDERS: Emergency Medicine
DX: R07.9 Chest pain, unspecified (principal); R94.5 Abnormal results of liver function studies
CPT/HCPCS: Q9967

== ENCOUNTER 2020-08-05 09:24 | Observation (INO) | payer MEDICARE ==
[~2020-08-05] VITALS: Ht 162.6 cm; Wt 129.4 kg
[2020-08-05 10:08] LABS: BASO % 0.2 % (0.0-2.0); EOS # 0.1 (0.0-0.7); GRAN # 7.2 (1.4-6.5); GRAN % 83.4 % (42.2-75.2); LYMPH # 0.7 (1.2-3.4); LYMPH % 7.7 % (20.0-51.0); MEAN CELL VOLUME 94 fl (80.0-100.0); MEAN CORPUSCULAR HGB CONC 30 g/dl (33.0-37.0); MEAN PLATELET VOLUME 10.9 fl (7.4-10.4); MONO # 0.6 (0.1-0.6); PLATELET COUNT 191 K/mm3 (130-400); RED BLOOD COUNT 3.54 M/mm3 (4.10-5.30); REDCELL DISTRIBUTION WIDTH-CV 14.3 % (11.5-14.5)
[2020-08-05 10:13] LABS: HEMATOCRIT 33.2 % (37.0-47.0); HEMOGLOBIN 9.8 g/dl (12.5-16.0); MEAN CORPUSCULAR HEMOGLOBIN 28 pg (27.0-31.0); PROTHROMBIN TIME 10.7 SECONDS (9.7-12.8)
[2020-08-05 10:16] LABS: PARTIAL THROMBOPLASTIN TIME 41.4 SECONDS (26.0-37.0)
[2020-08-05 10:18] LABS: ARTERIAL BLD GAS O2 SATURATION 89.8 % (92-100); ARTERIAL BLD GAS TCO2 CT 24.8; ARTERIAL BLOOD GAS BASE EXCESS -2.2 (-2-2); ARTERIAL BLOOD GAS HCO3 23.5 meq/L (22-26); ARTERIAL BLOOD GAS PCO2 44.1 mmHg (35-45); ARTERIAL BLOOD GAS PO2 60.8 mmHg (80-100); ARTERIAL BLOOD GAS pH 7.34 (7.35-7.45)
[2020-08-05 10:19] LABS: ALBUMIN 3.7 gm/dL (3.5-5.0); BILIRUBIN,TOTAL 1.1 mg/dL (0.0-1.0); CALCIUM 8.5 mg/dL (8.4-10.2); CREATININE, serum 6.25 (0.52-1.25); POTASSIUM 4.5 mmol/L (3.4-5.0); TOTAL PROTEIN 7.1 gm/dL (6.4-8.2)
[2020-08-05 10:33] LABS: TROPONIN-I 0.187 ng/mL (0.000-0.035)
--- NOTE | 2020-08-05 14:37 | NUR ---
Patient tolerated HD tx today, removed 2.3 L of fluid. Next tx planned for Wednesday08/07/2020 @ 0730.
[2020-08-05 16:42] VITALS: BP 177/64; PULSE 77; TEMP 98.4
--- NOTE | 2020-08-05 18:05 | NUR ---
Pt has done well since arriving to the floor this afteornoon after dialysis. Resting in recliner at side of bed, eating well, called Bedros for orders on HTN and VTE prophylaxis, VM left. Pt denies needs, will give bedside shift report to nightshift nurse gabriel mi resume care.
[2020-08-05 20:00] VITALS: BP 1600/72; PULSE 71; TEMP 97.9
[2020-08-06] VITALS (8 sets, daily range): BP systolic 92–169; BP diastolic 46–76; PULSE 55–73; TEMP 97.6–98.4
--- NOTE | 2020-08-06 04:56 | NUR ---
pATIENT HAD RESTFUL EVENING. sHE SLEPT MOST OF TIME AND WAS ONLY AWAKE PERIODICALLY; CPAP ADJUSTED BY RT. pATIENT IS AWARE OF HER HEALTH AND MERDICATIONS AND WAS INSULIN DOSING WAS DISCUSSED PRIOR TO ANY ADMINISTRATION. NO OTHER NEEDS OR CONCERNS VOICED AT THIS TIME.
--- NOTE | 2020-08-06 07:05 | NUR ---
sitting up on side of bed, bedside shift report received from ZAIRA Agee
[2020-08-06 07:08] LABS: BASO % 0.1 % (0.0-2.0); GRAN # 5.6 (1.4-6.5); LYMPH # 0.9 (1.2-3.4); MEAN CELL VOLUME 93 fl (80.0-100.0); MEAN CORPUSCULAR HGB CONC 30 g/dl (33.0-37.0); MEAN PLATELET VOLUME 11.2 fl (7.4-10.4); MONO # 0.5 (0.1-0.6); MONO % 6.9 % (1.7-9.3); PLATELET COUNT 227 K/mm3 (130-400); RED BLOOD COUNT 3.32 M/mm3 (4.10-5.30); REDCELL DISTRIBUTION WIDTH-CV 13.9 % (11.5-14.5)
[2020-08-06 07:16] LABS: HEMATOCRIT 30.7 % (37.0-47.0); HEMOGLOBIN 9.1 g/dl (12.5-16.0); MEAN CORPUSCULAR HEMOGLOBIN 27 pg (27.0-31.0)
[2020-08-06 07:18] LABS: ALBUMIN 3.5 gm/dL (3.5-5.0); BILIRUBIN,TOTAL 0.6 mg/dL (0.0-1.0); CALCIUM 8.5 mg/dL (8.4-10.2); CREATININE, serum 4.34 (0.52-1.25); POTASSIUM 4.4 mmol/L (3.4-5.0); TOTAL PROTEIN 6.7 gm/dL (6.4-8.2)
--- NOTE | 2020-08-06 08:00 | NUR ---
up in chair and had breakfast, full assessment completed, see interventions for further info, transferred per WC to dialysis
--- NOTE | 2020-08-06 09:24 | NUR ---
remains in dialysis, denies needs
--- NOTE | 2020-08-06 11:13 | NUR ---
remains in dialysis
--- NOTE | 2020-08-06 11:23 | NUR ---
returned from dialysis per WC and into recliner
--- NOTE | 2020-08-06 11:27 | NUR ---
Patient tolerated HD tx with challenge to dry weight. Next tx planned @ the clinic on 08/08/20 @ 9657.
--- NOTE | 2020-08-06 13:19 | NUR ---
notified Dr Jose regarding order for CT guided pancreatic mass biopsy
--- NOTE | 2020-08-06 13:35 | NUR ---
After talking with Dr Jose and Dr Bergman, informed nurse that they had both stated biopsy was not possible due to position. Dr Jose to inform Dr Romano.
--- NOTE | 2020-08-06 14:45 | NUR ---
Splitting Machine Operator met with the patient to complete intake. The patient had just finished her shower and is independent in her room. The patient lives alone in [place]. The patient has a cane, walker, night oxygen at 2.5L and a trilogy. The patient's PCP is Dr. Vanegas and patient receives medications from [facility]. The patient has advanced directives in the EMR. The patient plans to return home at discharge. One of her daughters will be providing transportation. SW discussed applying for Medicaid. She would like to try. Hanane Wu, Financial Counselor consulted. Discharge disposition: Home
--- NOTE | 2020-08-06 14:53 | NUR ---
had shower and tolerated well, up and ambulating in [place] with physical therapy
--- NOTE | 2020-08-06 15:55 | NUR ---
remains up in chair and denies needs
--- NOTE | 2020-08-06 18:50 | NUR ---
bedside shift report given to ZAIRA De Anda
--- NOTE | 2020-08-06 19:17 | NUR ---
Received report from Taylor. Seen patient awake, sitting in the recliner. Denies needs at this time.
--- NOTE | 2020-08-06 21:35 | NUR ---
Assesment done. Patient back on bed. Her blood glucose was 78mg/dl. She was given an apple juice and crackers. On rechecked it went up to 104mg/dl. She states she doesn't usually take Levemir if her blood glucose is really low. She said that due to her pancreatic cancer her blood glucose usually fluctuates.
[2020-08-07 03:49] VITALS: BP 117/36; PULSE 51; TEMP 97.7
--- NOTE | 2020-08-07 05:49 | NUR ---
Patient wearing CPAP while sleeping. She has uneventful night. Blood glucose was a bit low last night at 78mg/dl, apple juice given. Rechecked blood glucose and it went up to 104mg/dl.
[2020-08-07 07:07] LABS: BASO % 0.4 % (0.0-2.0); EOS # 0.1 (0.0-0.7); EOS % 0.7 % (0-4.0); GRAN # 4.1 (1.4-6.5); GRAN % 60.9 % (42.2-75.2); LYMPH # 1.7 (1.2-3.4); LYMPH % 25.6 % (20.0-51.0); MEAN CELL VOLUME 94 fl (80.0-100.0); MEAN CORPUSCULAR HGB CONC 29 g/dl (33.0-37.0); MEAN PLATELET VOLUME 10.8 fl (7.4-10.4); MONO # 0.8 (0.1-0.6); MONO % 11.4 % (1.7-9.3); PLATELET COUNT 236 K/mm3 (130-400); RED BLOOD COUNT 3.41 M/mm3 (4.10-5.30); REDCELL DISTRIBUTION WIDTH-CV 14.2 % (11.5-14.5)
[2020-08-07 07:08] LABS: HEMATOCRIT 32.2 % (37.0-47.0); HEMOGLOBIN 9.3 g/dl (12.5-16.0); MEAN CORPUSCULAR HEMOGLOBIN 27 pg (27.0-31.0)
[2020-08-07 07:20] LABS: ALBUMIN 3.3 gm/dL (3.5-5.0); BILIRUBIN,TOTAL 0.4 mg/dL (0.0-1.0); CALCIUM 8.5 mg/dL (8.4-10.2); CREATININE, serum 4.5 (0.52-1.25); POTASSIUM 3.9 mmol/L (3.4-5.0); TOTAL PROTEIN 6.3 gm/dL (6.4-8.2)
[2020-08-07 07:52] VITALS: BP 144/57; PULSE 57; TEMP 97.8
[2020-08-07 12:09] VITALS: BP 143/65; PULSE 60; TEMP 97.6
[2020-08-07 16:37] VITALS: BP 131/75; PULSE 110; TEMP 97.8
--- NOTE | 2020-08-07 17:00 | NUR ---
Patient resting in bedside recliner at this time. Patient is alert and oriented, answers questions appropriately. Patient denies pain. Patient denies SOA while at rest. No further needs, call light within reach.
--- NOTE | 2020-08-07 19:00 | NUR ---
Received report from Virgie. Patient awake, sitting in the recliner.
[2020-08-07 19:51] VITALS: BP 132/74; PULSE 59; TEMP 97.6
--- NOTE | 2020-08-07 21:15 | NUR ---
Assesment done. Patient still sitting in the recliner. Her blood glucose was 70mg/dl. Gave her crackers and apple juice. On recheck it was 77mg/dl. She doesn't want to take her Levemir again. She reports pain on her left shoulder with pain score of 3/10. She states she doesn't want pain medication for now.
[2020-08-08] VITALS: BP 167/58; PULSE 68; TEMP 97.4
[2020-08-08 05:19] VITALS: BP 136/60; PULSE 66; TEMP 97.4
--- NOTE | 2020-08-08 06:18 | NUR ---
Patient had uneventful night. Blood glucose is high this morning at 223mg/dl. She was using her CPAP the whole night. She did complain of pain on her shoulder around midnight with pain score of 6/10. [place] was given.
[2020-08-08 06:44] LABS: BASO % 0.4 % (0.0-2.0); EOS # 0.1 (0.0-0.7); EOS % 2.1 % (0-4.0); GRAN % 53.7 % (42.2-75.2); HEMATOCRIT 30.7 % (37.0-47.0); LYMPH # 1.8 (1.2-3.4); LYMPH % 31.4 % (20.0-51.0); MEAN CELL VOLUME 96 fl (80.0-100.0); MEAN CORPUSCULAR HEMOGLOBIN 28 pg (27.0-31.0); MEAN CORPUSCULAR HGB CONC 29 g/dl (33.0-37.0); MONO # 0.7 (0.1-0.6); MONO % 11.5 % (1.7-9.3); PLATELET COUNT 199 K/mm3 (130-400); RED BLOOD COUNT 3.21 M/mm3 (4.10-5.30); REDCELL DISTRIBUTION WIDTH-CV 14.1 % (11.5-14.5)
[2020-08-08 07:01] LABS: ALBUMIN 3.1 gm/dL (3.5-5.0); BILIRUBIN,TOTAL 0.4 mg/dL (0.0-1.0); CALCIUM 8.1 mg/dL (8.4-10.2); CREATININE, serum 5.71 (0.52-1.25); POTASSIUM 4.1 mmol/L (3.4-5.0); TOTAL PROTEIN 5.9 gm/dL (6.4-8.2)
[2020-08-08 08:04] VITALS: BP 159/63; PULSE 62; TEMP 98
[2020-08-08] MEDS ORDERED: LEVAQUIN 5500 MG/TA1 PO (11:47)
--- NOTE | 2020-08-08 12:00 | NUR ---
Patient had her bone scan. She is going to eat and go to dialysis. She has been doing well today. She stated she is feeling better today. Denies pain and nausea. She has been alert and oriented. She will be discharging after dialysis. No other changes at this time. Call light within reach.
[2020-08-08 12:27] VITALS: BP 156/62; PULSE 62; TEMP 98.5
--- NOTE | 2020-08-08 17:55 | NUR ---
Patient is discharging home. Discharge instruction discussed with patient. No questions verbalized. INT discontinued. Explained she has a medication to hop picker a the [facility]. She verbalized understanding. Copies of discharge instructions given to patient. All belongings packed up and sent with patient. Patient walke dout via wheel chair by Liborio BELLO.
[2021-01-11] MEDS ORDERED: AURYXIA1 GM PO (17:32)
[2021-01-22] MEDS ORDERED: PLAVIX 75MG TAB75 MG PO (16:42)
[2021-01-22] MEDS ORDERED: ULTRAM 50MG TAB50 MG PO (16:43)
[2021-01-22] MEDS ORDERED: TOPROL XL 25MG25 MG PO (16:43)
[2021-01-22] MEDS ORDERED: DEMADEX100 MG PO (16:45)
== END 2020-08-08 17:50 | disposition home or self-care (01) ==
LOC: COL.ER 09:24 → MEDICAL 10:40 → EDBEDREQTM 10:56 → MEDICAL 08-08 17:50
PROVIDERS: Emergency Medicine; ADMIT Internal Medicine Nephrology
DX: J96.21 Acute and chronic respiratory failure with hypoxia (principal); J18.9 Pneumonia, unspecified organism; I16.0 Hypertensive urgency; E11.22 Type 2 diabetes mellitus with diabetic chronic kidney disease; N18.6 End stage renal disease; D63.1 Anemia in chronic kidney disease; Z85.07 Personal history of malignant neoplasm of pancreas; G47.33 Obstructive sleep apnea (adult) (pediatric); E78.5 Hyperlipidemia, unspecified; Z99.2 Dependence on renal dialysis; I13.2 Hypertensive heart and chronic kidney disease with heart failure and with stage 5 chronic kidney disease, or end stage renal disease; I50.32 Chronic diastolic (congestive) heart failure; G89.29 Other chronic pain; M54.5 Low back pain; E21.3 Hyperparathyroidism, unspecified; Z90.5 Acquired absence of kidney; Z90.722 Acquired absence of ovaries, bilateral; Z79.82 Long term (current) use of aspirin; Z79.4 Long term (current) use of insulin; Z87.891 Personal history of nicotine dependence
CPT/HCPCS: A9503; G0378; J1644; J1815; J1956; J2930; J7030; Q5105

== ENCOUNTER 2020-10-02 21:24 | Inpatient (IN) | payer MEDICARE ==
[~2020-10-02] VITALS: Ht 160 cm; Wt 134.1 kg
[~2020-10-02 21:24] MED LIST changes: +LEVAQUIN 5500 MG/TA1 PO
[2020-10-02 21:57] LABS: HEMATOCRIT 37.5 % (37.0-47.0); HEMOGLOBIN 11.1 g/dl (12.5-16.0); MEAN CELL VOLUME 92 fl (80.0-100.0); MEAN CORPUSCULAR HEMOGLOBIN 27 pg (27.0-31.0); MEAN CORPUSCULAR HGB CONC 30 g/dl (33.0-37.0); MEAN PLATELET VOLUME 10.3 fl (7.4-10.4); PLATELET COUNT 186 K/mm3 (130-400); RED BLOOD COUNT 4.09 M/mm3 (4.10-5.30); REDCELL DISTRIBUTION WIDTH-CV 14.6 % (11.5-14.5)
[2020-10-02 22:04] LABS: ALBUMIN 4.2 gm/dL (3.5-5.0); C-REACTIVE PROTEIN 5.2 mg/dL (0.0-0.9); CALCIUM 9.3 mg/dL (8.4-10.2); CREATININE, serum 5.17 (0.52-1.25); POTASSIUM 3.6 mmol/L (3.4-5.0)
[2020-10-02 22:12] LABS: BAND 7 % (0-10); LYMPHOCYTE 4 % (20.0-51.0); NEUTROPHILS 89 % (42.0-75.2)
[2020-10-02 22:19] LABS: PLATELET ESTIMATE NORMAL (NORMAL)
[2020-10-03] VITALS (237 sets, daily range): BP systolic 91–164; BP diastolic 48–106; PULSE 62–118; TEMP 98–98.9; O2SAT 66–100
--- NOTE | 2020-10-03 00:55 | NUR ---
PATIENT ADMIT TO ROOM 342 VIA W/C WITH ER NURSE PRESENT. OXYGEN VIA NASAL CANNULA. DENIES CHEST PAIN/SOA AT THIS TIME. REPORT ABD PAIN TO RUQ AREA OF ABD.
[2020-10-03 06:30] LABS: HEMOGLOBIN 10.2 g/dl (12.5-16.0); MEAN CELL VOLUME 91 fl (80.0-100.0); MEAN CORPUSCULAR HEMOGLOBIN 27 pg (27.0-31.0); MEAN CORPUSCULAR HGB CONC 30 g/dl (33.0-37.0); MEAN PLATELET VOLUME 10.4 fl (7.4-10.4); PLATELET COUNT 136 K/mm3 (130-400); RED BLOOD COUNT 3.74 M/mm3 (4.10-5.30); REDCELL DISTRIBUTION WIDTH-CV 14.8 % (11.5-14.5)
[2020-10-03 06:42] LABS: ALBUMIN 3.7 gm/dL (3.5-5.0); BILIRUBIN,TOTAL 3.9 mg/dL (0.0-1.0); CREATININE, serum 5.98 (0.52-1.25); POTASSIUM 3.6 mmol/L (3.4-5.0); TOTAL PROTEIN 6.9 gm/dL (6.4-8.2)
[2020-10-03 06:46] LABS: HEMATOCRIT 34.2 % (37.0-47.0)
[2020-10-03 07:13] LABS: BAND 31 % (0-10); LYMPHOCYTE 2 % (20.0-51.0); NEUTROPHILS 64 % (42.0-75.2)
[2020-10-03 07:15] LABS: PLATELET ESTIMATE NORMAL (NORMAL)
[2020-10-03 07:17] LABS: HYPOCHROMIA 3+
--- NOTE | 2020-10-03 07:23 | NUR ---
CHANGE OF SHIFT REPORT GIVEN TO DAY SHIFT NURSEGABINO RN
--- NOTE | 2020-10-03 08:30 | NUR ---
PATIENT IS A&O. VSS. DENIES ANY COMPLAINTS. PATIENT RESTING UP IN BED ON LEFT SIDE. PATIENT REPORTS ABD PAIN IS BETTER THIS AM. PATIENT IS OBESE WITH SOFT ABD AND HYPO ACTIVE BOWL SOUNDS NOTED. NO C/O N/V. RIGHT AC IV TO INT. LEFT FORARM FISTULA WITH GOOD BRUITT & THRILL. PATIENT WILL GO TO DIALYSIS THIS AM. AM BS IS 240, GAVE SSI PER ORDERS. AM MEDS GIVEN. HEAD TO TOE ASSESSMENT COMPLETED.
--- NOTE | 2020-10-03 09:00 | NUR ---
PATIENT OFF FLOOR TO DIALYSIS
--- NOTE | 2020-10-03 09:21 | NUR ---
Initial visit; Patient states she is waiting for the Dr. The Physician that would do her likely Procedure is not available. Patient thanked Project Coach for visit and offering comfort and prayer.
--- NOTE | 2020-10-03 11:30 | NUR ---
NEPHROLOGY NOTIFIED NURSING THAT PATIENT HAS A TEMP OVER 99 AND IS SHIVERING IN DIALYSIS. AT BEDSIDE, SEE ORDERS.
--- NOTE | 2020-10-03 12:05 | NUR ---
DIALYSIS CALLED FOR ASSISTANCE STATING PATIENT'S CONDITION IS WORSENING. ЕЛЕНА WALLACE N.P., OTOLOGIST, PATIENT SCHEDULING COORDINATOR, ICU CHARGE NURSE, MYSELF AND MILLER HEAD AT BEDSIDE TO ASSIST. PATIENT IS RESPONDING BUT APPEARS TO BE BLUE AROUND HER NOSE/MOUTH, IS SHIVERING AND LETHARGIC. DIALYSIS NURSE REPORTS DIFFICULTY GETTING A SET OF VITALS. DIALYSIS WAS STOPPED PER . SEE NEW ORDERS.
--- NOTE | 2020-10-03 12:09 | NUR ---
1130 HD tx dc'd 44 mins early. Patient became cyanotic unable to get Sat O2 or Bp with patient shivering, temp 99.3. Patient A&O. Dr. Romano & Nurse Trina present whom called RT then CAT. Cristopher RN, Lisa CUSTOMER DEVELOPMENT MANAGER & Aliya RT present while returning the patient's blood without any issues. Sat O2 97% with O2 @ 4L. 1148 Bp 138/73, HR 137. 1201 Nurse Lana & Nurse Aidleny Duong present & patient transferred via bed to ICU.
--- NOTE | 2020-10-03 12:10 | NUR ---
PATIENT GOING DOWN TO ICU FROM DIALYSIS. REPORT GIVEN TO ICU NURSE. & AGREED ON TRANSFERING PATIENT TO [facility] THE FEVER MIGHT BE FROM THE STENT AND IT NEEDS REPLACED. PLAN IS TO TRANSFER PATIENT FROM ICU TO [facility] WHEN A BED IS AVAILABLE.
--- NOTE | 2020-10-03 12:43 | NUR ---
PT down to ICU 1206 after responding to a call up to the dialysis room. PT is able to answer all orientation questions. lung sounds are clear. Strong pulses bilaterally. Bowel sounds are active. Dr. Romano will be in to re-evaluate PT after receiving antibiotics.
--- NOTE | 2020-10-03 14:13 | NUR ---
Sample Examiner notified that patient transferred down to ICU. Per progress notes, patient to be transferred to [facility].
[2020-10-03 15:23] LABS: COLLECTION METHOD CLEAN CATCH
[2020-10-03 15:51] LABS: AMORPHOUS CRYSTAL Present /uL; MUCOUS Present /lpf; PH 5 (5-8); SQUAMOUS EPITHELIAL 20-50 /hpf; URINE APPEARANCE Turbid; URINE BACTERIA Moderate /hpf; URINE BILIRUBIN Negative (NEGATIVE); URINE BLOOD 1+ (NEGATIVE); URINE COLOR Amber; URINE GLUCOSE 1+ (NEGATIVE); URINE KETONE Negative (NEGATIVE); URINE LEUKOCYTE ESTERASE Trace (NEGATIVE); URINE NITRATE Negative (NEGATIVE); URINE PROTEIN(semi-quant) 3+ (NEGATIVE); URINE RBC 20-50 /hpf; URINE UROBILINOGEN >=4.0 mg/dL (NEGATIVE)
--- NOTE | 2020-10-03 19:50 | NUR ---
Assessment complete and charted. Denies needs. Call light in reach. Awaiting EMS for transfer.
--- NOTE | 2020-10-03 20:30 | NUR ---
Report given to EMS. Patient transferred at this time.
[2021-01-11] MEDS ORDERED: AURYXIA1 GM PO (17:32)
[2021-01-22] MEDS ORDERED: PLAVIX 75MG TAB75 MG PO (16:42)
[2021-01-22] MEDS ORDERED: TOPROL XL 25MG25 MG PO (16:43)
[2021-01-22] MEDS ORDERED: ULTRAM 50MG TAB50 MG PO (16:43)
[2021-01-22] MEDS ORDERED: DEMADEX100 MG PO (16:45)
== END 2020-10-03 20:30 | disposition short-term general hospital (02) | DRG 444 ==
LOC: COL.ER 21:24 → ICU 23:22 → SURG 23:22 → ICU 10-03 12:01
PROVIDERS: Emergency Medicine; ADMIT Internal Medicine Nephrology
PROC: 5A1D70Z Performance of Urinary Filtration, Intermittent, Less than 6 Hours Per Day (ICD-10-PCS; principal; 2020-10-03)
DX: K83.1 Obstruction of bile duct (principal); N18.6 End stage renal disease; J96.01 Acute respiratory failure with hypoxia; J96.02 Acute respiratory failure with hypercapnia; I13.2 Hypertensive heart and chronic kidney disease with heart failure and with stage 5 chronic kidney disease, or end stage renal disease; I50.32 Chronic diastolic (congestive) heart failure; C64.9 Malignant neoplasm of unspecified kidney, except renal pelvis; C78.7 Secondary malignant neoplasm of liver and intrahepatic bile duct; C78.89 Secondary malignant neoplasm of other digestive organs; Z68.43 Body mass index [BMI] 50.0-59.9, adult; R50.9 Fever, unspecified; J44.9 Chronic obstructive pulmonary disease, unspecified; G47.30 Sleep apnea, unspecified; E66.01 Morbid (severe) obesity due to excess calories; E78.5 Hyperlipidemia, unspecified; Z99.2 Dependence on renal dialysis; Z99.81 Dependence on supplemental oxygen; Z87.891 Personal history of nicotine dependence; Z79.4 Long term (current) use of insulin
CPT/HCPCS: J1815; J2270; J2405; J2543; J3370; J7050; Q5105; Q9967

== ENCOUNTER 2020-11-20 13:08 | Emergency (ER) | payer MEDICARE ==
[~2020-11-20] VITALS: Ht 162.6 cm; Wt 130.9 kg
[2020-11-20 13:10] VITALS: TEMP 98.3
[2020-11-20 14:42] LABS: BASO % 0.4 % (0.0-2.0); EOS # 0.2 (0.0-0.7); EOS % 1.9 % (0-4.0); GRAN # 4.7 (1.4-6.5); GRAN % 58.1 % (42.2-75.2); LYMPH # 2.6 (1.2-3.4); LYMPH % 32.4 % (20.0-51.0); MEAN CELL VOLUME 93 fl (80.0-100.0); MEAN CORPUSCULAR HEMOGLOBIN 28 pg (27.0-31.0); MEAN CORPUSCULAR HGB CONC 30 g/dl (33.0-37.0); MEAN PLATELET VOLUME 10.7 fl (7.4-10.4); MONO # 0.5 (0.1-0.6); MONO % 6.5 % (1.7-9.3); PLATELET COUNT 175 K/mm3 (130-400); RED BLOOD COUNT 3.97 M/mm3 (4.10-5.30); REDCELL DISTRIBUTION WIDTH-CV 14.9 % (11.5-14.5)
[2020-11-20 14:44] LABS: HEMATOCRIT 36.8 % (37.0-47.0)
[2020-11-20 15:52] LABS: ALBUMIN 3.7 gm/dL (3.5-5.0); BILIRUBIN,TOTAL 0.6 mg/dL (0.0-1.0); C-REACTIVE PROTEIN 2.5 mg/dL (0.0-0.9); CALCIUM 8.9 mg/dL (8.4-10.2); TOTAL PROTEIN 7.1 gm/dL (6.4-8.2)
[2020-11-20 17:38] VITALS: BP 136/98; PULSE 78
[2021-01-11] MEDS ORDERED: AURYXIA1 GM PO (17:32)
[2021-01-22] MEDS ORDERED: PLAVIX 75MG TAB75 MG PO (16:42)
[2021-01-22] MEDS ORDERED: ULTRAM 50MG TAB50 MG PO (16:43)
[2021-01-22] MEDS ORDERED: TOPROL XL 25MG25 MG PO (16:43)
[2021-01-22] MEDS ORDERED: DEMADEX100 MG PO (16:45)
== END 2020-11-20 17:42 | disposition home or self-care (01) ==
LOC: COL.ER 13:08
PROVIDERS: Emergency Medicine
DX: R06.02 Shortness of breath (principal); I12.0 Hypertensive chronic kidney disease with stage 5 chronic kidney disease or end stage renal disease; J44.9 Chronic obstructive pulmonary disease, unspecified; E11.22 Type 2 diabetes mellitus with diabetic chronic kidney disease; Z99.2 Dependence on renal dialysis; Z79.899 Other long term (current) drug therapy; Z79.51 Long term (current) use of inhaled steroids; Z79.4 Long term (current) use of insulin

== ENCOUNTER 2021-01-22 16:54 | Inpatient (IN) | payer MEDICARE ==
[~2021-01-22] VITALS: Ht 162.6 cm; Wt 122.2 kg
[~2021-01-22 16:54] MED LIST changes: +ULTRAM 50MG TAB50 MG PO
[2021-01-22 19:53] VITALS: BP 127/46; PULSE 71; TEMP 97.9
[2021-01-23 05:16] VITALS: BP 146/61; PULSE 71; TEMP 98.7
--- NOTE | 2021-01-23 07:41 | NUR ---
CHANGE OF SHIFT REPORT GIVEN TO DAY SHIFT NURSE, ADALGISA MENESES.
--- NOTE | 2021-01-23 14:41 | NUR ---
Patient has completed all therapies for the day and is resting in the recliner. Call light and bedside table are within reach.
--- NOTE | 2021-01-23 14:46 | NUR ---
SW met with the patient to complete intake, as the patient is new to [facility]. The patient lives alone in [place]. Her daughter, Maria Antonia (ph#[phone]), lives across the [place] from her. She reports independence with ADLs and has a cane, walker, home oxygen, and home trilogy from [facility]. The patient's PCP is Dr. Raimundo Vanegas and she receives her medications from [place] [facility]. She reports no difficulties obtainining her meds. The patient's DPOA-HC is in EMR and it designates her daughter, Sophia (ph#[phone]). Sophia lives in [place]. The patient reports that therapy is going well so far. SW to continue to follow.
--- NOTE | 2021-01-23 16:45 | NUR ---
Patient has cleared the room and taken all belongings with him. Patient was given appropriate paperwork to take to his appointment. Patient was escorted out in a wheelchair by ZAIRA Aguilar. Patient has taken all belongings with him
[2021-01-23 17:00] VITALS: BP 142/57; PULSE 67; TEMP 98.1
--- NOTE | 2021-01-23 21:00 | NUR ---
PT REPORTS PAIN MED GIVEN EARLIER TAKING EDGE OF RT SHOULDER PAIN. REVIEWED XRAY RESULTS NEGATIVE. PT ABLE TO MOVE SELF AROUND IN BED. USIMG BIPAP WITH O2 AT HS. NO NEEDS AT THIS TIME. CALL LIGHT IN REACH. BED ALARM SET.
[2021-01-24 03:37] VITALS: BP 144/68; PULSE 72; TEMP 96.7
--- NOTE | 2021-01-24 08:00 | NUR ---
PATIENT IS A&O. VSS. DENIES PAIN OR NAUSEA. BREAKFAST TRAY AT BEDSIDE. AM BS WAS 168. AM MEDS GIVEN. HEAD TO TOE ASSESSMENT COMPLETE, SEE CHARTING. NO OTHER NEEDS AT THIS TIME. PATIENT TO START THERAPY SOON
--- NOTE | 2021-01-24 14:00 | NUR ---
PATIENT GOING TO DIALYSIS AFTER THERAPY
[2021-01-24 15:04] LABS: BASO % 0.5 % (0.0-2.0); EOS # 0.1 (0.0-0.7); EOS % 1.6 % (0-4.0); GRAN # 5.7 (1.4-6.5); GRAN % 70.2 % (42.2-75.2); HEMOGLOBIN 11.2 g/dl (12.5-16.0); LYMPH # 1.6 (1.2-3.4); LYMPH % 19.6 % (20.0-51.0); MEAN CELL VOLUME 87 fl (80.0-100.0); MEAN CORPUSCULAR HEMOGLOBIN 28 pg (27.0-31.0); MEAN CORPUSCULAR HGB CONC 32 g/dl (33.0-37.0); MEAN PLATELET VOLUME 10.1 fl (7.4-10.4); MONO # 0.6 (0.1-0.6); MONO % 7.6 % (1.7-9.3); PLATELET COUNT 227 K/mm3 (130-400); RED BLOOD COUNT 4.03 M/mm3 (4.10-5.30); REDCELL DISTRIBUTION WIDTH-CV 13.7 % (11.5-14.5)
[2021-01-24 15:19] LABS: HEMATOCRIT 35.2 % (37.0-47.0)
[2021-01-24 15:27] LABS: ALBUMIN 3.1 gm/dL (3.5-5.0); CALCIUM 9.5 mg/dL (8.4-10.2); CREATININE, serum 7.5 mg/dL (0.57-1.11); PHOSPHOROUS 5.7 mg/dL (2.3-4.7)
[2021-01-24 15:36] LABS: POTASSIUM 5.8 mmol/L (3.5-4.5)
--- NOTE | 2021-01-24 17:00 | NUR ---
PATIENT STILL IN DIALYSIS
[2021-01-24 18:10] VITALS: BP 124/60; PULSE 70; TEMP 98.4
--- NOTE | 2021-01-24 18:11 | NUR ---
PATIENT C/O LEFT FOOT PAIN & DC'D HD TX 12 MINS EARLY. REMOVED 2.7L OF FLUID. NEXT HD TX PLANNED FOR Wednesday01/27/21 AFTER THERAPIES & LUNCH.
[2021-01-25 05:39] VITALS: BP 125/63; PULSE 74; TEMP 98
--- NOTE | 2021-01-25 06:59 | NUR ---
Received report from ZAIRA Malave. Patient is sleeping in bed. Call light and bedside table are within reach. Will continue to monitor patient throughout shift.
--- NOTE | 2021-01-25 12:15 | NUR ---
Patient has finished all therapies for the day and is resting comfortable in recliner. Patient states pain is 3/10 but refuses pain medication at this time. Call light and bedside table are within reach.
[2021-01-25 16:34] VITALS: BP 128/57; PULSE 66; TEMP 97.6
--- NOTE | 2021-01-25 23:29 | NUR ---
Patient alert and oriented. Patient reports having some pain 4/10 to her lower back area. PRN pain med given per MAR. Patient denies SOB, N/V or diaarrhea. All scheduled meds given. Call light in reach. Will continue to monitor.
[2021-01-26 04:15] VITALS: BP 137/49; PULSE 57; TEMP 98
--- NOTE | 2021-01-26 06:53 | NUR ---
Report received from ZAIRA Henry. Patient is sleeping in bed with BiPap machine on. Call light and bedside table are within reach. Will continue to monitor patient throughout shift.
--- NOTE | 2021-01-26 12:32 | NUR ---
Patient's was at bedside and signed paperwork for patient. All of patient's personal belongings have been packed by the . Patient escorted by ZAIRA Aguilar and put in car and seatbelted.
--- NOTE | 2021-01-26 12:40 | NUR ---
Patient's daughter is at bedside
[2021-01-26 17:58] VITALS: BP 133/63; PULSE 68; TEMP 98.2
--- NOTE | 2021-01-26 19:15 | NUR ---
RECEIVED CHANGE OF SHIFT REPORT FROM DAY SHIFT NURSE. EXIT ALARMS ON WHEN UP IN CHAIR OR IN BED WITH CALL LIGHT WITHIN REACH. DENIES ANY NEEDS DURING REPORT.
[2021-01-27 04:49] VITALS: BP 134/59; PULSE 68; TEMP 97.1
[2021-01-27 05:25] LABS: COLLECTION METHOD CLEAN CATCH
[2021-01-27 05:33] LABS: PH 5 (5-8); URINE APPEARANCE Cloudy; URINE BACTERIA Rare /hpf; URINE BILIRUBIN Negative (NEGATIVE); URINE BLOOD 1+ (NEGATIVE); URINE COLOR Yellow; URINE GLUCOSE Negative (NEGATIVE); URINE KETONE Negative (NEGATIVE); URINE LEUKOCYTE ESTERASE 3+ (NEGATIVE); URINE NITRATE Negative (NEGATIVE); URINE PROTEIN(semi-quant) 2+ (NEGATIVE); URINE UROBILINOGEN Negative (NEGATIVE)
--- NOTE | 2021-01-27 07:22 | NUR ---
CHANGE OF SHIFT REPORT GIVEN TO DAY SHIFT NURSE, YENY MENESES.
--- NOTE | 2021-01-27 10:06 | NUR ---
SW met with the patient to follow up after the weekend. The patient states that she is tired. She just got done with therapy and has another session in 15 minutes. She states that her daughter was upset, because she was unable to come up and visit her, due to the other sister being the designated visitor. SW provided support. SW to continue to follow.
[2021-01-27 13:09] LABS: BASO % 0.4 % (0.0-2.0); EOS # 0.1 (0.0-0.7); EOS % 1.3 % (0-4.0); GRAN # 5.6 (1.4-6.5); GRAN % 68.9 % (42.2-75.2); LYMPH # 1.7 (1.2-3.4); LYMPH % 20.3 % (20.0-51.0); MEAN CELL VOLUME 89 fl (80.0-100.0); MEAN CORPUSCULAR HEMOGLOBIN 28 pg (27.0-31.0); MEAN CORPUSCULAR HGB CONC 32 g/dl (33.0-37.0); MEAN PLATELET VOLUME 10.2 fl (7.4-10.4); MONO # 0.7 (0.1-0.6); MONO % 8.4 % (1.7-9.3); PLATELET COUNT 215 K/mm3 (130-400); RED BLOOD COUNT 3.91 M/mm3 (4.10-5.30); REDCELL DISTRIBUTION WIDTH-CV 13.8 % (11.5-14.5)
[2021-01-27 13:26] LABS: ALBUMIN 3.2 gm/dL (3.5-5.0); CALCIUM 9.2 mg/dL (8.4-10.2); CREATININE, serum 8.06 mg/dL (0.57-1.11); PHOSPHOROUS 5.8 mg/dL (2.3-4.7); POTASSIUM 5.4 mmol/L (3.5-4.5)
[2021-01-27 13:32] LABS: HEMATOCRIT 34.7 % (37.0-47.0)
--- NOTE | 2021-01-27 15:49 | NUR ---
Patient tolerated HD tx with 2.7L fluid removal, attempted 3L off with patient c/o lightheadedness & resolved with decreased UFR. Next HD tx planned on Wednesday01/29/21 @ 1230.
[2021-01-27 15:51] VITALS: BP 105/775; PULSE 79; TEMP 97.6
[2021-01-27 17:52] VITALS: BP 97/44; PULSE 70; TEMP 98
--- NOTE | 2021-01-27 18:43 | NUR ---
RECEIVED CHANGE OF SHIFT REPORT FROM DAY SHIFT NURSE.
--- NOTE | 2021-01-27 18:47 | NUR ---
Patient did well today. She stayed up in the chair all day. She went to dialysis this afternoon. No complaints of pain. IV started to right wrist for her IV antibiotic. No other changes at this time. Call light within reach.
--- NOTE | 2021-01-27 19:31 | NUR ---
PATIENT UP IN CHAIR WITH NO COMPLAINTS AT THIS TIME. DENIES CHEST PAIN/SOA WELL DENIES NUMBNESS/TINGLING TO EXTREMITIES AT THIS TIME. EXIT ALARMS ON WHEN UP IN CHAIR OR IN BED WITH CALL LIGHT WITHIN REACH.
[2021-01-27 20:55] VITALS: BP 147/61
--- NOTE | 2021-01-28 01:38 | NUR ---
PATIENT SLEEPING AND DOES NOT WAKE WHEN ROOM IS ENTERED BY STAFF ON NURSING ROUNDS. OBSERVED BiPAP ON WITH OXYGEN BLEED IN. BREATHING NONLABORED AND EVEN. CALL LIGHT WITHIN REACH.
[2021-01-28 04:47] VITALS: BP 119/55; PULSE 73; TEMP 97.6
--- NOTE | 2021-01-28 06:49 | NUR ---
CHANGE OF SHIFT REPORT GIVEN TO DAY SHIFT NURSE, YOLY MENESES.
--- NOTE | 2021-01-28 09:50 | NUR ---
PT UP TO RECLINER FOR BREAKFAST THEN OUT TO THERAPY WITH PT. PT DENIES NEEDS THIS AM. ASSESSMENTS COMPLETE, VSS. PT FULLY PARTICIPATING IN THEARPIES.
--- NOTE | 2021-01-28 13:20 | NUR ---
Admission QIM scores were reviewed by the team. Code of 3 chosen for toilet hygiene was determined by team discussion to be the most usual performance for this patient during the assessment period. Code of 3 chosen for toileting transfers was determined by team discussion to be the most usual performance for this patient during the assessment period. Code of 3 chosen for Shower/Bathe self was determined by team discussion to be the most usual performance for this patient during the assessment period. Code of 3 chosen for upper body dressing was determined by team discussion to be the most usual performance for this patient during the assessment period. Code of 4 chosen for putting on/taking off footwear was determined by team discussion to be the most usual performance for this patient during the assessment period. Code of 4 for sit to stand was determined by team discussion to be the most usual performance for this patient during the assessment period. Code of 3 for chair/bed to chair transfers was determined by team discussion to be the most usual performance for this patient during the assessment period. Code of 3 chosen for walk 10 feet was determined by team discussion to be the most usual performance for this patient during the assessment period.--Kristy Carr, PD
[2021-01-28 17:10] VITALS: BP 123/51; PULSE 72; TEMP 98.1
--- NOTE | 2021-01-28 18:29 | NUR ---
REPORT TO MICHAEL HURTADO
--- NOTE | 2021-01-28 19:00 | NUR ---
RECEIVED CHANGE OF SHIFT REPORT FROM DAY SHIFT NURSE.
--- NOTE | 2021-01-28 21:00 | NUR ---
PATIENT DENIES CHEST PAIN/SOA/NAUSEA AT THIS TIME. DENIES NUMBNESS/TINGLING TO EXTREMITIES AT THIS TIME. EXIT ALARMS ON WHEN IN BED WITH CALL LIGHT WITHIN REACH. CONTINUES REFUSAL TO WEAR SCDs TO BLE. REPORTED APPLIED ECZEMA CREAM TO BLE EARLIER AND DID NOT WANT IT TO BE APPLIED TO BLE AT THIS TIME. REPORTED WOULD APPLY NYSTATIN OINTMENT TO MOE BREAST FOLDS AND PANIS FOLD PER SELF, REPORTED SHE APPLIED THE OINTMENT EARLIER TO PROBLEM AREAS.
[2021-01-29 05:43] VITALS: BP 135/52; PULSE 64; TEMP 98.1
--- NOTE | 2021-01-29 07:27 | NUR ---
CHANGE OF SHIFT REPORT GIVEN TO DAY SHIFT NURSE, ADALGISA MENESES.
[2021-01-29 14:20] LABS: BASO % 0.5 % (0.0-2.0); EOS # 0.1 (0.0-0.7); EOS % 1.5 % (0-4.0); GRAN # 4.9 (1.4-6.5); HEMOGLOBIN 10.8 g/dl (12.5-16.0); LYMPH # 2.1 (1.2-3.4); LYMPH % 26.4 % (20.0-51.0); MEAN CELL VOLUME 89 fl (80.0-100.0); MEAN CORPUSCULAR HEMOGLOBIN 28 pg (27.0-31.0); MEAN CORPUSCULAR HGB CONC 31 g/dl (33.0-37.0); MEAN PLATELET VOLUME 10.2 fl (7.4-10.4); MONO # 0.7 (0.1-0.6); MONO % 8.6 % (1.7-9.3); PLATELET COUNT 195 K/mm3 (130-400); RED BLOOD COUNT 3.92 M/mm3 (4.10-5.30); REDCELL DISTRIBUTION WIDTH-CV 13.9 % (11.5-14.5)
[2021-01-29 14:37] LABS: ALBUMIN 3.1 gm/dL (3.5-5.0); CALCIUM 9.4 mg/dL (8.4-10.2); CREATININE, serum 7.8 mg/dL (0.57-1.11); PHOSPHOROUS 5.8 mg/dL (2.3-4.7); POTASSIUM 5.3 mmol/L (3.5-4.5)
--- NOTE | 2021-01-29 16:24 | NUR ---
The patient is in dialysis. SW attempted to contact the patient's daughter, Sophia. SW left her a voicemail. LEANDRO then contacted the patient's other daughter, Anjana, and reviewed the IPR Team Conference Note with her. The patient had made minimal gains and seems to be plateuing with therapy. The team is recommending SNF upon discharge. The patient's dialysis chair time prior to IPR, was T//. A barrier to SNF has been the patient's chair time, due to transportation. Dr. Bryanros to be notified of the recommendation for SNF and to see if the patient's chair time can be changed. LEANDRO reviewed the above with Anjana. Anjana is in agreement to SNF and open to the facilities in [place]. She states that her sister works at [facility] and feels like SNF is appropriate for the patient. SW to fax referrals to the local facilities.
[2021-01-29 17:13] VITALS: BP 131/76; PULSE 88; TEMP 97.9
--- NOTE | 2021-01-29 17:14 | NUR ---
PATIENT TOLERATED HD TX WITH 2.5 L FLUID REMOVAL. NEXT PLANNED HD TX ON Wednesday01/31/21 @ 1230.
--- NOTE | 2021-01-29 22:30 | NUR ---
ALERT AND OX4. DENIES SOA, CHEST PAIN OR DIZZY. PAIN IN RT SHOULDER TRAMDOL GIVEN ALONG W PM MEDS. BS TREATED PER SLIDING SCALE. PLAN OF CARE DISCUSSED. LIGHTS DOWN. CALL LIGHT WITHIN REACH.
[2021-01-30 03:56] VITALS: BP 160/59; PULSE 77; TEMP 98
--- NOTE | 2021-01-30 06:30 | NUR ---
Report received from ZAIRA Pro. Patient is sleeping in bed. Call light and bedside table are within reach. Will continue to monitor patient throughout shift
--- NOTE | 2021-01-30 13:14 | NUR ---
Follow-up visit; Patient thanked Baffle Mounter for offering encouragement and God's blessings.
--- NOTE | 2021-01-30 16:28 | NUR ---
LEANDRO met with the patient to review the team's recommendation for SNF and a discharge next Wednesday, 02/04. The patient is in agreement with the plan and states that she would prefer [facility]. LEANDRO contacted and faxed referrals to [facility], [facility], and [facility]. Awaiting screens.
[2021-01-30 18:30] VITALS: BP 113/57; PULSE 75; TEMP 99.4
[2021-01-31 06:18] VITALS: BP 126/45; PULSE 68; TEMP 97.6
--- NOTE | 2021-01-31 06:28 | NUR ---
ASSISTED PT TO BR THEN TO RECLINER. PT VERY UNSTEADY. LT KNEE MARGIE. CALL LIGHT IN REACH.
--- NOTE | 2021-01-31 09:02 | NUR ---
Vi, at [facility], reports that they have declined the patient.
--- NOTE | 2021-01-31 09:23 | NUR ---
PATIENT IS ALERT AND ORIENTED X4. PATIENT HAS LEFT ARM FISTULA.PATIENT IS ON ACCUCHECK AND DIALYSIS DIET. PATIENT ON 1500CC FLUID RESTRICTION. PATIENT UP WITH THERAPY THIS MORNING. AND NOW SHOWERING WITH OT. PATIENT WEARS BIPAP AT NIGHT. PATIENT DENIES PAIN OR FURTHER NEEDS AT THIS TIME. CALL LIGHT WITHIN REACH. HEAD TO TOE ASSESSMENT COMPLETE.
[2021-01-31 13:13] LABS: BASO % 0.3 % (0.0-2.0); EOS # 0.1 (0.0-0.7); EOS % 1.4 % (0-4.0); GRAN # 6.2 (1.4-6.5); GRAN % 65.5 % (42.2-75.2); HEMOGLOBIN 11.1 g/dl (12.5-16.0); LYMPH # 2.3 (1.2-3.4); LYMPH % 24.4 % (20.0-51.0); MEAN CELL VOLUME 89 fl (80.0-100.0); MEAN CORPUSCULAR HEMOGLOBIN 28 pg (27.0-31.0); MEAN CORPUSCULAR HGB CONC 32 g/dl (33.0-37.0); MEAN PLATELET VOLUME 10.1 fl (7.4-10.4); MONO # 0.7 (0.1-0.6); MONO % 7.6 % (1.7-9.3); PLATELET COUNT 198 K/mm3 (130-400); RED BLOOD COUNT 3.97 M/mm3 (4.10-5.30); REDCELL DISTRIBUTION WIDTH-CV 13.8 % (11.5-14.5)
[2021-01-31 13:15] LABS: HEMATOCRIT 35.2 % (37.0-47.0)
[2021-01-31 13:24] LABS: ALBUMIN 3.2 gm/dL (3.5-5.0); CALCIUM 9.3 mg/dL (8.4-10.2); CREATININE, serum 8.12 mg/dL (0.57-1.11); PHOSPHOROUS 6.5 mg/dL (2.3-4.7); POTASSIUM 4.8 mmol/L (3.5-4.5)
--- NOTE | 2021-01-31 15:30 | NUR ---
LEANDRO contacted [facility] at [facility] to follow up on referral and if they can transport the patient to dialysis with her current chair time. Kailey reports that they should be able to take the patient, but will just need to get auth from the patient's insurance. Ka[facility] reports that they would be able to transport the patient to dialysis on .
[2021-01-31 15:55] VITALS: BP 141/76; PULSE 77; TEMP 98.6
--- NOTE | 2021-01-31 15:55 | NUR ---
Patient tolerated her HD tx with 2.3L fluid removal. Next planned HD tx on Wednesday02/03/21 @ 1230.
--- NOTE | 2021-01-31 21:00 | NUR ---
PT RESTING IN BED. NO DISTRESS. WATCHING TV. NO NEEDS AT THIS TIME. USE BIPAP AT HS WITH O2. CALL LIGHT IN REACH. BED ALARM SET.
[2021-02-01 05:07] VITALS: BP 113/62; PULSE 84; TEMP 97.6
--- NOTE | 2021-02-01 07:24 | NUR ---
Report received by ZAIRA Amaya. Patient is sleeping in bed. Call light and bedside table are within reach. Will continue to monitor patient throughout shift.
--- NOTE | 2021-02-01 08:15 | NUR ---
Patient refuses to put mobilizer back on. Will continue to monitor throughout shift.
--- NOTE | 2021-02-01 11:00 | NUR ---
Patient has completed all therapies for the day and is requesting in recliner. Call light and bed.side table are within reach
[2021-02-01 17:48] VITALS: BP 109/45; PULSE 68; TEMP 97.8
[2021-02-02 05:41] VITALS: BP 131/51; PULSE 71; TEMP 98
--- NOTE | 2021-02-02 06:43 | NUR ---
Report received by ZAIRA Amaya. Patient is sleeping in bed. Call light and bedside table are within reach. Will continue to monitor patient throughout shift.
--- NOTE | 2021-02-02 17:08 | NUR ---
Patient's daughter is at bedside with her mother. Patient denies needing anything at this time. Call light and bedside table are within reach.
[2021-02-02 17:52] VITALS: BP 119/55; PULSE 72; TEMP 97.7
--- NOTE | 2021-02-02 20:14 | NUR ---
PT RESTING IN BED. NO DISTRESS. NO NEEDS AT THIS TIME. SEE SHIFT ASSESSMENT. CALL LIGHT IN REACH. BED ALARMSET.
--- NOTE | 2021-02-02 20:15 | NUR ---
PT NONCOMPLIANT WITH ADA. HAS COOKIES AND CHEESE-ITS.
[2021-02-03 05:38] VITALS: BP 129/64; PULSE 71; TEMP 98.3
--- NOTE | 2021-02-03 08:00 | NUR ---
Assessment completed, alert/oriented, vital signs stable, fsbs WNL, denies pain or discomfort, reports she "feels weak in the mornings", she has been up to the bathroom and now in to the chair for breakfast, redness noted under skin folds/ nystatin cream is being applied, AV fistula to right arm has strong pulse / + bruit and thrill, she is dressed and ready to start PT/OT this morning, denies other needs or concerns at this time
--- NOTE | 2021-02-03 13:24 | NUR ---
Patient going to dialysis at this time
[2021-02-03 13:44] LABS: BASO % 0.4 % (0.0-2.0); EOS # 0.1 (0.0-0.7); EOS % 1.2 % (0-4.0); GRAN # 6.3 (1.4-6.5); GRAN % 69.1 % (42.2-75.2); HEMOGLOBIN 10.8 g/dl (12.5-16.0); LYMPH # 1.8 (1.2-3.4); LYMPH % 19.6 % (20.0-51.0); MEAN CELL VOLUME 88 fl (80.0-100.0); MEAN CORPUSCULAR HEMOGLOBIN 28 pg (27.0-31.0); MEAN CORPUSCULAR HGB CONC 32 g/dl (33.0-37.0); MEAN PLATELET VOLUME 10.5 fl (7.4-10.4); MONO # 0.8 (0.1-0.6); MONO % 8.7 % (1.7-9.3); PLATELET COUNT 182 K/mm3 (130-400); RED BLOOD COUNT 3.86 M/mm3 (4.10-5.30)
[2021-02-03 13:46] LABS: HEMATOCRIT 34.1 % (37.0-47.0)
[2021-02-03 13:47] LABS: ALBUMIN 3.1 gm/dL (3.5-5.0); CALCIUM 9.1 mg/dL (8.4-10.2); CREATININE, serum 9.37 mg/dL (0.57-1.11); PHOSPHOROUS 6.2 mg/dL (2.3-4.7); POTASSIUM 5.1 mmol/L (3.5-4.5)
--- NOTE | 2021-02-03 15:15 | NUR ---
Spoke with Kailey at [facility] and they are still waiting to hear back from insurance on authorization.
--- NOTE | 2021-02-03 15:41 | NUR ---
PATIENT TOLERATED HD TX WITH 2 L FLUID REMOVAL. NEXT PLANNED HD TX Wednesday02/04/21 @ [facility].
[2021-02-03 15:47] VITALS: BP 125/71; PULSE 79; TEMP 97.9
--- NOTE | 2021-02-03 22:19 | NUR ---
ALERT AND OX4. SETTING UP IN CHAIR WATCHING TV. STAND AND PIVOT W WALKER TO BED. PM MEDS GIVEN ALONG W PRN TRAMADOL FOR BACK PAIN. BLOOD SUGAR TX PER SLIDING SCALE. CALL LIGHT WI REACH. NEEDS MET.
[2021-02-04 04:25] VITALS: BP 129/55; PULSE 81; TEMP 98.1
--- NOTE | 2021-02-04 04:27 | NUR ---
RESTED THROUGH THE NIGHT WITHOUT INCIDENT. NEEDS ARE MET. CALL LIGHT WI REACH.
--- NOTE | 2021-02-04 07:00 | NUR ---
Pt laying in bed waiting for breakfast to arrive. Denies any needs at this time. Will return for assessment. Plan is for patient to discharge to [facility] today. No other concerns.
[2021-02-04 10:46] LABS: BASO % 0.3 % (0.0-2.0); EOS # 0.1 (0.0-0.7); GRAN # 6.5 (1.4-6.5); GRAN % 72.7 % (42.2-75.2); HEMOGLOBIN 10.8 g/dl (12.5-16.0); LYMPH # 1.5 (1.2-3.4); LYMPH % 16.3 % (20.0-51.0); MEAN CELL VOLUME 90 fl (80.0-100.0); MEAN CORPUSCULAR HEMOGLOBIN 27 pg (27.0-31.0); MEAN CORPUSCULAR HGB CONC 31 g/dl (33.0-37.0); MEAN PLATELET VOLUME 11.4 fl (7.4-10.4); MONO # 0.8 (0.1-0.6); MONO % 8.7 % (1.7-9.3); PLATELET COUNT 182 K/mm3 (130-400); RED BLOOD COUNT 3.94 M/mm3 (4.10-5.30); REDCELL DISTRIBUTION WIDTH-CV 14.1 % (11.5-14.5)
[2021-02-04 10:49] LABS: HEMATOCRIT 35.3 % (37.0-47.0)
[2021-02-04 11:05] LABS: ALBUMIN 3.1 gm/dL (3.5-5.0); CALCIUM 9.1 mg/dL (8.4-10.2); CREATININE, serum 6.83 mg/dL (0.57-1.11); PHOSPHOROUS 5.1 mg/dL (2.3-4.7); POTASSIUM 4.5 mmol/L (3.5-4.5)
[2021-02-04] MEDS ORDERED: COLACE 100100 MG/CAP PO (11:10)
[2021-02-04] MEDS ORDERED: DULCOLAX S10 MG/SUPP RC (11:10)
[2021-02-04] MEDS ORDERED: LEVEMIR100 U/ML SQ (11:13)
[2021-02-04] MEDS ORDERED: NOVLOG SQ (11:13)
[2021-02-04 11:54] VITALS: BP 132/68; PULSE 80; TEMP 97.6
--- NOTE | 2021-02-04 11:55 | NUR ---
PATIENT VOMITED 100 ML OF GREENISH LIQUID EMESIS DURING LAST 25 MINS OF HD TX WITH UF OFF. RESOLVED WITH 100 MLL FLUID BOLUS GIVEN. REMOVED 1.26 L OF FLUID TODAY. NEXT PLANNED HD TX ON Wednesday02/06/21 @ [facility].
[2021-02-04 12:38] VITALS: BP 132/68; PULSE 80; TEMP 97.6
--- NOTE | 2021-02-04 13:08 | NUR ---
Discharge QIM scores were reviewed by the team. Code of 6 chosen for shower/bathe self was determined by team discussion to be the most usual performance for this patient during the assessment period. Code of 4 chosen for lower body dressing was determined by team discussion to be the most usual performance for this patient during the assessment period. Code of 6 chosen for sit to lying was determined by team discussion to be the most usual performance for this patient during the assessment period. Code of 3 chosen for lying to sitting on side of bed was determined by team discussion to be the most usual performance for this patient during the assessment period.--Kristy Carr,
[2021-02-04] MEDS ORDERED: ULTRAM 50MG TAB50 MG PO ×3 (13:25→13:27)
--- NOTE | 2021-02-04 13:40 | NUR ---
Kailey, at [facility], reports that they got auth from the patient's insurance and that they are able to accept her today. LEANDRO updated the team and the patient. SW attempted to contact and update both of the patient's daughters: Anjana and Sophia. SW left them voicemails. The patient is to discharge today, 02/04, to [facility] for a skilled stay. Transportation was scheduled around 1330, via [facility]. LEANDRO informed the patient and RN of the time. They were both agreeable to the time. SW attempted to contact and update her daughters, Anjana and Sophia of the time. They did not answer. SW left them a voicemail. LEANDRO presented and read the IM form outloud to the patient. The patient verbalized understanding and signed the form. LEANDRO provided her with a copy. No additional needs at this time.
--- NOTE | 2021-02-04 13:57 | NUR ---
PT WAS PICKED UP BY [facility].
== END 2021-02-04 13:57 | DRG 56 ==
PROVIDERS: Internal Medicine Nephrology; Physician Assistant; ADMIT Internal Medicine
PROC: 5A1D70Z Performance of Urinary Filtration, Intermittent, Less than 6 Hours Per Day (ICD-10-PCS; principal; 2021-01-24)
DX: I69.328 Other speech and language deficits following cerebral infarction (principal); N18.6 End stage renal disease; I69.351 Hemiplegia and hemiparesis following cerebral infarction affecting right dominant side; J96.12 Chronic respiratory failure with hypercapnia; J96.11 Chronic respiratory failure with hypoxia; I13.2 Hypertensive heart and chronic kidney disease with heart failure and with stage 5 chronic kidney disease, or end stage renal disease; I69.354 Hemiplegia and hemiparesis following cerebral infarction affecting left non-dominant side; I50.32 Chronic diastolic (congestive) heart failure; N25.81 Secondary hyperparathyroidism of renal origin; C64.9 Malignant neoplasm of unspecified kidney, except renal pelvis; C78.7 Secondary malignant neoplasm of liver and intrahepatic bile duct; N39.0 Urinary tract infection, site not specified; Z68.42 Body mass index [BMI] 45.0-49.9, adult; I69.393 Ataxia following cerebral infarction; L40.8 Other psoriasis; J44.9 Chronic obstructive pulmonary disease, unspecified; E04.1 Nontoxic single thyroid nodule; G47.30 Sleep apnea, unspecified; E78.5 Hyperlipidemia, unspecified; D63.1 Anemia in chronic kidney disease; D47.2 Monoclonal gammopathy; E11.21 Type 2 diabetes mellitus with diabetic nephropathy; I25.10 Atherosclerotic heart disease of native coronary artery without angina pectoris; I35.0 Nonrheumatic aortic (valve) stenosis; G89.29 Other chronic pain; M54.9 Dorsalgia, unspecified; K21.9 Gastro-esophageal reflux disease without esophagitis; R04.0 Epistaxis; M25.511 Pain in right shoulder; W19.XXXA Unspecified fall, initial encounter; Y92.230 Patient room in hospital as the place of occurrence of the external cause; Z79.899 Other long term (current) drug therapy; Z79.4 Long term (current) use of insulin; Z73.6 Limitation of activities due to disability; Z79.82 Long term (current) use of aspirin; Z90.5 Acquired absence of kidney; Z99.81 Dependence on supplemental oxygen; Z99.2 Dependence on renal dialysis; Z87.891 Personal history of nicotine dependence; Z79.891 Long term (current) use of opiate analgesic; Z96.89 Presence of other specified functional implants; B96.20 Unspecified Escherichia coli [E. coli] as the cause of diseases classified elsewhere; E66.01 Morbid (severe) obesity due to excess calories; R39.15 Urgency of urination
CPT/HCPCS: 99223-AI; 99231-AI; 99232-AI; 99239; J0696; J1644; J1815; J7030; Q5105

== ENCOUNTER 2021-06-01 11:49 | Emergency (ER) | payer MEDICARE ==
[~2021-06-01] VITALS: Ht 162.6 cm; Wt 108.6 kg
[~2021-06-01 11:49] MED LIST changes: +COLACE 100100 MG/CAP PO; +DULCOLAX S10 MG/SUPP RC; +NOVLOG SQ
[2021-06-01 11:53] VITALS: TEMP 97.5
[2021-06-01 12:04] LABS: BASO % 0.4 % (0.0-2.0); EOS # 0.1 K/mm3 (0.0-0.7); EOS % 1.1 % (0.0-4.0); GRAN # 3.4 K/mm3 (1.4-6.5); GRAN % 71.5 % (42.2-75.2); HEMATOCRIT 39.3 % (37.0-47.0); HEMOGLOBIN 11.9 g/dl (12.5-16.0); LYMPH # 0.7 K/mm3 (1.2-3.4); LYMPH % 15.6 % (20.0-51.0); MEAN CELL VOLUME 88 fl (80.0-100.0); MEAN CORPUSCULAR HEMOGLOBIN 27 pg (27-31); MEAN CORPUSCULAR HGB CONC 30 g/dl (33.0-37.0); MEAN PLATELET VOLUME 10.6 fl (7.4-10.4); MONO # 0.5 K/mm3 (0.1-0.6); PLATELET COUNT 125 K/mm3 (130-400); RED BLOOD COUNT 4.45 M/mm3 (4.10-5.30); REDCELL DISTRIBUTION WIDTH-CV 14.6 % (11.5-14.5)
[2021-06-01 12:20] LABS: ALBUMIN 2.9 gm/dL (3.4-4.8); BILIRUBIN,TOTAL 0.8 mg/dL (0.2-1.2); CALCIUM 8.4 mg/dL (8.4-10.2); CREATININE, serum 3.49 mg/dL (0.57-1.11); POTASSIUM 3.8 mmol/L (3.5-4.5); TOTAL PROTEIN 6.4 gm/dL (6.2-8.1)
[2021-06-01 12:26] LABS: TROPONIN-I 0.269 ng/mL (0.00-0.033)
[2021-06-01 14:08] VITALS: BP 158/89; PULSE 71
== END 2021-06-01 14:20 | disposition home or self-care (01) ==
LOC: COL.ER 11:49
PROVIDERS: Student in an Organized Health Care Education/Training Program
DX: R07.89 Other chest pain (principal); J44.9 Chronic obstructive pulmonary disease, unspecified; I50.9 Heart failure, unspecified; E11.22 Type 2 diabetes mellitus with diabetic chronic kidney disease; N18.6 End stage renal disease; Z99.2 Dependence on renal dialysis; Z79.4 Long term (current) use of insulin; Z79.82 Long term (current) use of aspirin

== ENCOUNTER 2021-06-06 21:40 | Inpatient (IN) | payer MEDICARE ==
[~2021-06-06] VITALS: Ht 162.6 cm; Wt 117.2 kg
[2021-06-06] MEDS ORDERED: MIRALAX PA17 GM/Dose PO (22:56)
[2021-06-06] MEDS ORDERED: LEVEMIR SQ (22:58)
[2021-06-06] MEDS ORDERED: AURYXIA1 GM PO (23:01)
[2021-06-06] MEDS ORDERED: CELEBREX 200MG200 MG PO (23:02)
[2021-06-06] MEDS ORDERED: NYSTATIN POWDER15 GM TOP (23:02)
[2021-06-06] MEDS ORDERED: ZOFRAN8 MG PO (23:03)
[2021-06-06] MEDS ORDERED: REGLAN 5MG T5 MG/TAB PO (23:03)
[2021-06-07] VITALS (8 sets, daily range): BP systolic 108–187; BP diastolic 31–89; PULSE 64–104; TEMP 97.6–98.7
--- NOTE | 2021-06-07 01:51 | NUR ---
Patient arrived to medical unit via EMS from [facility] around 2300. Updated medications list. Called Dr. Romano and orders recieved. Patient is alert and oriented x 4, and able to make needs known. Denies pain and discomfort. Did not come with IV site. Attempted to start one to right forearm, unsuccessful. Dr. Romano said she did not need one tonight, will ask day shift to try. AV fistulta to left arm, positive bruit and thrill. Denies SOB and dsypnea. LS CTA in upper lobes, diminished in lower. HRR. Capillary refill less than 3 seconds. Non-tenting skin turgor. BSAx4. No edema. Voices no questions, needs, or concerns at this time. Assisted to bedside commode. Weak gait. In bed with call light within reach. Bed alarm on.
--- NOTE | 2021-06-07 05:28 | NUR ---
Patient has denied pain and discomfort this shift. Has remained on room air throughout the night. Denies SOB and dyspnea. Has used bedside commode with one assist. Voices no questions, needs, or concerns at this time. In bed with call light within reach.
--- NOTE | 2021-06-07 09:15 | NUR ---
PT ASSESSED. NO COMPLAINTS OF PAIN OR DYSPNEA. NO SIGNS OR SYMPTOMS OF DISTRESS. CALL LIGHT WITHIN REACH
[2021-06-07 11:01] LABS: ALBUMIN 2.3 gm/dL (3.4-4.8); CALCIUM 7.5 mg/dL (8.4-10.2); CREATININE, serum 4.35 mg/dL (0.57-1.11); PHOSPHOROUS 2.7 mg/dL (2.3-4.7); POTASSIUM 3.4 mmol/L (3.5-4.5)
[2021-06-07 11:17] LABS: BASO % 0.3 % (0.0-2.0); GRAN # 2.1 K/mm3 (1.4-6.5); GRAN % 68.9 % (42.2-75.2); LYMPH # 0.7 K/mm3 (1.2-3.4); LYMPH % 21.3 % (20.0-51.0); MEAN CELL VOLUME 86 fl (80.0-100.0); MEAN CORPUSCULAR HGB CONC 31 g/dl (33.0-37.0); MONO # 0.2 K/mm3 (0.1-0.6); MONO % 7.5 % (1.7-9.3); PLATELET COUNT 95 K/mm3 (130-400); RED BLOOD COUNT 3.55 M/mm3 (4.10-5.30); REDCELL DISTRIBUTION WIDTH-CV 14.6 % (11.5-14.5)
[2021-06-07 11:19] LABS: HEMATOCRIT 30.5 % (37.0-47.0); HEMOGLOBIN 9.5 g/dl (12.5-16.0); MEAN CORPUSCULAR HEMOGLOBIN 27 pg (27-31)
--- NOTE | 2021-06-07 13:12 | NUR ---
Patient covid+. Intake completed via phone. Patient reports that she is back home now and that [facility] "didn't work out". Patient is independent with her ADL's and utilizes a cane and a walker to assist with ambulation. She is set up with home oxygen and a trilogy through [facility]. PCP is Dr. Vanegas and she utilizes [facility] for medications. Patient has a DPOA-HC located in her EMR that lists her daughter Cata. Patient reports that her PCP has been trying to get her into [facility] in [place] for SNF,ut as of this moment has not been successful. PT/OT requested. Discharge plan: Patient would like to go to [facility]. PT/OT order requested.
--- NOTE | 2021-06-07 13:26 | NUR ---
PATIENT TOLERATED HD TX WITH 1L OF FLUID REMOVED. NEXT PLANNED HD TX ON Wednesday06/10/21 @ 0800.
--- NOTE | 2021-06-07 20:55 | NUR ---
REC'D call from BIAS BINDING FOLDER for help, RN entered room and found pt unresponsive, labored respirations, BIAS BINDING FOLDER checking BGM, meter reading LO, VS obtained, O2 sat 88%, placed on O2 5L, no hypoglycemic orders on chart so rapid response called, D50W obtained from leonardo, ICU nurse and laborer cook house ZAIRA Shannon at bedside, 25ml of D50W given IVP @ 2101, 2104 pt becoming more aware, starting to talk, rechecked BGM 81, oriented pt to situation, pt stated she didn't eat much dinner. OJ and applesauce given, then pt ate sandwich and another applesauce. Dr Romano notified of events, hypoglycemic orders placed on chart.
--- NOTE | 2021-06-07 22:45 | NUR ---
rechecked BGM 64, pt given OJ and applesauce, 2100 dose of Levemir held after low sugar @ 2054
[2021-06-08 04:33] VITALS: BP 122/60; PULSE 76; TEMP 97.5
--- NOTE | 2021-06-08 06:32 | NUR ---
PT'S BGM up to 150 this am after dipping down to 64 during the noc, treated with juice and applesauce. HS nikki held last noc. awake and alert this am. on 2L O2 per NC, is going to check and see if family can bring up her home trilogy.
[2021-06-08 06:37] LABS: BASO % 0.3 % (0.0-2.0); EOS % 0.6 % (0.0-4.0); GRAN # 1.9 K/mm3 (1.4-6.5); GRAN % 56.7 % (42.2-75.2); HEMATOCRIT 38.1 % (37.0-47.0); HEMOGLOBIN 11.4 g/dl (12.5-16.0); LYMPH % 29.1 % (20.0-51.0); MEAN CELL VOLUME 88 fl (80.0-100.0); MEAN CORPUSCULAR HEMOGLOBIN 26 pg (27-31); MEAN CORPUSCULAR HGB CONC 30 g/dl (33.0-37.0); MEAN PLATELET VOLUME 11.4 fl (7.4-10.4); MONO # 0.4 K/mm3 (0.1-0.6); MONO % 12.4 % (1.7-9.3); PLATELET COUNT 103 K/mm3 (130-400); RED BLOOD COUNT 4.33 M/mm3 (4.10-5.30); REDCELL DISTRIBUTION WIDTH-CV 14.7 % (11.5-14.5)
[2021-06-08 07:07] LABS: ALBUMIN 2.7 gm/dL (3.4-4.8); CALCIUM 8.5 mg/dL (8.4-10.2); CREATININE, serum 3.39 mg/dL (0.57-1.11); PHOSPHOROUS 2.7 mg/dL (2.3-4.7); POTASSIUM 4.1 mmol/L (3.5-4.5)
[2021-06-08 09:14] VITALS: BP 120/53; PULSE 71; TEMP 98
--- NOTE | 2021-06-08 09:15 | NUR ---
PT ASSESSED. NO COMPLAINTS OF PAIN OR DYSPNEA. NO SIGNS OR SYMPTOMS OF DISTRESS. CALL LIGHT WITHIN REACH.
[2021-06-08 12:14] VITALS: BP 129/58; PULSE 67; TEMP 98.2
[2021-06-08 16:33] VITALS: BP 118/59; PULSE 70; TEMP 98.2
[2021-06-08 21:00] VITALS: BP 127/57; PULSE 70; TEMP 98.8
--- NOTE | 2021-06-08 21:40 | NUR ---
Tryed to notify dr clemente of pt blood sugar and tx. No answer left message to call back-holding levmir 50 units. Want to get further orders and approval.
--- NOTE | 2021-06-08 22:29 | NUR ---
ALERT AND OX4. DENIES SOA, CHEST PAIN OR DIZZY. BS WAS LOW- JUICE DRANK. DR CHEN DID NOT CALL THIS NURSE BACK AFTER MESSAGE LEFT. HOLDING LEVMIR. HYPGLYCEMIA ORDERS FOLLOWED. POC DISCUSSED. CALL LIGHT WI REACH. PT WAS ASSYMPTOMATIC WITH BLOOD SUGAR.
--- NOTE | 2021-06-08 23:10 | NUR ---
BLOOD SUGAR OF 73 OBTAINED, MORE JUICE AND SNACKS PROVIDED. ASSYMPTOMATIC.
[2021-06-09 00:23] VITALS: BP 131/59; PULSE 70; TEMP 98.4
[2021-06-09 03:52] VITALS: BP 134/58; PULSE 77; TEMP 98.2
[2021-06-09 06:51] LABS: BASO % 0.3 % (0.0-2.0); EOS # 0.1 K/mm3 (0.0-0.7); EOS % 1.3 % (0.0-4.0); GRAN # 1.9 K/mm3 (1.4-6.5); GRAN % 49.9 % (42.2-75.2); LYMPH # 1.4 K/mm3 (1.2-3.4); MEAN CELL VOLUME 88 fl (80.0-100.0); MEAN CORPUSCULAR HGB CONC 30 g/dl (33.0-37.0); MEAN PLATELET VOLUME 11.5 fl (7.4-10.4); MONO # 0.4 K/mm3 (0.1-0.6); MONO % 11.7 % (1.7-9.3); PLATELET COUNT 111 K/mm3 (130-400); RED BLOOD COUNT 3.64 M/mm3 (4.10-5.30)
[2021-06-09 07:00] LABS: HEMATOCRIT 32.1 % (37.0-47.0); HEMOGLOBIN 9.7 g/dl (12.5-16.0); MEAN CORPUSCULAR HEMOGLOBIN 27 pg (27-31)
[2021-06-09 07:06] LABS: ALBUMIN 2.3 gm/dL (3.4-4.8); CALCIUM 7.7 mg/dL (8.4-10.2); CREATININE, serum 4.26 mg/dL (0.57-1.11); PHOSPHOROUS 2.7 mg/dL (2.3-4.7); POTASSIUM 4.6 mmol/L (3.5-4.5)
[2021-06-09 08:49] VITALS: BP 132/60; PULSE 84; TEMP 98.1
[2021-06-09 11:56] VITALS: BP 134/49; PULSE 56; TEMP 97.9
--- NOTE | 2021-06-09 15:01 | NUR ---
Stores Despatch Hand collaborated with DEVORA Guzman who advised she will recommend SNF for patient. SW faxed referral to [facility], [facility], [facility], and [facility]. SW contacted [facility] and advised they had been tentatively looking to accept patient, however her covid status may affect if/when they can accept. SW was advised that they had talked with patient's daughter about providing transport to dialysis. Discharge Plan: SNF, pending referrals to [facility], [facility], and [facility].
[2021-06-09 16:35] VITALS: BP 130/54; PULSE 78; TEMP 97.5
[2021-06-09 20:30] VITALS: BP 138/47; PULSE 92; TEMP 97.8
--- NOTE | 2021-06-09 23:46 | NUR ---
Pt denies soa, chest pain or dizzy. Denies pain. PM meds given. Insulin per orders. Dialysis in am. POC discussed. Call light wi reach.
[2021-06-10] VITALS (8 sets, daily range): BP systolic 116–188; BP diastolic 44–80; PULSE 80–104; TEMP 97.3–99
--- NOTE | 2021-06-10 05:55 | NUR ---
PT BLOOD SUGAR OF 29 THIS AM- SWEATING AND LAYING BACK. TALKING WITH NURSE KNOWS SHE IS LOW. 12.5MG GLUCOSE PER IV. ALONG W JUICE AND PEANUT BUTTER . WILL RECHECK IN 15MIN. SETTING UP AND MORE RESPONSIVE AFTER IV SUGAR. HYPOGLYCEMIA PROTOCOL FOLLOWED. WILL NOTIFY DOCTOR.
--- NOTE | 2021-06-10 06:16 | NUR ---
DR CHEN NOTIFIED OF LOW BLOOD SUGAR OF AND INTERVENTIONS DONE BY FOLLOWING HYPOGLYCEMIA PROTOCOL- ORDER CHANGED FROM 50 UNITS LEVAMIR, TO 25 LEVAMIR BID.
--- NOTE | 2021-06-10 09:40 | NUR ---
PT PLEASANT, AOX4, REPORTS BEING COLD, TEMP OBTAINED AT 97.4 AXILLARY. PT GIVEN BLANKETS, ASSESSMENT PERFORMED, MEDICATIONS GIVEN, FRESH ICE WATER PROVIDED, EDEMA NOTED TO BLE, PT DENIES PAIN/SOB/COUGH/N/V/D. SNACK PROVIDED PER PT REQUEST, PT UP TO CHAIR AT THIS TIME, PLAN FOR DIALYSIS LATER, NO OTHER NEEDS
[2021-06-10 13:44] LABS: BASO % 0.3 % (0.0-2.0); EOS % 0.6 % (0.0-4.0); GRAN # 2.5 K/mm3 (1.4-6.5); GRAN % 69.6 % (42.2-75.2); LYMPH # 0.7 K/mm3 (1.2-3.4); LYMPH % 19.2 % (20.0-51.0); MEAN CELL VOLUME 88 fl (80.0-100.0); MEAN CORPUSCULAR HGB CONC 30 g/dl (33.0-37.0); MEAN PLATELET VOLUME 10.6 fl (7.4-10.4); MONO # 0.4 K/mm3 (0.1-0.6); MONO % 9.7 % (1.7-9.3); PLATELET COUNT 105 K/mm3 (130-400); RED BLOOD COUNT 3.73 M/mm3 (4.10-5.30); REDCELL DISTRIBUTION WIDTH-CV 14.9 % (11.5-14.5)
[2021-06-10 13:45] LABS: HEMOGLOBIN 9.9 g/dl (12.5-16.0); MEAN CORPUSCULAR HEMOGLOBIN 27 pg (27-31)
[2021-06-10 13:46] LABS: HEMATOCRIT 32.7 % (37.0-47.0)
[2021-06-10 13:59] LABS: ALBUMIN 2.2 gm/dL (3.4-4.8); CALCIUM 7.5 mg/dL (8.4-10.2); CREATININE, serum 4.93 mg/dL (0.57-1.11); POTASSIUM 4.6 mmol/L (3.5-4.5)
[2021-06-10 14:34] LABS: PHOSPHOROUS 3.4 mg/dL (2.3-4.7)
--- NOTE | 2021-06-10 16:11 | NUR ---
PATIENT TOLERATED HD TXC WITH 2.3L OF FLUID REMOVED. NEXT PLANNED HD TX ON Wednesday06/12/21 @ 0800.
--- NOTE | 2021-06-10 17:02 | NUR ---
Assembly Loader collaborated with Dr. Romano and advised at this time there was no facility that can officially accept. [facility] and [facility] both declined referral. LEANDRO left a message for Kailey at [facility]. LEANDRO spoke with Neris at [facility] who advised they do not have the staffing to take patient this week, but can possibly accept next week if patient's family is still agreeable to transport patient to dialysis. Patient's chair time is TuThSat at 1000.
--- NOTE | 2021-06-10 18:14 | NUR ---
PT HAD DIALYSIS TODAY, PT PLEASANT, AOX4, DENIES PAIN, ATE 50% LUNCH, TOOK MEDS ORDERED, UNEVENTFUL SHIFT OVERALL
--- NOTE | 2021-06-10 21:43 | NUR ---
ALERT AND OX3. BUT VERY TIRED FROM DIAYLSIS. DAUGHTER WAS UPDATED ON PT STATUS. BS 206- PT REF SLIDING SCALE INSULIN DOSE BUT TOOK LEVMIR 25 UNITS. PM MEDS GIVEN. CALL LIGHT WI REACH.
[2021-06-11 00:03] VITALS: BP 128/62; PULSE 93; TEMP 97.9
[2021-06-11 04:09] VITALS: BP 109/41; PULSE 81; TEMP 98.1
[2021-06-11 07:03] LABS: BASO % 0.3 % (0.0-2.0); EOS % 0.8 % (0.0-4.0); GRAN # 2.1 K/mm3 (1.4-6.5); GRAN % 55.7 % (42.2-75.2); LYMPH # 1.1 K/mm3 (1.2-3.4); LYMPH % 28.5 % (20.0-51.0); MEAN CELL VOLUME 90 fl (80.0-100.0); MEAN CORPUSCULAR HGB CONC 30 g/dl (33.0-37.0); MEAN PLATELET VOLUME 10.8 fl (7.4-10.4); MONO # 0.5 K/mm3 (0.1-0.6); MONO % 14.2 % (1.7-9.3); PLATELET COUNT 108 K/mm3 (130-400); RED BLOOD COUNT 3.43 M/mm3 (4.10-5.30); REDCELL DISTRIBUTION WIDTH-CV 14.9 % (11.5-14.5)
[2021-06-11 07:07] LABS: HEMATOCRIT 30.7 % (37.0-47.0); HEMOGLOBIN 9.3 g/dl (12.5-16.0); MEAN CORPUSCULAR HEMOGLOBIN 27 pg (27-31)
[2021-06-11 07:22] LABS: ALBUMIN 2.1 gm/dL (3.4-4.8); CALCIUM 7.8 mg/dL (8.4-10.2); CREATININE, serum 3.67 mg/dL (0.57-1.11); PHOSPHOROUS 2.9 mg/dL (2.3-4.7); POTASSIUM 4.4 mmol/L (3.5-4.5)
[2021-06-11 08:30] VITALS: BP 127/72; PULSE 58; TEMP 99.1
--- NOTE | 2021-06-11 08:50 | NUR ---
PT CAREY ASSIST WITH WALKER TO BATHROOM. CHANGED PT LINENS. PT HAD SOFT FORMED SMALL BM, ASSISTED PT WITH PERICARE, NOTED SMALL SKIN TEAR AT TOP OF COCCYX, SAMANTHA MEDINA NOTIFIED. ASSISTED PT TO RECLINER, COMBED PT HAIR AND PROVIDED WARM WASH CLOTH TO WASH HER FACE. PT STILL EATING DINNER, TOOTHBRUSH AND TOOTHPASTE BROUGHT OVER TO PT. ASSESSMENT PERFORMED, MEDICAITONS GIVEN, NO OTHER NEEDS
[2021-06-11 11:52] VITALS: BP 122/53; PULSE 91; TEMP 97.6
[2021-06-11 15:57] VITALS: BP 128/50; PULSE 85; TEMP 97.6
--- NOTE | 2021-06-11 15:59 | NUR ---
Grinding Machine Operator Portable spoke with LEANDRO Malone at [facility] who requested clinical updates, which LEANDRO faxed.
--- NOTE | 2021-06-11 17:31 | NUR ---
PT PLEASANT, AOX4, UNEVENTFUL SHIFT, PT ASSISTED TO BATHROOM STANDBY WITH WALKER, INSULIN GIVEN WITH MEALS, DIALYSIS TOMORROW, NO OTHER NEEDS
[2021-06-11 20:49] VITALS: BP 140/91; PULSE 97; TEMP 97.9
--- NOTE | 2021-06-11 21:34 | NUR ---
Patient assessed around 2119. Alert and oriented, and able to make needs known. Denies pain and discomfort. Peripheral INT to right AC. AV fistula to left forearm. Denies SOB and dyspnea. LS CTA in upper lobes, diminished in lower. BSAx4. Abdomen soft and non-tender. 2+ edema BLE. Voices no questions, needs, or concerns at this time. In bed with call light within reach.
[2021-06-12] VITALS (7 sets, daily range): BP systolic 123–144; BP diastolic 51–70; PULSE 82–97; TEMP 97.7–99.1
--- NOTE | 2021-06-12 05:55 | NUR ---
Patient has been resting in bed with call light within reach. Has denied pain and discomfort. Patient had been on room air, wears trilogy at night. Voices no questions, needs, or concerns at this time. In bed with call light within reach.
[2021-06-12 07:25] LABS: ALBUMIN 2.2 gm/dL (3.4-4.8); CALCIUM 7.9 mg/dL (8.4-10.2); CREATININE, serum 4.6 mg/dL (0.57-1.11); PHOSPHOROUS 2.9 mg/dL (2.3-4.7); POTASSIUM 4.6 mmol/L (3.5-4.5)
[2021-06-12 07:41] LABS: BASO % 0.5 % (0.0-2.0); EOS # 0.1 K/mm3 (0.0-0.7); EOS % 1.4 % (0.0-4.0); GRAN # 2.6 K/mm3 (1.4-6.5); GRAN % 61.5 % (42.2-75.2); LYMPH # 1.1 K/mm3 (1.2-3.4); LYMPH % 26.2 % (20.0-51.0); MEAN CELL VOLUME 90 fl (80.0-100.0); MEAN CORPUSCULAR HGB CONC 30 g/dl (33.0-37.0); MEAN PLATELET VOLUME 10.8 fl (7.4-10.4); MONO # 0.4 K/mm3 (0.1-0.6); MONO % 9.7 % (1.7-9.3); PLATELET COUNT 116 K/mm3 (130-400); RED BLOOD COUNT 3.54 M/mm3 (4.10-5.30)
[2021-06-12 07:45] LABS: HEMATOCRIT 31.9 % (37.0-47.0); HEMOGLOBIN 9.5 g/dl (12.5-16.0); MEAN CORPUSCULAR HEMOGLOBIN 27 pg (27-31)
--- NOTE | 2021-06-12 09:50 | NUR ---
PT ASSESSED. NO COMPLAINTS OF PAIN OR DYSPNEA. NO SIGNS OR SYMPTOMS OF DISTRESS. DIALYSIS AT BEDSIDE. COMPLAINS OF NAUSEA AND IS MEDICATED PER MAR. NO OTHER CONCERNS AT THIS TIME. CALL LIGHT WITHIN REACH
--- NOTE | 2021-06-12 12:23 | NUR ---
PATIENT TOLRATED HD TX WITH 2L OF FLUID REMOVED. PRIOR TO STARTING TX HER O2 SAT 91-88% ON RA. 30 MINS INTO TX O2 SAT 88% & APPLIED O2 @ 2 L VIA NC. WEANED OFF WITH 57 MINS OF TX & O2 SAT DROPPED TO 89% AFTER 10 MINS ON RA. LEFT PATIENT ON 1L VIA NC WITH O2 SAT @ 95%. NEXT PLANNED HD TX ON Wednesday06/14/21 @ 0800.
--- NOTE | 2021-06-12 14:47 | NUR ---
Salesperson Fashion Accessories spoke with Kira Salesperson Fashion Accessories at [facility] ([place], [place]) who advised they can accept patient next week. Kira advised SW would need to call Wednesday to set date/time for admit. LEANDRO contacted patient by phone to review discharge plan. Patient is in agreement. Discharge Plan: [facility]
[2021-06-13 00:31] VITALS: BP 123/68; PULSE 74; TEMP 97.7
[2021-06-13 04:29] VITALS: BP 120/52; PULSE 74; TEMP 98
[2021-06-13 06:50] LABS: BASO % 0.2 % (0.0-2.0); EOS # 0.1 K/mm3 (0.0-0.7); EOS % 2.2 % (0.0-4.0); GRAN # 2.2 K/mm3 (1.4-6.5); GRAN % 53.3 % (42.2-75.2); LYMPH # 1.3 K/mm3 (1.2-3.4); MEAN CELL VOLUME 90 fl (80.0-100.0); MEAN CORPUSCULAR HGB CONC 29 g/dl (33.0-37.0); MEAN PLATELET VOLUME 10.8 fl (7.4-10.4); MONO # 0.5 K/mm3 (0.1-0.6); MONO % 12.3 % (1.7-9.3); PLATELET COUNT 138 K/mm3 (130-400); RED BLOOD COUNT 3.44 M/mm3 (4.10-5.30); REDCELL DISTRIBUTION WIDTH-CV 15.1 % (11.5-14.5)
[2021-06-13 06:59] LABS: HEMATOCRIT 30.9 % (37.0-47.0); MEAN CORPUSCULAR HEMOGLOBIN 26 pg (27-31)
[2021-06-13 07:48] LABS: ALBUMIN 2.1 gm/dL (3.4-4.8); CALCIUM 8.1 mg/dL (8.4-10.2); CREATININE, serum 3.55 mg/dL (0.57-1.11); PHOSPHOROUS 2.7 mg/dL (2.3-4.7); POTASSIUM 4.3 mmol/L (3.5-4.5)
[2021-06-13 08:14] VITALS: BP 116/45; PULSE 76; TEMP 97.9
--- NOTE | 2021-06-13 09:24 | NUR ---
PT ASSESSED. NO COMPLAINTS OF PAIN OR DYSPNEA. NO SIGNS OR SYMPTOMS OF DISTESS. CALL LIGHT WITHIN REACH
[2021-06-13 11:19] VITALS: BP 121/64; PULSE 94; TEMP 98.4
[2021-06-13 16:00] VITALS: BP 153/67; PULSE 85; TEMP 97.7
[2021-06-13 19:54] VITALS: BP 145/65; PULSE 86; TEMP 97.5
[2021-06-14 00:17] VITALS: BP 121/64; PULSE 78; TEMP 97.9
[2021-06-14 05:03] VITALS: BP 129/49; PULSE 76
--- NOTE | 2021-06-14 05:37 | NUR ---
PATIENT RESTING QUIETLY IN BED WITH TRILOGY IN PLACE. NO NEW ISSUES NOTED OR REPORTED BY PATIENT.
[2021-06-14 07:57] LABS: ALBUMIN 2.1 gm/dL (3.4-4.8); CREATININE, serum 4.64 mg/dL (0.57-1.11); PHOSPHOROUS 3.1 mg/dL (2.3-4.7); POTASSIUM 4.7 mmol/L (3.5-4.5)
[2021-06-14 08:34] LABS: BASO % 0.4 % (0.0-2.0); EOS # 0.1 K/mm3 (0.0-0.7); EOS % 1.9 % (0.0-4.0); GRAN # 2.5 K/mm3 (1.4-6.5); GRAN % 52.7 % (42.2-75.2); LYMPH # 1.6 K/mm3 (1.2-3.4); LYMPH % 33.5 % (20.0-51.0); MEAN CELL VOLUME 91 fl (80.0-100.0); MEAN CORPUSCULAR HGB CONC 29 g/dl (33.0-37.0); MEAN PLATELET VOLUME 10.8 fl (7.4-10.4); MONO # 0.5 K/mm3 (0.1-0.6); MONO % 10.9 % (1.7-9.3); PLATELET COUNT 146 K/mm3 (130-400); RED BLOOD COUNT 3.24 M/mm3 (4.10-5.30); REDCELL DISTRIBUTION WIDTH-CV 15.2 % (11.5-14.5)
[2021-06-14 08:36] LABS: HEMATOCRIT 29.4 % (37.0-47.0); HEMOGLOBIN 8.6 g/dl (12.5-16.0); MEAN CORPUSCULAR HEMOGLOBIN 27 pg (27-31)
[2021-06-14 08:37] VITALS: BP 114/53; PULSE 75; TEMP 97.9
--- NOTE | 2021-06-14 09:36 | NUR ---
PT ASSESSED. NO COMPLAINTS OF PAIN OR DYSPNEA. NO SIGNS OR SYMPTOMS OF DISTRESS. DIALYSIS AT BEDSIDE. IV REMOVED PER VERBAL ORDER. NO OTHER CONCERNS AT THIS TIME. CALL LIGHT WITHIN REACH
--- NOTE | 2021-06-14 12:47 | NUR ---
PATIENT TOLERATED HER HD TX WITH 1.7L OF FLUID REMOVED. ATTEMPTED INCREASE FLUID REMOVAL & PATIENT BECAME HYPOTENSIVE & TACHYCARDIAC. NEXT PLANNED HD TX ON Wednesday06/17/21 @ 0800.
[2021-06-14 12:59] VITALS: BP 142/77; PULSE 98; TEMP 98.4
[2021-06-14 16:34] VITALS: BP 145/59; PULSE 89; TEMP 98.1
[2021-06-14 20:48] VITALS: BP 135/53; PULSE 82; TEMP 97.8
--- NOTE | 2021-06-15 03:16 | NUR ---
PATIENT RESTED QUIETLY IN BED WEARING HER HOME TRILOGY. NO NEW ISSUES OVERNIGHT.
[2021-06-15 05:45] VITALS: BP 131/58; PULSE 83; TEMP 98.6
[2021-06-15 07:50] LABS: BASO % 0.4 % (0.0-2.0); EOS # 0.1 K/mm3 (0.0-0.7); EOS % 1.7 % (0.0-4.0); GRAN # 2.7 K/mm3 (1.4-6.5); GRAN % 56.1 % (42.2-75.2); LYMPH # 1.4 K/mm3 (1.2-3.4); LYMPH % 29.8 % (20.0-51.0); MEAN CELL VOLUME 91 fl (80.0-100.0); MEAN CORPUSCULAR HGB CONC 29 g/dl (33.0-37.0); MEAN PLATELET VOLUME 10.9 fl (7.4-10.4); MONO # 0.5 K/mm3 (0.1-0.6); MONO % 11.2 % (1.7-9.3); PLATELET COUNT 154 K/mm3 (130-400); RED BLOOD COUNT 3.24 M/mm3 (4.10-5.30); REDCELL DISTRIBUTION WIDTH-CV 15.1 % (11.5-14.5)
[2021-06-15 07:59] LABS: HEMATOCRIT 29.6 % (37.0-47.0); HEMOGLOBIN 8.6 g/dl (12.5-16.0); MEAN CORPUSCULAR HEMOGLOBIN 27 pg (27-31)
[2021-06-15 08:06] LABS: ALBUMIN 2.1 gm/dL (3.4-4.8); CALCIUM 8.1 mg/dL (8.4-10.2); CREATININE, serum 3.77 mg/dL (0.57-1.11); PHOSPHOROUS 2.4 mg/dL (2.3-4.7)
[2021-06-15 08:36] VITALS: BP 122/64; PULSE 85; TEMP 98.1
--- NOTE | 2021-06-15 11:05 | NUR ---
PT ASSESSED. NO COMPLAINTS OF DYSPNEA, COMPLAINS OF PAIN AND IS MEDICATED PER MAR. NO OTHER CONCERNS AT THIS TIME. CALL LIGHT WITHIN REACH
[2021-06-15 12:44] VITALS: BP 124/52; PULSE 79; TEMP 97.9
[2021-06-15 14:57] VITALS: BP 118/43; PULSE 72; TEMP 97.7
[2021-06-15 20:00] VITALS: BP 138/50; PULSE 69; TEMP 97.3
[2021-06-15 23:46] VITALS: BP 131/58; PULSE 66; TEMP 97.4
[2021-06-16 04:00] VITALS: BP 139/64; PULSE 70; TEMP 97.3
[2021-06-16 07:10] LABS: BASO % 0.4 % (0.0-2.0); EOS # 0.1 K/mm3 (0.0-0.7); EOS % 1.9 % (0.0-4.0); GRAN # 2.6 K/mm3 (1.4-6.5); LYMPH # 1.4 K/mm3 (1.2-3.4); LYMPH % 29.7 % (20.0-51.0); MEAN CELL VOLUME 90 fl (80.0-100.0); MEAN CORPUSCULAR HGB CONC 29 g/dl (33.0-37.0); MEAN PLATELET VOLUME 10.5 fl (7.4-10.4); MONO # 0.6 K/mm3 (0.1-0.6); MONO % 11.9 % (1.7-9.3); PLATELET COUNT 160 K/mm3 (130-400); RED BLOOD COUNT 3.17 M/mm3 (4.10-5.30); REDCELL DISTRIBUTION WIDTH-CV 15.1 % (11.5-14.5)
[2021-06-16 07:15] LABS: HEMATOCRIT 28.6 % (37.0-47.0); HEMOGLOBIN 8.3 g/dl (12.5-16.0); MEAN CORPUSCULAR HEMOGLOBIN 26 pg (27-31)
[2021-06-16 07:27] LABS: ALBUMIN 2.1 gm/dL (3.4-4.8); CREATININE, serum 4.96 mg/dL (0.57-1.11); PHOSPHOROUS 2.7 mg/dL (2.3-4.7); POTASSIUM 4.1 mmol/L (3.5-4.5)
[2021-06-16 08:13] VITALS: BP 119/64; PULSE 67; TEMP 97.4
--- NOTE | 2021-06-16 09:49 | NUR ---
PT ASSESSED. NO COMPLAINTS OF PAIN OR DYSPNEA. NO SIGNS OR SYMPTOMS OF DISTRESS. CALL LIGHT WITHIN REACH
[2021-06-16 11:58] VITALS: BP 147/55; PULSE 79; TEMP 97.6
--- NOTE | 2021-06-16 14:25 | NUR ---
Orchestra Conductor contacted Jaky at [facility] and faxed clinical updates. Jaky inquired about patient's trilogy use. LEANDRO contacted ZAIRA Brennan who advised patient uses Trilogy at night but has her own home Trilogy. LEANDRO updated Jaky who advised they can admit patient once they obtain prior authorization from [facility]. Jaky is hopeful they can admit patient tomorrow after dialysis. LEANDRO updated NITZA Viveros on the above information. Discharge Plan: [facility] SNF
[2021-06-16 16:29] VITALS: BP 148/64; PULSE 75; TEMP 97.6
[2021-06-16 21:09] VITALS: BP 160/69; PULSE 990; TEMP 97.9
--- NOTE | 2021-06-16 22:19 | NUR ---
Patient assessed around 2100. Alert and oriented, and able to make needs known. Denies pain and discomfort at this time. On room air, wears home trilogy at night. Plan for dialysis tomorrow than possible discharge to [facility]. Patient is aware. Voices no questions, needs, or concerns at this time. In bed with call light within reach.
[2021-06-16 23:14] VITALS: BP 137/62; PULSE 74; TEMP 97.8
[2021-06-17 04:35] VITALS: BP 124/46; PULSE 69; TEMP 97.7
--- NOTE | 2021-06-17 06:30 | NUR ---
Patient has been in bed with call light within reach. Has worn trilogy thoughout this shift. Voices no questions, needs, or concerns at this time. In bed with call light within reach.
[2021-06-17 06:38] LABS: BASO % 0.4 % (0.0-2.0); EOS # 0.1 K/mm3 (0.0-0.7); GRAN # 2.9 K/mm3 (1.4-6.5); GRAN % 59.8 % (42.2-75.2); LYMPH # 1.3 K/mm3 (1.2-3.4); LYMPH % 25.6 % (20.0-51.0); MEAN CELL VOLUME 89 fl (80.0-100.0); MEAN CORPUSCULAR HGB CONC 30 g/dl (33.0-37.0); MEAN PLATELET VOLUME 10.7 fl (7.4-10.4); MONO # 0.5 K/mm3 (0.1-0.6); MONO % 10.8 % (1.7-9.3); PLATELET COUNT 163 K/mm3 (130-400); RED BLOOD COUNT 3.28 M/mm3 (4.10-5.30); REDCELL DISTRIBUTION WIDTH-CV 15.2 % (11.5-14.5)
[2021-06-17 06:47] LABS: HEMATOCRIT 29.3 % (37.0-47.0); HEMOGLOBIN 8.7 g/dl (12.5-16.0); MEAN CORPUSCULAR HEMOGLOBIN 27 pg (27-31)
[2021-06-17 06:52] LABS: ALBUMIN 2.1 gm/dL (3.4-4.8); CALCIUM 7.8 mg/dL (8.4-10.2); CREATININE, serum 5.51 mg/dL (0.57-1.11); PHOSPHOROUS 3.6 mg/dL (2.3-4.7); POTASSIUM 4.7 mmol/L (3.5-4.5)
[2021-06-17 08:26] VITALS: BP 120/52; PULSE 73; TEMP 97.7
--- NOTE | 2021-06-17 09:50 | NUR ---
PT TO DIALYSIS VIA WHEELCHAIR
[2021-06-17 13:10] VITALS: BP 146/69; PULSE 88; TEMP 98.4
--- NOTE | 2021-06-17 13:18 | NUR ---
PATIENT TOLERATED HER HD TX WITH 2.8L OF FLUID REMOVED. NEXT HD TX ON Wednesday06/19/21 @ 0945 @ [facility] IN [place].
--- NOTE | 2021-06-17 13:20 | NUR ---
PT RETURNED FROM DIALYSIS VIA WHEELCHAIR. PT STATES THAT SHE WOULD LIKE TO STAY SITTING UP IN WHEELCHAIR AND WATCH TV. CALL LIGHT WAS PLACED ON LAP. NO OTHER NEEDS VOCIED AT THIS TIME.
--- NOTE | 2021-06-17 14:01 | NUR ---
HELPED PT TO BEDSIDE POTTY. THEN GET READY TO GO TO DIALYSIS.
--- NOTE | 2021-06-17 14:32 | NUR ---
Director Of Physician Practices was contacted by Jaky at [facility] who advised they will accept patient skilled today. Jaky advised with patient's Medicare Advantage plan, they cannot submit for authorization until the patient is in their building. Jaky advised they had been working with the family on a Medicaid application as they may been buttermaker continuous churn care for patient. LEANDRO faxed discharge orders and set transport time for 1400. SW contacted patient's daughter, Anjana and provided transport time. LEANDRO then contacted patient by phone while she was in dialysis to provide transport time. LEANDRO also reviewed IM form over the phone with patient who verbalized understanding and gave SW permission to sign on her behalf. SW placed IM form in chart. Discharge Plan: [facility]
== END 2021-06-17 14:18 | disposition home or self-care (01) | DRG 177 ==
LOC: MEDICAL 21:40
PROVIDERS: ADMIT Internal Medicine Nephrology
PROC: 5A1D70Z Performance of Urinary Filtration, Intermittent, Less than 6 Hours Per Day (ICD-10-PCS; principal; 2021-06-07)
DX: U07.1 COVID-19 (principal); N18.6 End stage renal disease; C25.9 Malignant neoplasm of pancreas, unspecified; J96.11 Chronic respiratory failure with hypoxia; J96.12 Chronic respiratory failure with hypercapnia; I13.2 Hypertensive heart and chronic kidney disease with heart failure and with stage 5 chronic kidney disease, or end stage renal disease; I50.32 Chronic diastolic (congestive) heart failure; N25.81 Secondary hyperparathyroidism of renal origin; D61.818 Other pancytopenia; J44.9 Chronic obstructive pulmonary disease, unspecified; G47.30 Sleep apnea, unspecified; E11.22 Type 2 diabetes mellitus with diabetic chronic kidney disease; E66.01 Morbid (severe) obesity due to excess calories; E78.5 Hyperlipidemia, unspecified; G89.29 Other chronic pain; M54.9 Dorsalgia, unspecified; D63.1 Anemia in chronic kidney disease; K21.9 Gastro-esophageal reflux disease without esophagitis; I25.10 Atherosclerotic heart disease of native coronary artery without angina pectoris; R94.31 Abnormal electrocardiogram [ECG] [EKG]; E11.649 Type 2 diabetes mellitus with hypoglycemia without coma; E83.51 Hypocalcemia; Z99.2 Dependence on renal dialysis; Z85.53 Personal history of malignant neoplasm of renal pelvis; Z87.891 Personal history of nicotine dependence; Z79.4 Long term (current) use of insulin; Z68.39 Body mass index [BMI] 39.0-39.9, adult; Z23 Encounter for immunization; Z73.0 Burn-out
CPT/HCPCS: J1644; J1815; J7030; Q5105

== ENCOUNTER 2021-09-05 20:13 | Inpatient (IN) | payer MEDICARE ==
[~2021-09-05] VITALS: Ht 162.6 cm; Wt 119.5 kg
[~2021-09-05 20:13] MED LIST changes: +LEVEMIR SQ; +REGLAN 5MG T5 MG/TAB PO; +ZOFRAN8 MG PO
[2021-09-05] MEDS ORDERED: NORCO 325 MG-51 TAB PO (23:23)
[2021-09-05] MEDS ORDERED: ZOFRAN ODT8 MG PO (23:23)
[2021-09-05] MEDS ORDERED: DESYREL 100MG100 MG PO (23:24)
[2021-09-05] MEDS ORDERED: DEMADEX100 MG PO (23:31)
[2021-09-05] MEDS ORDERED: SODIUM BICARBO650 MG PO (23:31)
[2021-09-05] MEDS ORDERED: VITAMIN B12 1541 TAB PO (23:33)
[2021-09-06] VITALS (7 sets, daily range): BP systolic 95–133; BP diastolic 51–72; PULSE 84–110; TEMP 97.4–99
--- NOTE | 2021-09-06 06:30 | NUR ---
PT ARRIVED TO THE MEDICAL FLOOR AROUND 2230 TO 2300HRS TO ROOM 317. PT A&O X 4; VSS; O2 TO RA (PT REQUESTED TO WEAR O2 AT 2L TO SLEEP, REQUEST GRANTED). PT COMPLAINED OF ABD PAIN. PT GIVEN NORCO FOR PAIN. PAIN RELIEVED PER PT. PT DENIED CHEST PAIN, PALPITATIONS, SOB, N,V OR DIZZINESS. PT HAD ONE INCONTINENT LOOSE STOOL THIS SHIFT. PT ALSO FOUND TO HAD A BLOOD SUGER OF 49. PT GIVEN HALF AN AMP OF D50. BS RECHECKED AND WAS 86. BS RECHECKED AGAIN AND WAS 94. ADMISSION ASSESSMENT AND MED REC COMPLETE. PT ORIENTED TO ROOM AND HOSPITAL POLICY. POC DISCUSSED WITH PT. PT VERBALIZED UNDERSTANDING. ALL QUESTIONS AND CONCERNS ADDRESSED. PT EXPRESSED NO ADDITIONAL NEEDS AT THIS TIME. CALL LIGHT WITHIN REACH.
--- NOTE | 2021-09-06 08:32 | NUR ---
PT RESTING IN BED. MORNING MEDICATIONS GIVEN. SHIFT ASSESSMENT COMPLETED. PT REPORTS ABDOMINAL PAIN, RIGHT SIDED. STATES IT'S FROM CANCER AND THAT IS WHY SHE HAS HAD NO APPETITE. CONVINCED PT TO ORDER BREAKFAST. BLOOD GLUCOSE REMAINS LOW, YE HELD THIS AM. PT TO GO TO DIALYSIS AT 0900. NO OTHER NEEDS AT THIS TIME. WILL CONTINUE TO MONITOR.
--- NOTE | 2021-09-06 09:44 | NUR ---
PT OFF UNIT AT DIALYSIS.
[2021-09-06 10:31] LABS: BASO % 0.5 % (0.0-2.0); EOS # 0.1 K/mm3 (0.0-0.7); EOS % 1.5 % (0.0-4.0); GRAN # 3.8 K/mm3 (1.4-6.5); GRAN % 64.8 % (42.2-75.2); LYMPH # 1.2 K/mm3 (1.2-3.4); LYMPH % 20.3 % (20.0-51.0); MEAN CELL VOLUME 93 fl (80.0-100.0); MEAN CORPUSCULAR HGB CONC 27 g/dl (33.0-37.0); MEAN PLATELET VOLUME 9.7 fl (7.4-10.4); MONO # 0.7 K/mm3 (0.1-0.6); MONO % 12.2 % (1.7-9.3); PLATELET COUNT 195 K/mm3 (130-400); RED BLOOD COUNT 3.62 M/mm3 (4.10-5.30); REDCELL DISTRIBUTION WIDTH-CV 17.6 % (11.5-14.5)
[2021-09-06 10:32] LABS: HEMOGLOBIN 9.2 g/dl (12.5-16.0); MEAN CORPUSCULAR HEMOGLOBIN 25 pg (27-31)
[2021-09-06 10:33] LABS: HEMATOCRIT 33.8 % (37.0-47.0)
[2021-09-06 10:40] LABS: ALBUMIN 1.8 gm/dL (3.4-4.8); CALCIUM 7.6 mg/dL (8.4-10.2); CREATININE, serum 6.78 mg/dL (0.57-1.11); PHOSPHOROUS 2.5 mg/dL (2.3-4.7); POTASSIUM 5.6 mmol/L (3.5-4.5)
--- NOTE | 2021-09-06 11:59 | NUR ---
ZOË TOLERATED HD TX WITH 3L OF FLUID REMOVED. NEXT PLANNED HD TX ON Wednesday09/08/21 @ 0830.
--- NOTE | 2021-09-06 13:01 | NUR ---
PT RETURNED FOR DIALYSIS AT THIS TIME. SITTING UP IN BED EATING LUNCH. WILL CONTINUE TO MONITOR.
--- NOTE | 2021-09-06 13:30 | NUR ---
EUGENIA MEDINA NOTED PT HAD A BLACK STOOL. WILL OBTAIN A SAMPLE NEXT TIME. SAMANTHA NOTIFIED.
--- NOTE | 2021-09-06 14:51 | NUR ---
Patient currently in dialysis. Contact made with the patients daughter Sophia to make sure she knew her mother was here. Sophia states that she did know and is planning on coming up to visit a little later.
[2021-09-07 03:50] VITALS: BP 105/50; PULSE 112; TEMP 98.7
--- NOTE | 2021-09-07 06:11 | NUR ---
ASSESSMENT COMPLETE FOR THIS SHIFT. PT RESTING IN BED WATCHING TV. PT DENIED SOB, N,V,D OR DIZZINESS. PT COMPLAINED OF ABD PAIN A COUPLE OF TIMES THIS SHIFT. NORCO GIVEN FOR PAIN. PT FELT NORCO WAS EFFECTIVE FOR PAIN. AROUND 0047HRS PT STARTED TO GET MORE TACHY, WITH HER HR GOING INTO THE 140'S TO 150'S, THEN THE [facility] CALLED TO REPORT PT HAD GONE INTO AFIB. PROVIDER CALLED. 500ML NS BOLUS OVER TWO HOURS, BLOOD CULTURES AND 0.25MG DIGOXIN ORDERED AND GIVEN/DRAWN. HR DOWN TO 90'S BY END OF SHIFT. AROUND 0230HRS LAB CALL WITH RESULTS OF GI PANEL. GI PANEL RESULTED IN C.DIFF AND E.COLI. PROVIDER CALLED. NO NEW ORDERS AT THIS TIME. PROVIDER WILL EVALUATE IN AM. PT EXPRESSED NO NEW ORDERS. CALL LIGHT WITH REACH.
[2021-09-07 06:53] LABS: BASO % 0.2 % (0.0-2.0); EOS % 0.1 % (0.0-4.0); GRAN # 8.8 K/mm3 (1.4-6.5); GRAN % 89.4 % (42.2-75.2); LYMPH # 0.3 K/mm3 (1.2-3.4); LYMPH % 3.2 % (20.0-51.0); MEAN CELL VOLUME 97 fl (80.0-100.0); MEAN CORPUSCULAR HGB CONC 26 g/dl (33.0-37.0); MEAN PLATELET VOLUME 10.1 fl (7.4-10.4); MONO # 0.6 K/mm3 (0.1-0.6); MONO % 6.3 % (1.7-9.3); PLATELET COUNT 167 K/mm3 (130-400); RED BLOOD COUNT 3.78 M/mm3 (4.10-5.30); REDCELL DISTRIBUTION WIDTH-CV 18.1 % (11.5-14.5)
[2021-09-07 06:55] LABS: ALBUMIN 1.8 gm/dL (3.4-4.8); CALCIUM 7.8 mg/dL (8.4-10.2); CREATININE, serum 5.23 mg/dL (0.57-1.11); PHOSPHOROUS 1.9 mg/dL (2.3-4.7)
[2021-09-07 07:21] LABS: HEMATOCRIT 36.8 % (37.0-47.0); HEMOGLOBIN 9.7 g/dl (12.5-16.0); MEAN CORPUSCULAR HEMOGLOBIN 26 pg (27-31)
[2021-09-07 07:42] VITALS: BP 101/43; PULSE 89; TEMP 98
[2021-09-07 11:30] LABS: CLOSTRIDIUM DIFF A/B NEG; CLOSTRIDIUM DIFF A/B INTERP NonToxigenic C.diff
[2021-09-07 12:11] VITALS: BP 101/35; PULSE 95; TEMP 98.4
--- NOTE | 2021-09-07 12:49 | NUR ---
Desktop Support Engineer met with patient, "Shiva", for intake assessment/discharge planning: Patient presents alert and oriented. She informs she was living at [facility], but her apartment is being leased out to another individual. Her cell phone and personal items remain there. She informs she learned 4 months ago that she has stage 4 cancer, and she is "not eligible" for treatment due to medical history. She informs she has discussed palliative care and hospice care with CAROL Mena, and she is in support "I don't mind. I'm not at peace with it, but I'm 61 years old and I've lived my life." She does identify seeing her 5-year old granddaughter Bailey, today, when her daughter Urmila from [place] arrives with family, and her two other daughters Sophia and Maria Antonia, as important to her. She informs all 3 daughters are appointed her DPOA-HC and this Desktop Support Engineer confirms this is filed in her EMR. She utilizes a walker at her apartment, and she has a glucometer. She uses a Trilogy machine for oxygen, more often requiring 2 liters in the recent past. She otherwise has no other durable medical equipment needs. Her primary care physician is Dr. Raimundo Vanegas, her cage loader is Dr. Margarito Romano, and she sees Dr. Hernando Mcdonald for cancer. She obtains her medications without any difficulties at [facility]. She has concerns that the staff at her AL are very young, and unskilled/uneducated. She historically had concerns with other staff stealing her pain medications. She would like to go to [facility] at discharge, as this is where her mother was placed on hospice prior to her and she likes the care there. This Desktop Support Engineer confirmed plan of care with Trina MEDINA. Per CAROL, family is updated and in support of plan. Daughters on their way to meet with patient here, today. SW faxed a referral to [facility] at Patient's request. *Discharge plan: [facility]*
--- NOTE | 2021-09-07 13:17 | NUR ---
Waterproofing Mixer contacted [facility] ([phone]) and spoke to Lary, who confirms faxed referral will be received for intakes first thing in the morning, as admin only reviews Wednesday through Wednesday. Social Work will continue to follow. *Discharge plan: [facility] vs. palliative care*
[2021-09-07 15:57] VITALS: BP 111/46; PULSE 85; TEMP 98.5
[2021-09-07 21:11] VITALS: BP 101/39; PULSE 100; TEMP 98.8
[2021-09-08] VITALS (8 sets, daily range): BP systolic 101–147; BP diastolic 35–55; PULSE 100–113; TEMP 97.4–99.6
--- NOTE | 2021-09-08 06:25 | NUR ---
ASSESSMENT COMPLETE FOR THIS SHIFT. PT RESTING IN BED NAPPING. PT DENIED PALPITATIONS, N,V,D OR DIZZINESS. PT COMPLAINED OF ABD PAIN. PT GIVEN NORCO FOR PAIN. PT FELT PAIN MEDICATION WAS EFFECTIVE. PT'S BS SEEMS TO BE STARTING TO CREEP BACK UP, PASSED ON TO DAYSHIFT RN TO SEE IF PROVIDER WANTS TO START PT BACK ON SOME INSULIN. PT EXPRESSED NO OTHER NEEDS AT THIS TIME. CALL LIGHT WITHIN REACH.
[2021-09-08 06:59] LABS: BASO % 0.3 % (0.0-2.0); EOS # 0.1 K/mm3 (0.0-0.7); EOS % 0.8 % (0.0-4.0); GRAN # 6.4 K/mm3 (1.4-6.5); GRAN % 83.8 % (42.2-75.2); LYMPH # 0.5 K/mm3 (1.2-3.4); LYMPH % 6.3 % (20.0-51.0); MEAN CELL VOLUME 96 fl (80.0-100.0); MEAN CORPUSCULAR HGB CONC 27 g/dl (33.0-37.0); MEAN PLATELET VOLUME 9.7 fl (7.4-10.4); MONO # 0.6 K/mm3 (0.1-0.6); MONO % 8.3 % (1.7-9.3); PLATELET COUNT 135 K/mm3 (130-400); RED BLOOD COUNT 3.51 M/mm3 (4.10-5.30)
[2021-09-08 07:06] LABS: HEMATOCRIT 33.8 % (37.0-47.0); HEMOGLOBIN 9.2 g/dl (12.5-16.0); MEAN CORPUSCULAR HEMOGLOBIN 26 pg (27-31)
[2021-09-08 07:18] LABS: ALBUMIN 1.7 gm/dL (3.4-4.8); CALCIUM 7.6 mg/dL (8.4-10.2); CREATININE, serum 5.94 mg/dL (0.57-1.11); PHOSPHOROUS 1.5 mg/dL (2.3-4.7); POTASSIUM 5.2 mmol/L (3.5-4.5)
--- NOTE | 2021-09-08 10:17 | NUR ---
PATIENT IN BED RESTING. CHANGED LINES, WASHED HAIR. PATIENT INITIALLY IN BRIEF WITH MOISTURE BARRIER CLOTH IN GROIN AND UNDER ABD FOLDS. CHANGED PATIENT TO ANNABEL, WITH PURE WICK WITH ORDERED FUNGLE POWDER APPLICATION AND MOISTURE BARRIER CREAM. PATIENT CONFIRMED FULL CODE STATUS. PATIENT ON 3L NC. SKIN VERY WARM. EDUCATED PATIENT TO TURN AND REPOSITION EVERY 2 HOURS, HEELS FLOATED ON PILLOWS. BED LINENS AND GOWN CHANGED. SCANT GREEN/BLACK STOOL. PALIATIVE TALKS PENDING. DIALYSIS POSSIBLE TODAY. ST ON TELE. PATIENT REFUSED BREAKFAST. WILL MONITOR BLOOD GLUCOSE AND MENTAL STATUS.
--- NOTE | 2021-09-08 13:14 | NUR ---
Shiva, at [facility], is checking to see if the patient's PCP will follow the patient while at the hospice house. At this time, the patient is still a full code. The hospice house cannot take the patient if she is still a full code.
--- NOTE | 2021-09-08 18:27 | NUR ---
PATIENT RESTING IN BED ALL DAY TODAY. NO DYALSIS TODAY. CONSISTANTLY ST ON TELE. PATIENT LETHARGIC, AND STATES A FEELING OF "RUN DOWN AND WORN OUT". PATIENT EXPRESSED EPISODE OF CHEST PAIN, DESCRIBED THROBBING PRESSURE MIDSTERNAL, CONSTANT. ALVARO SINGH NOTIFIED, TROPNIN'S RAN, EKG OBTAINED, 0.5MG DILAUDID GIVEN AND VITALS TAKEN. PAIN RELIEVED WITH DILAUDID. TROPONIN'S POSITIVE, CARDIOLOGY CONSULTED, TRENDING TROP'S ORDERED. INFECTIOUS DISEASE CONSULTED AT END OF SHIFT TO ADVISE TREATMENT ON POSITIVE BLOOD CULTURES FOR E.COLI WHILE TREATING FOR C.DIFF. PATIENT AND FAMILY STILL DISCUSSING HOSPICE AND PALIATIVE CARE, CONSIDERING PATIENT CANCER DIAGNOSIS AND PROGNOSIS. BLOOD SUGARS TRENDING ABOVE 130, HOWEVER PATIENT NOT EATING. SHE DID TAKE IN ONE NEPRO SHAKE TODAY. PATIENT DAUGHTER VISITED AND EDUCATION PROVIDED REGUARDING PROPER PPE WORN AT BEDSIDE DURING VISITS, AND HAND WASHING AFTER VISITS.
--- NOTE | 2021-09-08 21:01 | NUR ---
Tx given via mouthpiece, tolerated well. Pt stated that she is not using her home unit [facility], "I prefer just the oxygen, the mask on mine won't stay on".
[2021-09-09 03:12] VITALS: BP 134/56; PULSE 95; TEMP 97.7
[2021-09-09 06:58] LABS: MEAN CELL VOLUME 94 fl (80.0-100.0); MEAN CORPUSCULAR HGB CONC 28 g/dl (33.0-37.0); MEAN PLATELET VOLUME 10.5 fl (7.4-10.4); PLATELET COUNT 112 K/mm3 (130-400); RED BLOOD COUNT 3.78 M/mm3 (4.10-5.30); REDCELL DISTRIBUTION WIDTH-CV 17.8 % (11.5-14.5)
[2021-09-09 07:02] LABS: HEMATOCRIT 35.7 % (37.0-47.0); HEMOGLOBIN 9.8 g/dl (12.5-16.0); MEAN CORPUSCULAR HEMOGLOBIN 26 pg (27-31)
[2021-09-09 07:14] LABS: ALBUMIN 1.8 gm/dL (3.4-4.8); CREATININE, serum 6.53 mg/dL (0.57-1.11); POTASSIUM 5.5 mmol/L (3.5-4.5)
[2021-09-09 08:16] VITALS: BP 116/43; PULSE 92; TEMP 99.2
--- NOTE | 2021-09-09 08:18 | NUR ---
Call made to patient's daughter, Sophia-left voicemail. Call made to patient's daughter, Anjana-she will coordinate a time for a family meeting and call me back.
[2021-09-09 08:28] LABS: BAND 5 % (0-10); EOSINOPHIL 1 % (0-4); LYMPHOCYTE 1 % (20.0-51.0); NEUTROPHILS 88 % (42.0-75.2)
[2021-09-09 08:29] LABS: ANISOCYTOSIS 1+; HYPOCHROMIA 3+; PLATELET ESTIMATE DECREASED (NORMAL)
--- NOTE | 2021-09-09 10:07 | NUR ---
Initial visit attempt; Patient in Isolation, Business Education Instructor left Prayer Card for nurse to deliver to [facility].
--- NOTE | 2021-09-09 10:21 | NUR ---
Received report from Jackeline MEDINA and Shiva RN that patient has decided to go comfort care and DNR status. Updated SW and hospice house-transfer time pending. Call made to patient's daughter Maria Antonia to update her; Maria Antonia stated that another daughter, Sophia, is en route to visit her mother here. Jackeline states she called Neha, another daughter in [place], and discussed her mother's decision.
[2021-09-09] MEDS ORDERED: SYSTANE 0.3-0.1 EACH OP (10:24)
[2021-09-09] MEDS ORDERED: ROXANOL 20MG20 MG/ML SL (10:24)
[2021-09-09] MEDS ORDERED: COMPAZINE25 MG/SUPP RC (10:24)
--- NOTE | 2021-09-09 10:58 | NUR ---
PERFORMED FULL BED CHANGE/ GOWN CHANGE AND BED BATH. PATIENT GREEN STICKY BOWEL MOVEMENT. NO URINE OUTPUT NOTED OVERNIGHT. PUREWICK NOT REPLACED. PATIENT REFUSED TELE MONITOR. PATIENT ALSO REFUSED MORNING MEDS. COORDINATED WITH NEPHROLOGY AND PALIATIVE CARE PATIENT HAS DETERMINED TO CHANGE CODE STATUS TO DNR/DNI AND COMFORT CARE MEASURES ONLY. PAIN MEDS ADMINISTERED. ON 1.5L OF O2 NASAL CANULA. HOB @45DEGREES. WINDOW SHADE OPENED, TEA PROVIDED, COMFORT PROVIDED. PLAN TO DISCHARGE TO HOSPICE HOUSE TODAY. FAMILY NOTIFIED BY NEPHROLOGY TRANSIT DRIVER, AND PALIATIVE CARE RN. ALL VITALS, GLUCOSE MONITORING, LABS AND SCANS CANCLED. WILL MONITOR PATIENT STATUS, PAIN LEVEL AND OXYGEN DEMANDS.
--- NOTE | 2021-09-09 11:46 | NUR ---
The patient and her daughters had a family meeting this morning about goals of care. The patient is wanting to pursue hospice at the hospice house and be DNR. Sh[facility] at [facility] was notified. Shiva states that they are able to accept the patient today and request a 1345 car pick up driver time. LEANDRO met with the patient, her daughters: Maria Antonia and Sophia, and her sister to update. The patient and her family are in agreement to the plan. LEANDRO presented and read the IM form and the EMS Consent form outloud to the patient's daughter, Maria Antonia. Maria Antonia verbalized understanding and of discharge today. She signed both forms. The patient is to discharge today, 09/09, to the [facility]. Transportation was arranged at 1335, via [facility]. LEANDRO informed the patient, her family, and RN of the time. No additional needs at this time.
--- NOTE | 2021-09-09 14:02 | NUR ---
PATIENT PICKED UP BY EMS TO TRANSPORT TO HOSPICE HOUSE. FAMILY AT BEDSIDE. NO COMPLAINTS OF PAIN.
== END 2021-09-09 14:03 | disposition hospice, home (50) | DRG 371 ==
LOC: MEDICAL 20:13
PROVIDERS: Registered Nurse; ADMIT Internal Medicine Nephrology
PROC: 5A1D70Z Performance of Urinary Filtration, Intermittent, Less than 6 Hours Per Day (ICD-10-PCS; principal; 2021-09-06)
DX: A04.72 Enterocolitis due to Clostridium difficile, not specified as recurrent (principal); N18.6 End stage renal disease; I13.2 Hypertensive heart and chronic kidney disease with heart failure and with stage 5 chronic kidney disease, or end stage renal disease; C25.0 Malignant neoplasm of head of pancreas; J96.11 Chronic respiratory failure with hypoxia; J96.12 Chronic respiratory failure with hypercapnia; N25.81 Secondary hyperparathyroidism of renal origin; C78.7 Secondary malignant neoplasm of liver and intrahepatic bile duct; I50.32 Chronic diastolic (congestive) heart failure; Z68.42 Body mass index [BMI] 45.0-49.9, adult; Z20.822 Contact with and (suspected) exposure to COVID-19; E11.649 Type 2 diabetes mellitus with hypoglycemia without coma; Z51.5 Encounter for palliative care; E11.22 Type 2 diabetes mellitus with diabetic chronic kidney disease; J44.9 Chronic obstructive pulmonary disease, unspecified; E66.01 Morbid (severe) obesity due to excess calories; D63.1 Anemia in chronic kidney disease; I25.10 Atherosclerotic heart disease of native coronary artery without angina pectoris; K21.9 Gastro-esophageal reflux disease without esophagitis; E83.39 Other disorders of phosphorus metabolism; I48.91 Unspecified atrial fibrillation; I95.9 Hypotension, unspecified; R00.0 Tachycardia, unspecified; G89.29 Other chronic pain; E78.5 Hyperlipidemia, unspecified; M54.9 Dorsalgia, unspecified; B96.20 Unspecified Escherichia coli [E. coli] as the cause of diseases classified elsewhere; Z99.2 Dependence on renal dialysis; Z79.4 Long term (current) use of insulin; Z79.891 Long term (current) use of opiate analgesic; Z85.528 Personal history of other malignant neoplasm of kidney; Z91.15 Patient's noncompliance with renal dialysis; Z90.5 Acquired absence of kidney
CPT/HCPCS: J1170; J1644; J1815; J7030; J7040; Q5105